=== PATIENT | male | born 1965 | race African-American/Black ===

== ENCOUNTER 2016-10-12 17:12 | Inpatient (IN) | payer OTHER ==
[~2016-10-12] VITALS: Ht 175.3 cm; Wt 125.6 kg
[~2016-10-12 17:12] MED LIST: ALBUTEROL SULF8.5 GM INH; ATORVASTATIN CA10 MG ORAL; NAPROXEN250 M1 PO
[2016-10-12 17:14] VITALS: BP 140/92
[2016-10-12 18:00] VITALS: BP 106/71
[2016-10-12 18:07] LABS: BASOPHILS % (AUTO) 1.1 % (0.0-2.0); EOSINOPHILS % (AUTO) 1.8 % (0.0-3.0); LYMPHOCYTES % (AUTO) 24.9 % (20.0-45.0); MEAN CORPUSCULAR HEMOGLOBIN 24.5 PG (27.0-31.0); MEAN CORPUSCULAR HGB CONC 32.1 G/DL (32.0-36.0); MEAN CORPUSCULAR VOLUME 76 FL (80-99); MONOCYTES % (AUTO) 6.2 % (1.0-10.0); NEUTROPHILS % (AUTO) 66.1 % (45.0-75.0); PLATELET COUNT 103 K/UL (150-450); RED BLOOD COUNT 5.75 M/UL (4.70-6.10); RED CELL DISTRIBUTION WIDTH 16.1 % (11.6-14.8); WHITE BLOOD COUNT 8.6 K/UL (4.8-10.8)
[2016-10-12] MEDS ORDERED: Solu-MEDROL 125mg Inj IVP ONE (18:15)
[2016-10-12] MEDS ORDERED: Ipratropium 0.02% Inh Soln 2.5ml UD HHN ONE (18:15)
[2016-10-12] MEDS ORDERED: Levalbuterol Inh UD 1.25mg/0.5ml HHN ONE (18:15)
[2016-10-12 18:17] LABS: INR 1.1 (0.9-1.1); PROTHROMBIN TIME 11.4 SEC (9.30-11.50)
--- NOTE | 2016-10-12 18:17 | Emergency Room Report ---
History of Present Illness General Chief Complaint: Chest Pain Source: Patient, Medical Record Present Illness HPI Patient presents with complaints of shortness of breath Patient reports that he was outside when he began feeling short of breath he felt that he was having an asthma attack In the next thing that he knows he passed out on the ground patient went to a store and told to call 911 Upon presentation complaining of shortness of breath Also has some chest tightness Denies any back or flank pain denies any vomiting or diarrhea patient reports being hospitalized one time in the past for his asthma He reports being out of his medications at this time Allergies: Coded Allergies: No Known Allergies (Unverified , 10/12/16) Patient History Past Medical History: see triage record Pertinent Family History: none Reviewed Nursing Documentation: PMH: Agreed, PSxH: Agreed Nursing Documentation-PMH Hx Asthma: Yes History Of Psychiatric Problem: Yes Review of Systems All Other Systems: negative except mentioned in HPI Physical Exam Vital Signs Date Time Temp Pulse Resp B/P Pulse Ox O2 Delivery O2 Flow Rate FiO2 10/12/16 17:04 98.2 163 20 140/92 96 Room Air Sp02 EP Interpretation: reviewed, normal General Appearance: mild distress - Appears short of breath Head: normocephalic, atraumatic Eyes: bilateral eye EOMI, bilateral eye PERRL ENT: hearing grossly normal, normal pharynx, TMs + canals normal, uvula midline Neck: full range of motion, supple, no meningismus, no bony tend Respiratory: respiratory distress, crackles, wheezing Cardiovascular #1: no edema, no gallop, no JVD, no murmur, tachycardia Gastrointestinal: normal bowel sounds, non tender, soft, no mass, no organomegaly, non-distended, no guarding, no hernia, no pulsatile mass, no rebound Genitourinary: no CVA tenderness Musculoskeletal: normal inspection Neurologic: oriented x3, responsive, 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 III-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 as tested, motor strength/ tone normal, sensory intact Psychiatric: mood/affect normal Skin: normal color, no rash, warm/dry, palpation normal Lymphatic: normal inspection, no adenopathy Procedures Critical Care Time Critical Care Time 40 minutes for multiple re\re evaluations Critical presentation with respiratory component Clinical diagnoses requiring acute intervention Not including any procedural time Medical Decision Making Diagnostic Impression: Primary Impression: Pulmonary emboli ER Course Patient is a fairly complex patient with multiple differential to consideration including but not limited to cardiac cardiopulmonary and vascular emergencies Patient's presentation is concerning for pulmonary embolism as well given the shortness of breath and tachycardia Patient's CT does show bilateral submassive pulmonary emboli Patient is provided with Lovenox at this time maintaining appropriate saturation Respirations also appropriate Consideration for further acute interventions made, however there is no higher level of care transfer capacity at this time to [facility] or [facility] And the patient will require further medical management Critical condition admitted to ICU Labs Test 10/12/16 17:50 10/12/16 18:00 10/12/16 19:00 White Blood Count 8.6 K/UL (4.8-10.8) Red Blood Count 5.75 M/UL (4.70-6.10) Hemoglobin 14.1 G/DL (14.2-18.0) Hematocrit 43.9 % (42.0-52.0) Mean Corpuscular Volume 76 FL (80-99) Mean Corpuscular Hemoglobin 24.5 PG (27.0-31.0) Mean Corpuscular Hemoglobin Concent 32.1 G/DL (32.0-36.0) Red Cell Distribution Width 16.1 % (11.6-14.8) Platelet Count 103 K/UL (150-450) Mean Platelet Volume 8.0 FL (6.5-10.1) Neutrophils (%) (Auto) 66.1 % (45.0-75.0) Lymphocytes (%) (Auto) 24.9 % (20.0-45.0) Monocytes (%) (Auto) 6.2 % (1.0-10.0) Eosinophils (%) (Auto) 1.8 % (0.0-3.0) Basophils (%) (Auto) 1.1 % (0.0-2.0) Prothrombin Time 11.4 SEC (9.30-11.50) Prothromb Time International Ratio 1.1 (0.9-1.1) Activated Partial Thromboplast Time 26 SEC (23-33) D-Dimer 34463 ng/mL (<500) Sodium Level 137 mEQ/L (135-145) Potassium Level 3.9 mEQ/L (3.4-4.9) Chloride Level 95 mEQ/L (98-107) Carbon Dioxide Level 19 mEQ/L (20-30) Anion Gap 23 (5-15) Blood Urea Nitrogen 13 mg/dL (7-23) Creatinine 1.5 mg/dL (0.7-1.2) Estimat Glomerular Filtration Rate 49.0 mL/min (>60) Glucose Level 128 mg/dL (74-106) Calcium Level 9.2 mg/dL (8.6-10.2) Total Bilirubin 0.4 mg/dL (0.0-1.2) Aspartate Amino Transf (AST/SGOT) 203 U/L (5-40) Alanine Aminotransferase (ALT/SGPT) 134 U/L (3-41) Alkaline Phosphatase 171 U/L (40-129) Total Creatine Kinase 188 U/L (38-174) Creatine Kinase MB 3.2 ng/mL (< 6.7) Creatine Kinase MB Relative Index 1.7 Troponin I < 0.30 ng/mL (<=0.30) Pro-B-Type Natriuretic Peptide 406 pg/mL (0-125) Total Protein 7.7 g/dL (6.6-8.7) Albumin 3.8 g/dL (3.5-5.2) Globulin 3.9 g/dL Albumin/Globulin Ratio 0.9 (1.0-2.7) Lipase 48 U/L (< 60) Lactic Acid Level 4.10 mmol/L (0.66-2.22) 3.00 mmol/L (0.66-2.22) Urine Opiates Screen Negative (NEGATIVE) Urine Barbiturates Screen Negative (NEGATIVE) Phencyclidine (PCP) Screen Negative (NEGATIVE) Urine Amphetamines Screen Negative (NEGATIVE) Urine Benzodiazepines Screen Negative (NEGATIVE) Urine Cocaine Screen Negative (NEGATIVE) Urine Marijuana (THC) Screen Negative (NEGATIVE) EKG Diagnostic Results Rate: tachycardiac Rhythm: other ST Segments: other Rhythm Strip Diag. Results EP Interpretation: yes Rate: 120 Rhythm: no PVC's, no ectopy, other - Sinus tach Chest X-Ray Diagnostic Results EP Interpretation: Yes Findings: no effusion, no pneumothorax, other - Right mid lobe hazziness, nonspecific Number of Views: 1 CT/MRI/US Diagnostic Results CT/MRI/US Diagnostic Results : Impression CT chest: Bilateral submassive pulmonary emboli with small cell component, and large the right ventricular finding relative to left ventricle suspicious for right heart strain 2.5 cm mass with adjacent mass changes right upper lobe suspicious for carcinoma Last Vital Signs Date Time Temp Pulse Resp B/P Pulse Ox O2 Delivery O2 Flow Rate FiO2 10/12/16 17:14 98.2 81 20 140/92 96 Room Air Status: improved Disposition: ADMITTED INPATIENT Condition: Critical VENU ALONSO D.O. Oct 12, 2016 18:17
[2016-10-12 18:25] LABS: ALBUMIN/GLOBULIN RATIO 0.9 (1.0-2.7); CALCIUM 9.2 mg/dL (8.6-10.2); CREATININE 1.5 mg/dL (0.7-1.2); POTASSIUM 3.9 mEQ/L (3.4-4.9); TOTAL PROTEIN 7.7 g/dL (6.6-8.7)
[2016-10-12 18:26] LABS: TROPONIN I < 0.30 ng/mL (<=0.30)
[2016-10-12 18:37] LABS: CKMB 3.2 ng/mL (< 6.7)
[2016-10-12 18:53] LABS: REFLEX LACTIC ACID YES OR NO YES
[2016-10-12 18:58] VITALS: BP 118/74
[2016-10-12 20:32] VITALS: BP 119/86
[2016-10-12] MEDS ORDERED: Enoxaparin 150mg Inj SUBQ SCH (21:00)
[2016-10-12 22:18] VITALS: BP 139/104
[2016-10-12 23:27] VITALS: BP 136/96
[2016-10-12] MEDS ORDERED: Morphine Sulfate 2mg/ml Inj IVP PRN (23:30)
[2016-10-12] MEDS ORDERED: Nitroglycerin Subl 0.4mg tab (Bottle Of 25) SL PRN (23:30)
[2016-10-12] MEDS ORDERED: Mylanta II UD 30ml ORAL PRN (23:30)
[2016-10-12] MEDS ORDERED: Miralax 17gm pkt ORAL PRN (23:30)
[2016-10-12] MEDS ORDERED: DuoNeb 0.5-3(2.5)mg/3ml neb HHN PRN (23:30)
--- NOTE | 2016-10-12 23:30 | History and Physical ---
History of Present Illness General Date patient seen: Oct 12, 2016 Reason for Hospitalization: Chest Pain Present Illness HPI 51 year old male with hx of Asthma, presents with complaints of shortness of breath then he passed out on. Upon presentation to ER he was complaining of shortness of breath also has some chest tightness. A CT of chest showed bilateral pulmonary embolism. He was started on Heparin drip and transferred to ICU. Allergies: Coded Allergies: IBUPROFEN (Verified Allergy, Unknown, 10/13/16) Medication History Scheduled Albuterol Sulfate* (Albuterol Sulfate Mdi*), 2 PUFF INH Q4H, (Reported) Atorvastatin Calcium* (Lipitor*), 10 MG ORAL BEDTIME, (Reported) Miscellaneous Medications Naproxen (Naproxen), 250 MG PO, (Reported) Patient History Healthcare decision maker Resuscitation status Advanced Directive on File Past Medical/Surgical History Past Medical/Surgical History: (1) History of asthma Review of Systems All Other Systems: negative except mentioned in HPI Physical Exam General Appearance: WD/WN Lines, tubes and drains: peripheral HEENT: normocephalic, atraumatic Neck: non-tender, normal alignment Respiratory/Chest: chest wall non-tender, lungs clear Cardiovascular/Chest: normal peripheral pulses, normal rate Genitourinary/Rectal: normal genital exam Extremities: normal range of motion Last 24 Hour Vital Signs Date Time Temp Pulse Resp B/P Pulse Ox O2 Delivery O2 Flow Rate FiO2 10/12/16 23:27 98.2 114 23 136/96 95 Nasal Cannula 3.0 10/12/16 22:18 98.2 110 23 139/104 95 Nasal Cannula 3.0 10/12/16 20:32 98.2 118 23 119/86 96 Simple Mask 4.0 10/12/16 18:58 132 22 118/74 97 Room Air 10/12/16 18:29 129 23 97 Simple Mask 3.0 10/12/16 18:28 127 17 Simple Mask 3.0 10/12/16 18:28 129 22 98 Simple Mask 3.0 10/12/16 18:27 131 18 Simple Mask 3.0 10/12/16 18:00 128 24 106/71 95 Room Air 10/12/16 17:14 98.2 81 20 140/92 96 Room Air 10/12/16 17:14 163 20 Room Air 10/12/16 17:04 98.2 163 20 140/92 96 Room Air Laboratory Tests Test 10/12/16 17:50 10/12/16 18:00 10/12/16 19:00 White Blood Count 8.6 K/UL (4.8-10.8) Red Blood Count 5.75 M/UL (4.70-6.10) Hemoglobin 14.1 G/DL (14.2-18.0) L Hematocrit 43.9 % (42.0-52.0) Mean Corpuscular Volume 76 FL (80-99) L Mean Corpuscular Hemoglobin 24.5 PG (27.0-31.0) L Mean Corpuscular Hemoglobin Concent 32.1 G/DL (32.0-36.0) Red Cell Distribution Width 16.1 % (11.6-14.8) H Platelet Count 103 K/UL (150-450) L Mean Platelet Volume 8.0 FL (6.5-10.1) Neutrophils (%) (Auto) 66.1 % (45.0-75.0) Lymphocytes (%) (Auto) 24.9 % (20.0-45.0) Monocytes (%) (Auto) 6.2 % (1.0-10.0) Eosinophils (%) (Auto) 1.8 % (0.0-3.0) Basophils (%) (Auto) 1.1 % (0.0-2.0) Prothrombin Time 11.4 SEC (9.30-11.50) Prothromb Time International Ratio 1.1 (0.9-1.1) Activated Partial Thromboplast Time 26 SEC (23-33) D-Dimer 92142 ng/mL (<500) H Sodium Level 137 mEQ/L (135-145) Potassium Level 3.9 mEQ/L (3.4-4.9) Chloride Level 95 mEQ/L (98-107) L Carbon Dioxide Level 19 mEQ/L (20-30) L Anion Gap 23 (5-15) H Blood Urea Nitrogen 13 mg/dL (7-23) Creatinine 1.5 mg/dL (0.7-1.2) H Estimat Glomerular Filtration Rate 49.0 mL/min (>60) Glucose Level 128 mg/dL (74-106) H Calcium Level 9.2 mg/dL (8.6-10.2) Total Bilirubin 0.4 mg/dL (0.0-1.2) Aspartate Amino Transf (AST/SGOT) 203 U/L (5-40) H Alanine Aminotransferase (ALT/SGPT) 134 U/L (3-41) H Alkaline Phosphatase 171 U/L (40-129) H Total Creatine Kinase 188 U/L (38-174) H Creatine Kinase MB 3.2 ng/mL (< 6.7) Creatine Kinase MB Relative Index 1.7 Troponin I < 0.30 ng/mL (<=0.30) Pro-B-Type Natriuretic Peptide 406 pg/mL (0-125) H Total Protein 7.7 g/dL (6.6-8.7) Albumin 3.8 g/dL (3.5-5.2) Globulin 3.9 g/dL Albumin/Globulin Ratio 0.9 (1.0-2.7) L Lipase 48 U/L (< 60) Lactic Acid Level 4.10 mmol/L (0.66-2.22) H 3.00 mmol/L (0.66-2.22) H Urine Opiates Screen Negative (NEGATIVE) Urine Barbiturates Screen Negative (NEGATIVE) Phencyclidine (PCP) Screen Negative (NEGATIVE) Urine Amphetamines Screen Negative (NEGATIVE) Urine Benzodiazepines Screen Negative (NEGATIVE) Urine Cocaine Screen Negative (NEGATIVE) Urine Marijuana (THC) Screen Negative (NEGATIVE) Height (Feet): 5 Height (Inches): 11.00 Weight (Pounds): 278 Medications Current Medications Medications (Trade) Dose Ordered Sig/Katia Route PRN Reason Start Time Stop Time Status Last Admin Dose Admin Enoxaparin Sodium (Lovenox) 130 mg EVERY 12 HOURS SUBQ 10/12/16 21:00 11/11/16 20:59 10/12/16 21:17 Assessment/Plan Problem List: (1) Pulmonary emboli ICD Codes: I26.99 - Other pulmonary embolism without acute cor pulmonale SNOMED: 28287062, 13074125 (2) Acute encephalopathy ICD Codes: G93.40 - Encephalopathy, unspecified SNOMED: 2115371 (3) Lung mass ICD Codes: R91.8 - Other nonspecific abnormal finding of lung field SNOMED: 657042316 (4) History of asthma ICD Codes: Z87.09 - Personal history of other diseases of the respiratory system SNOMED: 770952719 Respiratory: monitor respiratory rate, CXR Cardiac: continue to monitor HR/BP Renal: F/U I&O, check electrolytes Gastrointestinal: continue feedings/current rate Hematologic: other - continue heparin drip Neurologic: PRN Ativan, PRN Morphine Prophylaxis: Protonix Disposition: keep in ICU Discussed with: other - check CEA SATURNINO GALLEGOS Oct 12, 2016 23:30
[2016-10-13] VITALS (24 sets, daily range): BP systolic 111–162; BP diastolic 52–115
[2016-10-13 06:31] LABS: MEAN CORPUSCULAR HGB CONC 31.2 G/DL (32.0-36.0); MEAN CORPUSCULAR VOLUME 77 FL (80-99); MEAN PLATELET VOLUME 8.7 FL (6.5-10.1); PLATELET COUNT 139 K/UL (150-450); RED BLOOD COUNT 5.94 M/UL (4.70-6.10); RED CELL DISTRIBUTION WIDTH 16.6 % (11.6-14.8); WHITE BLOOD COUNT 7.7 K/UL (4.8-10.8)
[2016-10-13 06:46] LABS: INR 1.2 (0.9-1.1)
[2016-10-13 07:11] LABS: ALANINE AMINOTRANSFERASE 111 U/L (3-41); ALBUMIN/GLOBULIN RATIO 0.9 (1.0-2.7); ANION GAP 19 (5-15); ASPARTATE AMINO TRANSFERASE 80 U/L (5-40); CALCIUM 9.2 mg/dL (8.6-10.2); CARBON DIOXIDE 19 mEQ/L (20-30); CHLORIDE 100 mEQ/L (98-107); CREATININE 1.3 mg/dL (0.7-1.2); GLOMERULAR FILTRATION RATE > 60 mL/min (>60); HEMOLYSIS 2; SODIUM 138 mEQ/L (135-145); TOTAL PROTEIN 7.5 g/dL (6.6-8.7)
[2016-10-13] MEDS ORDERED: Heparin 25,000u/D5W 500ml 500 ML IV SCH ×2 (08:00)
[2016-10-13] MEDS ORDERED: Heparin 25,000u/D5W 500ml (VTE/AF) IV SCH ×2 (08:00→16:34)
[2016-10-13] MEDS ORDERED: Heparin 5000 units/ml inj IV ONE (08:00)
--- NOTE | 2016-10-13 10:28 | Diagnostic Imaging Report ---
ndication: SOB Technique: IV administration nonionic contrast. Spiral acquisitions obtained from the lung bases to the lung apices. Multiplanar and 3-D reconstructions were generated. Total dose length product 1045 mGycm. CTDIvol(s) filter 3, 113, 33 mGy Comparison: None Findings: There is good quality opacification of pulmonary arteries. Filling defects are seen in the distal right main pulmonary artery, and extending into the right upper lobe, right middle lobe, right lower lobe branches. Bullous is seen in the distal left main pulmonary artery, with emboli extending into the main left upper lobe branch and several segmental branches, into the main left lower lobe branch and segmental branches. There is mild dilatation of the right ventricle, which is wider than the left ventricle, suspicious for right heart strain. The pulmonary arteries are not thickened dilated. No thoracic aortic aneurysm or dissection. There is a 3.2 x 2 cm pleural-based mass in the periphery of the right upper lobe, with adjacent 14 mm satellite mass. No definite mediastinal lymphadenopathy. There are calcifications within left hilar lymph nodes The left lung base demonstrates some scarring or atelectasis. The remainder the lungs are clear. The pleural spaces are clear. The included thyroid is unremarkable. No axillary or chest wall mass or adenopathy. The included upper abdomen is unremarkable. Impression: Findings consistent with acute submassive bilateral pulmonary embolic disease. Relative dilatation of the right ventricle is highly suggestive of right heart strain 3.2 cm pleural-based right lung mass with satellite nodule, worrisome for pulmonary malignancy Evidence of old granulomatous disease within left hilar lymph nodes This agrees with the preliminary interpretation provided overnight by Dr. Myers. Dr. Myers also discussed the critical findings with Dr. Lazaro at 2004 on 10/12/[address] scanner at [facility] is accredited by the [employer] and the scans are performed using protocols designed to limit radiation exposure to as low as reasonably achievable to attain images of sufficient resolution adequate for diagnostic evaluation.
[2016-10-13] MEDS ORDERED: NS 275ml ONE (10:56)
[2016-10-13] MEDS ORDERED: Tubing IV Secondary IV ONE (10:56)
--- NOTE | 2016-10-13 11:17 | Diagnostic Imaging Report ---
Indication: CP Technique: One view of the chest Comparison: none Findings: There is a mass in the right midlung which measures approximately 2.3 cm diameter, corresponds to mass demonstrated in the same location on subsequent CT scan. The lungs and pleural spaces are otherwise clear. Heart size is normal. Impression: Right lung mass, corresponding to abnormality described on subsequent CT scan, concerning for neoplasm No acute process otherwise
--- NOTE | 2016-10-13 12:17 | Pulmonolgy Critical Care Note ---
Critical Care - Asmt/Plan Problems: (1) Pulmonary emboli (2) Acute encephalopathy (3) Lung mass (4) History of asthma Respiratory: monitor respiratory rate Cardiac: continue to monitor HR/BP Renal: F/U I&O, check electrolytes Hematologic: other - heparin drip, avoid coumadin now, since pt will need lung biospy Neurologic: PRN Ativan Affect: PRN ativan Prophylaxis: Protonix Critical Care - Objective Last 24 Hour Vital Signs Date Time Temp Pulse Resp B/P Pulse Ox O2 Delivery O2 Flow Rate FiO2 10/13/16 11:53 91 10/13/16 11:51 97.9 101 22 139/91 Nasal Cannula 2.0 10/13/16 11:03 88 18 124/82 98 Nasal Cannula 3.0 10/13/16 10:03 96 21 138/94 98 Nasal Cannula 3.0 10/13/16 08:57 96 22 124/86 96 Nasal Cannula 3.0 10/13/16 07:47 97.9 87 19 127/86 98 Nasal Cannula 3.0 10/13/16 07:45 87 10/13/16 07:10 94 Nasal Cannula 4.0 36 10/13/16 07:10 Nasal Cannula 4.0 36 10/13/16 07:10 85 18 Simple Mask 4.0 36 10/13/16 07:00 90 20 124/86 96 Nasal Cannula 3.0 10/13/16 06:00 86 20 112/89 96 Nasal Cannula 3.0 10/13/16 05:00 88 18 111/87 95 Nasal Cannula 3.0 10/13/16 04:00 97.9 91 18 125/87 95 Nasal Cannula 3.0 10/13/16 03:00 93 19 126/91 95 Nasal Cannula 3.0 10/13/16 02:00 99 19 122/92 96 Nasal Cannula 3.0 10/13/16 01:00 103 19 118/87 95 Nasal Cannula 3.0 10/13/16 00:25 98.1 106 21 162/115 95 Nasal Cannula 3.0 10/13/16 00:13 107 10/12/16 23:48 98.2 114 23 136/96 95 Nasal Cannula 3.0 10/12/16 23:27 98.2 114 23 136/96 95 Nasal Cannula 3.0 10/12/16 22:18 98.2 110 23 139/104 95 Nasal Cannula 3.0 10/12/16 20:32 98.2 118 23 119/86 96 Simple Mask 4.0 10/12/16 18:58 132 22 118/74 97 Room Air 10/12/16 18:29 129 23 97 Simple Mask 3.0 10/12/16 18:28 127 17 Simple Mask 3.0 10/12/16 18:28 129 22 98 Simple Mask 3.0 10/12/16 18:27 131 18 Simple Mask 3.0 10/12/16 18:00 128 24 106/71 95 Room Air 10/12/16 17:14 98.2 81 20 140/92 96 Room Air 10/12/16 17:14 163 20 Room Air 10/12/16 17:04 98.2 163 20 140/92 96 Room Air Status: awake Condition: critical, improving HEENT: atraumatic Neck: full ROM Lungs: clear Heart: HR/BP stable Abdomen: soft, non-tender Extremities: no C/C/E Decubiti: location Critical Care - Subjective ROS Limited/Unobtainable: No ICU Day: 2 Condition: critical, improving EKG Rhythm: Sinus Rhythm FI02: 36 Sputum Amount: None I&O: Intake and Output 10/12/16 10/13/16 19:00 07:00 Intake Total 2390 ml Output Total 1230 ml Balance 1160 ml Intake Oral 240 ml IV Total 2150 ml Output Urine Total 1230 ml # Voids 1 1 Labs: Laboratory Tests Test 10/12/16 17:50 10/12/16 18:00 10/12/16 19:00 10/13/16 05:35 White Blood Count 8.6 K/UL (4.8-10.8) 7.7 K/UL (4.8-10.8) Red Blood Count 5.75 M/UL (4.70-6.10) 5.94 M/UL (4.70-6.10) Hemoglobin 14.1 G/DL (14.2-18.0) L 14.2 G/DL (14.2-18.0) Hematocrit 43.9 % (42.0-52.0) 45.6 % (42.0-52.0) Mean Corpuscular Volume 76 FL (80-99) L 77 FL (80-99) L Mean Corpuscular Hemoglobin 24.5 PG (27.0-31.0) L 24.0 PG (27.0-31.0) L Mean Corpuscular Hemoglobin Concent 32.1 G/DL (32.0-36.0) 31.2 G/DL (32.0-36.0) L Red Cell Distribution Width 16.1 % (11.6-14.8) H 16.6 % (11.6-14.8) H Platelet Count 103 K/UL (150-450) L 139 K/UL (150-450) L Mean Platelet Volume 8.0 FL (6.5-10.1) 8.7 FL (6.5-10.1) Neutrophils (%) (Auto) 66.1 % (45.0-75.0) % (45.0-75.0) Lymphocytes (%) (Auto) 24.9 % (20.0-45.0) % (20.0-45.0) Monocytes (%) (Auto) 6.2 % (1.0-10.0) % (1.0-10.0) Eosinophils (%) (Auto) 1.8 % (0.0-3.0) % (0.0-3.0) Basophils (%) (Auto) 1.1 % (0.0-2.0) % (0.0-2.0) Prothrombin Time 11.4 SEC (9.30-11.50) 12.0 SEC (9.30-11.50) H Prothromb Time International Ratio 1.1 (0.9-1.1) 1.2 (0.9-1.1) H Activated Partial Thromboplast Time 26 SEC (23-33) 32 SEC (23-33) D-Dimer 58545 ng/mL (<500) H Sodium Level 137 mEQ/L (135-145) 138 mEQ/L (135-145) Potassium Level 3.9 mEQ/L (3.4-4.9) 5.0 mEQ/L (3.4-4.9) H Chloride Level 95 mEQ/L (98-107) L 100 mEQ/L (98-107) Carbon Dioxide Level 19 mEQ/L (20-30) L 19 mEQ/L (20-30) L Anion Gap 23 (5-15) H 19 (5-15) H Blood Urea Nitrogen 13 mg/dL (7-23) 12 mg/dL (7-23) Creatinine 1.5 mg/dL (0.7-1.2) H 1.3 mg/dL (0.7-1.2) H Estimat Glomerular Filtration Rate 49.0 mL/min (>60) > 60 mL/min (>60) Glucose Level 128 mg/dL (74-106) H 144 mg/dL (74-106) H Calcium Level 9.2 mg/dL (8.6-10.2) 9.2 mg/dL (8.6-10.2) Total Bilirubin 0.4 mg/dL (0.0-1.2) 0.2 mg/dL (0.0-1.2) Aspartate Amino Transf (AST/SGOT) 203 U/L (5-40) H 80 U/L (5-40) H Alanine Aminotransferase (ALT/SGPT) 134 U/L (3-41) H 111 U/L (3-41) H Alkaline Phosphatase 171 U/L (40-129) H 151 U/L (40-129) H Total Creatine Kinase 188 U/L (38-174) H Creatine Kinase MB 3.2 ng/mL (< 6.7) Creatine Kinase MB Relative Index 1.7 Troponin I < 0.30 ng/mL (<=0.30) Pro-B-Type Natriuretic Peptide 406 pg/mL (0-125) H Total Protein 7.7 g/dL (6.6-8.7) 7.5 g/dL (6.6-8.7) Albumin 3.8 g/dL (3.5-5.2) 3.7 g/dL (3.5-5.2) Globulin 3.9 g/dL 3.8 g/dL Albumin/Globulin Ratio 0.9 (1.0-2.7) L 0.9 (1.0-2.7) L Lipase 48 U/L (< 60) Lactic Acid Level 4.10 mmol/L (0.66-2.22) H 3.00 mmol/L (0.66-2.22) H 1.70 mmol/L (0.66-2.22) Urine Opiates Screen Negative (NEGATIVE) Urine Barbiturates Screen Negative (NEGATIVE) Phencyclidine (PCP) Screen Negative (NEGATIVE) Urine Amphetamines Screen Negative (NEGATIVE) Urine Benzodiazepines Screen Negative (NEGATIVE) Urine Cocaine Screen Negative (NEGATIVE) Urine Marijuana (THC) Screen Negative (NEGATIVE) SATURNINO GALLEGOS Oct 13, 2016 12:17
--- NOTE | 2016-10-13 13:01 | Cardiology Progress Note ---
Subjective Subjective syncope asthma submassive pulmonary embolism lung mass asthma history echo trop ekg heparin ivf will follow thank you [id number] Objective Last 24 Hour Vital Signs Date Time Temp Pulse Resp B/P Pulse Ox O2 Delivery O2 Flow Rate FiO2 10/13/16 11:53 91 10/13/16 11:51 97.9 101 22 139/91 Nasal Cannula 2.0 10/13/16 11:03 88 18 124/82 98 Nasal Cannula 3.0 10/13/16 10:03 96 21 138/94 98 Nasal Cannula 3.0 10/13/16 08:57 96 22 124/86 96 Nasal Cannula 3.0 10/13/16 07:47 97.9 87 19 127/86 98 Nasal Cannula 3.0 10/13/16 07:45 87 10/13/16 07:10 94 Nasal Cannula 4.0 36 10/13/16 07:10 Nasal Cannula 4.0 36 10/13/16 07:10 85 18 Simple Mask 4.0 36 10/13/16 07:00 90 20 124/86 96 Nasal Cannula 3.0 10/13/16 06:00 86 20 112/89 96 Nasal Cannula 3.0 10/13/16 05:00 88 18 111/87 95 Nasal Cannula 3.0 10/13/16 04:00 97.9 91 18 125/87 95 Nasal Cannula 3.0 10/13/16 03:00 93 19 126/91 95 Nasal Cannula 3.0 10/13/16 02:00 99 19 122/92 96 Nasal Cannula 3.0 10/13/16 01:00 103 19 118/87 95 Nasal Cannula 3.0 10/13/16 00:25 98.1 106 21 162/115 95 Nasal Cannula 3.0 10/13/16 00:13 107 10/12/16 23:48 98.2 114 23 136/96 95 Nasal Cannula 3.0 10/12/16 23:27 98.2 114 23 136/96 95 Nasal Cannula 3.0 10/12/16 22:18 98.2 110 23 139/104 95 Nasal Cannula 3.0 10/12/16 20:32 98.2 118 23 119/86 96 Simple Mask 4.0 10/12/16 18:58 132 22 118/74 97 Room Air 10/12/16 18:29 129 23 97 Simple Mask 3.0 10/12/16 18:28 127 17 Simple Mask 3.0 10/12/16 18:28 129 22 98 Simple Mask 3.0 10/12/16 18:27 131 18 Simple Mask 3.0 10/12/16 18:00 128 24 106/71 95 Room Air 10/12/16 17:14 98.2 81 20 140/92 96 Room Air 10/12/16 17:14 163 20 Room Air 10/12/16 17:04 98.2 163 20 140/92 96 Room Air Intake and Output 10/12/16 10/13/16 19:00 07:00 Intake Total 2390 ml Output Total 1230 ml Balance 1160 ml Intake Oral 240 ml IV Total 2150 ml Output Urine Total 1230 ml # Voids 1 1 Laboratory Tests Test 10/12/16 17:50 10/12/16 18:00 10/12/16 19:00 10/13/16 05:35 White Blood Count 8.6 K/UL (4.8-10.8) 7.7 K/UL (4.8-10.8) Red Blood Count 5.75 M/UL (4.70-6.10) 5.94 M/UL (4.70-6.10) Hemoglobin 14.1 G/DL (14.2-18.0) L 14.2 G/DL (14.2-18.0) Hematocrit 43.9 % (42.0-52.0) 45.6 % (42.0-52.0) Mean Corpuscular Volume 76 FL (80-99) L 77 FL (80-99) L Mean Corpuscular Hemoglobin 24.5 PG (27.0-31.0) L 24.0 PG (27.0-31.0) L Mean Corpuscular Hemoglobin Concent 32.1 G/DL (32.0-36.0) 31.2 G/DL (32.0-36.0) L Red Cell Distribution Width 16.1 % (11.6-14.8) H 16.6 % (11.6-14.8) H Platelet Count 103 K/UL (150-450) L 139 K/UL (150-450) L Mean Platelet Volume 8.0 FL (6.5-10.1) 8.7 FL (6.5-10.1) Neutrophils (%) (Auto) 66.1 % (45.0-75.0) % (45.0-75.0) Lymphocytes (%) (Auto) 24.9 % (20.0-45.0) % (20.0-45.0) Monocytes (%) (Auto) 6.2 % (1.0-10.0) % (1.0-10.0) Eosinophils (%) (Auto) 1.8 % (0.0-3.0) % (0.0-3.0) Basophils (%) (Auto) 1.1 % (0.0-2.0) % (0.0-2.0) Prothrombin Time 11.4 SEC (9.30-11.50) 12.0 SEC (9.30-11.50) H Prothromb Time International Ratio 1.1 (0.9-1.1) 1.2 (0.9-1.1) H Activated Partial Thromboplast Time 26 SEC (23-33) 32 SEC (23-33) D-Dimer 47441 ng/mL (<500) H Sodium Level 137 mEQ/L (135-145) 138 mEQ/L (135-145) Potassium Level 3.9 mEQ/L (3.4-4.9) 5.0 mEQ/L (3.4-4.9) H Chloride Level 95 mEQ/L (98-107) L 100 mEQ/L (98-107) Carbon Dioxide Level 19 mEQ/L (20-30) L 19 mEQ/L (20-30) L Anion Gap 23 (5-15) H 19 (5-15) H Blood Urea Nitrogen 13 mg/dL (7-23) 12 mg/dL (7-23) Creatinine 1.5 mg/dL (0.7-1.2) H 1.3 mg/dL (0.7-1.2) H Estimat Glomerular Filtration Rate 49.0 mL/min (>60) > 60 mL/min (>60) Glucose Level 128 mg/dL (74-106) H 144 mg/dL (74-106) H Calcium Level 9.2 mg/dL (8.6-10.2) 9.2 mg/dL (8.6-10.2) Total Bilirubin 0.4 mg/dL (0.0-1.2) 0.2 mg/dL (0.0-1.2) Aspartate Amino Transf (AST/SGOT) 203 U/L (5-40) H 80 U/L (5-40) H Alanine Aminotransferase (ALT/SGPT) 134 U/L (3-41) H 111 U/L (3-41) H Alkaline Phosphatase 171 U/L (40-129) H 151 U/L (40-129) H Total Creatine Kinase 188 U/L (38-174) H Creatine Kinase MB 3.2 ng/mL (< 6.7) Creatine Kinase MB Relative Index 1.7 Troponin I < 0.30 ng/mL (<=0.30) Pro-B-Type Natriuretic Peptide 406 pg/mL (0-125) H Total Protein 7.7 g/dL (6.6-8.7) 7.5 g/dL (6.6-8.7) Albumin 3.8 g/dL (3.5-5.2) 3.7 g/dL (3.5-5.2) Globulin 3.9 g/dL 3.8 g/dL Albumin/Globulin Ratio 0.9 (1.0-2.7) L 0.9 (1.0-2.7) L Lipase 48 U/L (< 60) Lactic Acid Level 4.10 mmol/L (0.66-2.22) H 3.00 mmol/L (0.66-2.22) H 1.70 mmol/L (0.66-2.22) Urine Opiates Screen Negative (NEGATIVE) Urine Barbiturates Screen Negative (NEGATIVE) Phencyclidine (PCP) Screen Negative (NEGATIVE) Urine Amphetamines Screen Negative (NEGATIVE) Urine Benzodiazepines Screen Negative (NEGATIVE) Urine Cocaine Screen Negative (NEGATIVE) Urine Marijuana (THC) Screen Negative (NEGATIVE) MICHAEL VACA Oct 13, 2016 13:01
--- NOTE | 2016-10-13 21:48 | Consultation ---
DATE OF CONSULTATION: 10/13/2016 REFERRING PHYSICIAN: Marcella Parker M.D. REASON FOR REFERRAL: Tachycardia. HISTORY OF PRESENT ILLNESS: This is a 51-year-old gentleman, who tells me that he has had some problems with asthma and he is walking to the store that he was talking and apparently passed out and found himself on the floor. He was having a lot of shortness of breath and eventually got himself up to the store and told him that he was having an asthma attack. Paramedics were summoned by the staff. Paramedics found the patient was sitting in the chair of the supermarket. Skin was dry, warm, and pale. The patient was admitted some albuterol and the patient respirations were at 30 beats per minute with decreased tidal volume and he get some improvement. He indicated that he had some tightness across his chest that was not radiating and lasted approximately 20 minutes and was given aspirin and nitroglycerin and was subsequently transferred to the Emergency Room at [facility]. His chest tightness is different that what he has had before. He does have some shortness of breath wake him up at night. He uses albuterol. He uses 2 pillows. He has had significant amount of dizziness when he stands up or walks apparently and has had some palpitations. PAST MEDICAL HISTORY: Positive for history of hyperlipidemia as well as asthma. No history of heart attack or cancer or stroke. No hepatitis or tuberculosis. No ulcers. No kidney, liver, thyroid problems, prostate problems, anemia, arthritis, blood clots, or prostate problems. ALLERGIES: He is allergic to ibuprofen. SOCIAL HISTORY: He never smoke or drink alcoholic beverages. Denies any drug use. REVIEW OF SYSTEMS: Gastrointestinal: Really negative. Genitourinary: Negative. Pulmonary: Positive for coughing, shortness of breath, or chest pain. Constitutional: Denies. Neurological: Negative. PHYSICAL EXAMINATION: GENERAL: Shows to be obese, middle-aged gentleman, in no apparent respiratory distress, although he is somewhat tachycardic and tachypneic, but not to the extent that was reported yesterday. LUNGS: He has had some decreased breath sounds. He has got expiratory wheezes. CARDIAC: Regular rate and rhythm. No heaves or thrills noted. ABDOMEN: Soft and obese. Positive bowel sounds. Nontender. EXTREMITIES: There is trace edema of lower extremities bilaterally. NEUROLOGIC: He is awake, alert, responsive, in no apparent respiratory distress. LABORATORY AND DIAGNOSTIC DATA: An EKG performed in the emergency room showed profound degree of sinus tachycardia rate of 146 beats per minute and no ST or T-wave of abnormalities of any significant degree. His white count is 7.7, hemoglobin 14.2, and platelet count of 139,000. Sodium was 130, potassium 5.3, chloride 100, bicarbonate 19, BUN 12, and creatinine 1.3. His lactic acid was 4.1, down to 1.7. His AST of 80, ALT of 150, and alkaline phosphatase of 151. Troponin 1 set was less than 0.03. His proBNP was only 406 at time of admission. His albumin was 3.7. His coags, INR of 1.2 and PTT of 32. His D-dimer was 16,093. He had a chest x-ray in the emergency room that shows right lung mass corresponding to abnormality for a neoplasm and a CT scan of the chest. CT pulmonary angiogram shows filling defect is seen in the distal right main pulmonary artery extending to the right upper lobe. This is all consistent with acute submassive pulmonary embolism relative dilatation of the right ventricle of 3.2 cm pleural-based lung mass. ASSESSMENT: 1. Syncope. 2. Submassive right pulmonary artery pulmonary embolism. 3. Sinus tachycardia secondary to above. 4. Pleural based lung mass. 5. History of asthma. PLAN: Dr. Parker, this patient was seen in cardiac consultation. The patient is on anticoagulation at the present time. His etiology of pulmonary embolism likely may be related to his reported possible neoplasm mass in the chest cavity. Workup will be left you and echocardiogram will be ordered to evaluate for RV strain and pulmonary artery systolic pressure and consider venous duplex study of the lower extremities to be performed. Cardiac enzymes will be ordered, although I suspect that may have abnormality may be present because of pulmonary embolism as well. We will follow the patient along with you. For his syncope, he needs intravenous hydration and we will repeat an echocardiogram. He appears to be somewhat sinus tachycardia that may be related to pulmonary embolism. I will follow the patient along with you. Caio Wills M.D. DR: HANSA JOB#: [id number] CC:
[2016-10-14] VITALS (17 sets, daily range): BP systolic 111–156; BP diastolic 62–99
[2016-10-14] MEDS ORDERED: Heparin 25,000u/D5W 500ml (VTE/AF) IV SCH ×2 (01:15→09:00)
[2016-10-14 07:42] LABS: BASOPHILS % (AUTO) 1.1 % (0.0-2.0); EOSINOPHILS % (AUTO) 0.8 % (0.0-3.0); LYMPHOCYTES % (AUTO) 18.3 % (20.0-45.0); MEAN CORPUSCULAR HEMOGLOBIN 24.2 PG (27.0-31.0); MEAN CORPUSCULAR HGB CONC 31.2 G/DL (32.0-36.0); MEAN CORPUSCULAR VOLUME 78 FL (80-99); MEAN PLATELET VOLUME 9.3 FL (6.5-10.1); MONOCYTES % (AUTO) 4.3 % (1.0-10.0); NEUTROPHILS % (AUTO) 75.4 % (45.0-75.0); PLATELET COUNT 145 K/UL (150-450); RED BLOOD COUNT 5.82 M/UL (4.70-6.10); WHITE BLOOD COUNT 16.2 K/UL (4.8-10.8)
[2016-10-14 08:14] LABS: ALANINE AMINOTRANSFERASE 73 U/L (3-41); ANION GAP 14 (5-15); ASPARTATE AMINO TRANSFERASE 37 U/L (5-40); CALCIUM 8.9 mg/dL (8.6-10.2); CARBON DIOXIDE 24 mEQ/L (20-30); CHLORIDE 103 mEQ/L (98-107); CREATININE 1.4 mg/dL (0.7-1.2); GLOMERULAR FILTRATION RATE > 60 mL/min (>60); HEMOLYSIS 20; MAGNESIUM 1.8 mg/dL (1.7-2.5); PHOSPHORUS 4.1 mg/dL (2.5-4.8); POTASSIUM 4.8 mEQ/L (3.4-4.9); SODIUM 141 mEQ/L (135-145); TOTAL PROTEIN 6.9 g/dL (6.6-8.7)
[2016-10-14 08:22] LABS: INR 1.2 (0.9-1.1); PROTHROMBIN TIME 12.1 SEC (9.30-11.50)
[2016-10-14 09:03] LABS: TROPONIN I < 0.30 ng/mL (<=0.30)
--- NOTE | 2016-10-14 10:21 | Pulmonolgy Critical Care Note ---
Critical Care - Asmt/Plan Problems: (1) Pulmonary emboli (2) Acute encephalopathy (3) Lung mass (4) History of asthma Respiratory: monitor respiratory rate, adjust FIO2 Cardiac: continue to monitor HR/BP Renal: F/U I&O, keep IV fluid Gastrointestinal: continue feedings/current rate Endocrine: monitor blood sugar, check HgA1C Hematologic: monitor H/H, other - ct guided biops of lung mass, then I will start coumadine Neurologic: PRN Ativan Prophylaxis: Protonix Notes Reviewed: cardio, renal Critical Care - Objective Last 24 Hour Vital Signs Date Time Temp Pulse Resp B/P Pulse Ox O2 Delivery O2 Flow Rate FiO2 10/14/16 08:00 85 10/14/16 08:00 97.9 86 17 143/91 97 Nasal Cannula 3.0 10/14/16 07:01 98 Nasal Cannula 3.0 32 10/14/16 07:01 Nasal Cannula 3.0 32 10/14/16 07:00 63 19 137/88 100 Nasal Cannula 3.0 10/14/16 06:00 64 16 133/90 98 Nasal Cannula 3.0 10/14/16 05:00 68 17 156/91 99 Nasal Cannula 3.0 10/14/16 04:00 98.1 67 16 113/77 98 Nasal Cannula 3.0 10/14/16 04:00 65 10/14/16 03:00 70 15 125/80 97 Nasal Cannula 3.0 10/14/16 02:00 72 14 112/76 98 Nasal Cannula 3.0 10/14/16 01:00 71 14 130/72 97 Nasal Cannula 3.0 10/14/16 00:00 79 10/14/16 00:00 98.1 80 20 126/83 98 Nasal Cannula 3.0 10/13/16 23:35 70 17 97 Nasal Cannula 3.0 32 10/13/16 23:27 32 10/13/16 23:26 Nasal Cannula 3.0 32 10/13/16 23:26 97 Nasal Cannula 3.0 32 10/13/16 23:26 75 16 99 Nasal Cannula 3.0 32 10/13/16 23:00 77 19 126/95 99 Nasal Cannula 3.0 10/13/16 22:00 83 19 133/84 98 Nasal Cannula 3.0 10/13/16 21:00 86 18 137/89 98 Nasal Cannula 3.0 81 10/13/16 20:00 96 10/13/16 20:00 98.1 87 18 137/89 97 Nasal Cannula 3.0 78 10/13/16 19:00 97 19 130/98 96 Nasal Cannula 3.0 79 10/13/16 18:00 94 22 139/97 98 Nasal Cannula 3.0 81 10/13/16 17:00 95 18 121/93 97 Nasal Cannula 3.0 80 10/13/16 16:00 97.9 94 21 129/91 97 Nasal Cannula 3.0 80 10/13/16 16:00 98 10/13/16 15:09 97 18 119/84 98 Nasal Cannula 3.0 10/13/16 14:00 102 23 126/85 95 Nasal Cannula 3.0 10/13/16 13:07 103 22 140/79 96 Nasal Cannula 2.0 10/13/16 11:53 91 10/13/16 11:51 97.9 101 22 139/91 Nasal Cannula 2.0 10/13/16 11:03 88 18 124/82 98 Nasal Cannula 3.0 Status: awake Condition: improving HEENT: atraumatic Lungs: clear Heart: HR/BP stable Abdomen: soft, active bowel sounds Micro: Microbiology Date/Time Source Procedure Growth Status 10/12/16 18:15 Blood Blood Culture - Preliminary NO GROWTH AFTER 24 HOURS Resulted 10/12/16 18:00 Blood Blood Culture - Preliminary NO GROWTH AFTER 24 HOURS Resulted Critical Care - Subjective ROS Limited/Unobtainable: No ICU Day: 3 Condition: improving FI02: 32 Sputum Amount: None Fluids: 0 Drips: heparin drip I&O: Intake and Output 10/13/16 10/14/16 19:00 07:00 Intake Total 1220.981 ml 616.938 ml Output Total 1180 ml 830 ml Balance 40.981 ml -213.062 ml Intake Oral 960 ml 240 ml IV Total 260.981 ml 376.938 ml Output Urine Total 1180 ml 830 ml # Voids 2 # Bowel Movements 1 Labs: Laboratory Tests Test 10/13/16 14:20 10/13/16 23:25 10/14/16 07:10 Activated Partial Thromboplast Time > 150 SEC (23-33) *H 118 SEC (23-33) H 123 SEC (23-33) H Carcinoembryonic Antigen 1.5 ng/mL White Blood Count 16.2 K/UL (4.8-10.8) #H Red Blood Count 5.82 M/UL (4.70-6.10) Hemoglobin 14.1 G/DL (14.2-18.0) L Hematocrit 45.2 % (42.0-52.0) Mean Corpuscular Volume 78 FL (80-99) L Mean Corpuscular Hemoglobin 24.2 PG (27.0-31.0) L Mean Corpuscular Hemoglobin Concent 31.2 G/DL (32.0-36.0) L Red Cell Distribution Width 17.0 % (11.6-14.8) H Platelet Count 145 K/UL (150-450) L Mean Platelet Volume 9.3 FL (6.5-10.1) Neutrophils (%) (Auto) 75.4 % (45.0-75.0) H Lymphocytes (%) (Auto) 18.3 % (20.0-45.0) L Monocytes (%) (Auto) 4.3 % (1.0-10.0) Eosinophils (%) (Auto) 0.8 % (0.0-3.0) Basophils (%) (Auto) 1.1 % (0.0-2.0) Prothrombin Time 12.1 SEC (9.30-11.50) H Prothromb Time International Ratio 1.2 (0.9-1.1) H Sodium Level 141 mEQ/L (135-145) Potassium Level 4.8 mEQ/L (3.4-4.9) Chloride Level 103 mEQ/L (98-107) Carbon Dioxide Level 24 mEQ/L (20-30) Anion Gap 14 (5-15) Blood Urea Nitrogen 13 mg/dL (7-23) Creatinine 1.4 mg/dL (0.7-1.2) H Estimat Glomerular Filtration Rate > 60 mL/min (>60) Glucose Level 95 mg/dL (74-106) Calcium Level 8.9 mg/dL (8.6-10.2) Phosphorus Level 4.1 mg/dL (2.5-4.8) Magnesium Level 1.8 mg/dL (1.7-2.5) Total Bilirubin 0.2 mg/dL (0.0-1.2) Aspartate Amino Transf (AST/SGOT) 37 U/L (5-40) Alanine Aminotransferase (ALT/SGPT) 73 U/L (3-41) H Alkaline Phosphatase 131 U/L (40-129) H Troponin I < 0.30 ng/mL (<=0.30) Pro-B-Type Natriuretic Peptide 967 pg/mL (0-125) H Total Protein 6.9 g/dL (6.6-8.7) Albumin 3.5 g/dL (3.5-5.2) Globulin 3.4 g/dL Albumin/Globulin Ratio 1.0 (1.0-2.7) SATURNINO GALLEGOS Oct 14, 2016 10:21
[2016-10-14] MEDS ORDERED: PPD Tuberculin Skin Test 5TU IDERMAL ONE (12:00)
[2016-10-14] MEDS ORDERED: Lidocaine 1% Plain 30 ml INJ ONE (13:30)
--- NOTE | 2016-10-14 16:01 | Diagnostic Imaging Report ---
Indication: MASS Technique: Informed consent obtained prior to commencement of procedure. Procedure time out performed. Localizing images are obtained. Under CT guidance, multiple attempts made at directing 18-gauge guide needle to the periphery of the lesion. This was challenging, due to the presence of the overlying scapula and ribs creating a narrow window for access into the lesion. At one point, the guide needle engaged the periphery of the lesion, and a single pass was made using coaxially inserted 18-gauge automated biopsy gun. However, only a scant specimen was obtained, and further attempts were made at directing the needle more centrally into the lesion. However, this was unsuccessful as a workup being deflected by the ribs. Ultimately, given concerns radiation exposure and patient discomfort, the procedure was terminated. The single obtained specimen was placed in formalin and sent to pathology. Patient otherwise tolerated the procedure well, without complication Total dose length product 4416 mGycm. CTDIvol(s) 29 x5, 28x15 mGy Comparison: Chest CT angiogram 10/12/2016 Findings: As above Impression: Attempted CT-guided lung biopsy, as described, successful in obtaining only a single small specimen, due to difficulty engaging the target lesion as described above. Procedure and findings discussed by phone with Dr. Parker
--- NOTE | 2016-10-14 16:21 | Diagnostic Imaging Report ---
Indication: S/P LUNGBX Technique: One view of the chest Comparison: 10/12/2016 Findings: Right lung mass is again demonstrated. No pneumothorax demonstrated. No new infiltrates. Impression: No evidence of postbiopsy pneumothorax
[2016-10-14] MEDS ORDERED: DuoNeb 0.5-3(2.5)mg/3ml neb HHN PRN (16:30)
[2016-10-14] MEDS ORDERED: Nitroglycerin Subl 0.4mg tab (Bottle Of 25) SL PRN (16:30)
[2016-10-14] MEDS ORDERED: Mylanta II UD 30ml ORAL PRN (16:30)
[2016-10-14] MEDS ORDERED: Morphine Sulfate 2mg/ml Inj IVP PRN (16:30)
[2016-10-14] MEDS ORDERED: Miralax 17gm pkt ORAL PRN (16:30)
[2016-10-14] MEDS ORDERED: Heparin 25,000u/D5W 500ml 500 ML IV SCH (18:20)
[2016-10-14] MEDS ORDERED: Heparin 5000 units/ml inj IV ONE (19:00)
--- NOTE | 2016-10-14 20:52 | Cardiology Progress Note ---
Assessment/Plan Assessment/Plan 1. Syncope. 2. Submassive right pulmonary artery pulmonary embolism. 3. Sinus tachycardia secondary to above. 4. Pleural based lung mass. 5. History of asthma. apparerntly had a bx done is on heparin may be able to swwitch to eliquis 10 bi for 1 week then 5 mg bid bx fu awiat echo not yet performed or resulted Subjective Cardiovascular: Denies: chest pain, lightheadedness, palpitations Respiratory: Denies: shortness of breath Gastrointestinal/Abdominal: Denies: abdominal pain, nausea Objective Last 24 Hour Vital Signs Date Time Temp Pulse Resp B/P Pulse Ox O2 Delivery O2 Flow Rate FiO2 10/14/16 20:00 97.9 89 21 119/99 99 Nasal Cannula 2.0 10/14/16 19:30 Room Air 10/14/16 19:30 93 Room Air 10/14/16 16:00 87 10/14/16 16:00 97.3 83 22 121/75 94 Nasal Cannula 2.0 10/14/16 14:00 89 19 135/62 100 Nasal Cannula 3.0 10/14/16 13:00 84 18 149/79 100 Nasal Cannula 3.0 10/14/16 12:00 98.2 89 18 128/86 99 Nasal Cannula 3.0 10/14/16 12:00 84 10/14/16 11:00 82 15 134/87 98 Nasal Cannula 3.0 10/14/16 10:00 83 15 111/75 98 Nasal Cannula 3.0 10/14/16 09:00 80 18 129/85 98 Nasal Cannula 3.0 10/14/16 08:00 85 10/14/16 08:00 97.9 86 17 143/91 97 Nasal Cannula 3.0 10/14/16 07:01 98 Nasal Cannula 3.0 32 10/14/16 07:01 Nasal Cannula 3.0 32 10/14/16 07:00 63 19 137/88 100 Nasal Cannula 3.0 10/14/16 06:00 64 16 133/90 98 Nasal Cannula 3.0 10/14/16 05:00 68 17 156/91 99 Nasal Cannula 3.0 10/14/16 04:00 98.1 67 16 113/77 98 Nasal Cannula 3.0 10/14/16 04:00 65 10/14/16 03:00 70 15 125/80 97 Nasal Cannula 3.0 10/14/16 02:00 72 14 112/76 98 Nasal Cannula 3.0 10/14/16 01:00 71 14 130/72 97 Nasal Cannula 3.0 10/14/16 00:00 79 10/14/16 00:00 98.1 80 20 126/83 98 Nasal Cannula 3.0 10/13/16 23:35 70 17 97 Nasal Cannula 3.0 32 10/13/16 23:27 32 10/13/16 23:26 Nasal Cannula 3.0 32 10/13/16 23:26 97 Nasal Cannula 3.0 32 10/13/16 23:26 75 16 99 Nasal Cannula 3.0 32 10/13/16 23:00 77 19 126/95 99 Nasal Cannula 3.0 10/13/16 22:00 83 19 133/84 98 Nasal Cannula 3.0 10/13/16 21:00 86 18 137/89 98 Nasal Cannula 3.0 81 General Appearance: no apparent distress, alert Neck: supple Cardiovascular: normal rate, regular rhythm Respiratory/Chest: lungs clear Abdomen: normal bowel sounds, non tender, soft Extremities: no swelling Intake and Output 10/13/16 10/14/16 19:00 07:00 Intake Total 1220.981 ml 616.938 ml Output Total 1180 ml 830 ml Balance 40.981 ml -213.062 ml Intake Oral 960 ml 240 ml IV Total 260.981 ml 376.938 ml Output Urine Total 1180 ml 830 ml # Voids 2 # Bowel Movements 1 Laboratory Tests Test 10/13/16 23:25 10/14/16 07:10 10/14/16 17:06 Activated Partial Thromboplast Time 118 SEC (23-33) H 123 SEC (23-33) H 23 SEC (23-33) White Blood Count 16.2 K/UL (4.8-10.8) #H Red Blood Count 5.82 M/UL (4.70-6.10) Hemoglobin 14.1 G/DL (14.2-18.0) L Hematocrit 45.2 % (42.0-52.0) Mean Corpuscular Volume 78 FL (80-99) L Mean Corpuscular Hemoglobin 24.2 PG (27.0-31.0) L Mean Corpuscular Hemoglobin Concent 31.2 G/DL (32.0-36.0) L Red Cell Distribution Width 17.0 % (11.6-14.8) H Platelet Count 145 K/UL (150-450) L Mean Platelet Volume 9.3 FL (6.5-10.1) Neutrophils (%) (Auto) 75.4 % (45.0-75.0) H Lymphocytes (%) (Auto) 18.3 % (20.0-45.0) L Monocytes (%) (Auto) 4.3 % (1.0-10.0) Eosinophils (%) (Auto) 0.8 % (0.0-3.0) Basophils (%) (Auto) 1.1 % (0.0-2.0) Prothrombin Time 12.1 SEC (9.30-11.50) H Prothromb Time International Ratio 1.2 (0.9-1.1) H Sodium Level 141 mEQ/L (135-145) Potassium Level 4.8 mEQ/L (3.4-4.9) Chloride Level 103 mEQ/L (98-107) Carbon Dioxide Level 24 mEQ/L (20-30) Anion Gap 14 (5-15) Blood Urea Nitrogen 13 mg/dL (7-23) Creatinine 1.4 mg/dL (0.7-1.2) H Estimat Glomerular Filtration Rate > 60 mL/min (>60) Glucose Level 95 mg/dL (74-106) Calcium Level 8.9 mg/dL (8.6-10.2) Phosphorus Level 4.1 mg/dL (2.5-4.8) Magnesium Level 1.8 mg/dL (1.7-2.5) Total Bilirubin 0.2 mg/dL (0.0-1.2) Aspartate Amino Transf (AST/SGOT) 37 U/L (5-40) Alanine Aminotransferase (ALT/SGPT) 73 U/L (3-41) H Alkaline Phosphatase 131 U/L (40-129) H Troponin I < 0.30 ng/mL (<=0.30) Pro-B-Type Natriuretic Peptide 967 pg/mL (0-125) H Total Protein 6.9 g/dL (6.6-8.7) Albumin 3.5 g/dL (3.5-5.2) Globulin 3.4 g/dL Albumin/Globulin Ratio 1.0 (1.0-2.7) Microbiology Date/Time Source Procedure Growth Status 10/12/16 18:15 Blood Blood Culture - Preliminary NO GROWTH AFTER 24 HOURS Resulted 10/12/16 18:00 Blood Blood Culture - Preliminary NO GROWTH AFTER 24 HOURS Resulted MICHAEL VACA Oct 14, 2016 20:52
--- NOTE | 2016-10-14 22:49 | Diagnostic Imaging Report ---
APPROVED REPORT CPT Code: 82062 Present Symptoms Shortness of breath BILATERAL: Imaging reveals a patent deep venous system bilaterally. There is no evidence of thrombus within the femoral, popliteal or tibial segments. The greater saphenous veins are also within normal limits. Doppler indicates normal spontaneous flow within these segments.
[2016-10-15 00:06] VITALS: BP 123/76
[2016-10-15] MEDS ORDERED: Heparin 5000 units/ml inj IV ONE ×2 (01:30→01:45)
[2016-10-15] MEDS: Heparin 25,000u/D5W 500ml 500 ML IV SCH ×2 (01:48→13:52)
[2016-10-15 04:08] VITALS: BP 128/70
[2016-10-15 07:52] VITALS: BP 120/60
[2016-10-15 09:25] LABS: BASOPHILS % (AUTO) 1.2 % (0.0-2.0); EOSINOPHILS % (AUTO) 2.9 % (0.0-3.0); LYMPHOCYTES % (AUTO) 31.1 % (20.0-45.0); MEAN CORPUSCULAR VOLUME 77 FL (80-99); MEAN PLATELET VOLUME 8.6 FL (6.5-10.1); MONOCYTES % (AUTO) 4.1 % (1.0-10.0); NEUTROPHILS % (AUTO) 60.7 % (45.0-75.0); PLATELET COUNT 149 K/UL (150-450); RED BLOOD COUNT 5.93 M/UL (4.70-6.10); RED CELL DISTRIBUTION WIDTH 16.6 % (11.6-14.8); WHITE BLOOD COUNT 7.5 K/UL (4.8-10.8)
[2016-10-15 09:38] LABS: INR 1.1 (0.9-1.1); PROTHROMBIN TIME 11.1 SEC (9.30-11.50)
[2016-10-15 09:47] LABS: ALANINE AMINOTRANSFERASE 60 U/L (3-41); ANION GAP 17 (5-15); ASPARTATE AMINO TRANSFERASE 33 U/L (5-40); CALCIUM 9.1 mg/dL (8.6-10.2); CARBON DIOXIDE 23 mEQ/L (20-30); CHLORIDE 97 mEQ/L (98-107); CREATININE 1.4 mg/dL (0.7-1.2); GLOMERULAR FILTRATION RATE > 60 mL/min (>60); HEMOLYSIS 3; MAGNESIUM 1.9 mg/dL (1.7-2.5); PHOSPHORUS 3.8 mg/dL (2.5-4.8); POTASSIUM 4.1 mEQ/L (3.4-4.9); SODIUM 137 mEQ/L (135-145); TOTAL PROTEIN 7.2 g/dL (6.6-8.7)
[2016-10-15 11:25] VITALS: BP 112/66
--- NOTE | 2016-10-15 13:51 | Pulmonology Progress Note ---
Assessment/Plan Problems: (1) Pulmonary emboli (2) Acute encephalopathy (3) Lung mass (4) History of asthma Assessment/Plan heparin only awaiting lung biopsy results Dr. Lopez called for thoracic surgery evaluation Subjective ROS Limited/Unobtainable: No Interval Events: had lung biopsy yesterday, very small fragment was taken Allergies: Coded Allergies: IBUPROFEN (Verified Allergy, Unknown, 10/13/16) Objective Last 24 Hour Vital Signs Date Time Temp Pulse Resp B/P Pulse Ox O2 Delivery O2 Flow Rate FiO2 10/15/16 11:55 76 10/15/16 11:25 97.6 72 20 112/66 98 Room Air 10/15/16 08:00 74 10/15/16 07:53 Room Air 10/15/16 07:52 97.3 71 20 120/60 99 Room Air 10/15/16 07:52 95 Room Air 10/15/16 07:50 74 16 Room Air 10/15/16 04:08 98.6 78 20 128/70 98 Room Air 10/15/16 04:00 71 10/15/16 00:06 97.9 70 21 123/76 95 Room Air 10/15/16 00:00 81 10/14/16 20:00 97.9 89 21 119/99 99 Nasal Cannula 2.0 10/14/16 20:00 90 10/14/16 19:30 Room Air 10/14/16 19:30 93 Room Air 10/14/16 16:00 87 10/14/16 16:00 97.3 83 22 121/75 94 Nasal Cannula 2.0 10/14/16 14:00 89 19 135/62 100 Nasal Cannula 3.0 Intake and Output 10/14/16 10/15/16 19:00 07:00 Intake Total 267.848 ml 577.424 ml Output Total 400 ml 800 ml Balance -132.152 ml -222.576 ml Intake Oral 200 ml 300 ml IV Total 67.848 ml 277.424 ml Output Urine Total 400 ml 800 ml # Voids 1 Objective General Appearance: WD/WN HEENT: normocephalic, atraumatic Respiratory/Chest: chest wall non-tender, lungs clear Breasts: no masses Cardiovascular: normal peripheral pulses, normal rate, regular rhythm Abdomen: normal bowel sounds, soft, non tender, no organomegaly, non distended Genitourinary: normal external genitalia Skin: no rash, no lesions 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 Complete 10/12/16 21:33 Rectum VRE Culture - Final NO VANCOMYCIN RESISTANT ENTEROCOCCUS ... Complete Laboratory Tests 10/14/16 17:06: Activated Partial Thromboplast Time 23 10/15/16 00:50: Activated Partial Thromboplast Time 44H 10/15/16 07:48: Activated Partial Thromboplast Time 80H, Prothrombin Time 11.1, Prothromb Time International Ratio 1.1 10/15/16 08:00: White Blood Count 7.5#, Red Blood Count 5.93, Hemoglobin 14.2, Hematocrit 45.9, Mean Corpuscular Volume 77L, Mean Corpuscular Hemoglobin 24.0L, Mean Corpuscular Hemoglobin Concent 31.0L, Red Cell Distribution Width 16.6H, Platelet Count 149L, Mean Platelet Volume 8.6, Neutrophils (%) (Auto) 60.7, Lymphocytes (%) (Auto) 31.1, Monocytes (%) (Auto) 4.1, Eosinophils (%) (Auto) 2.9, Basophils (%) (Auto) 1.2 10/15/16 08:20: Sodium Level 137, Potassium Level 4.1, Chloride Level 97L, Carbon Dioxide Level 23, Anion Gap 17H, Blood Urea Nitrogen 12, Creatinine 1.4H, Estimat Glomerular Filtration Rate > 60, Glucose Level 114H, Calcium Level 9.1, Phosphorus Level 3.8, Magnesium Level 1.9, Total Bilirubin 0.3, Aspartate Amino Transf (AST/SGOT ) 33, Alanine Aminotransferase (ALT/SGPT) 60H, Alkaline Phosphatase 143H, Total Protein 7.2, Albumin 3.7, Globulin 3.5, Albumin/Globulin Ratio 1.0 Current Medications Medications (Trade) Dose Ordered Sig/Katia Route PRN Reason Start Time Stop Time Status Last Admin Dose Admin Acetaminophen (Tylenol) 650 mg Q4H PRN ORAL fever 10/14/16 16:30 11/13/16 16:29 Al Hydroxide/Mg Hydroxide (Mylanta II) 30 ml Q6H PRN ORAL dyspepsia 10/14/16 16:30 11/13/16 16:29 Albuterol/ Ipratropium (DuoNeb 0.5-3(2.5)mg/3ml) 3 ml Q8H PRN HHN Shortness of Breath 10/14/16 16:30 10/19/16 16:29 Dextrose (Dextrose 50%) STAT PRN IV Hypoglycemia 10/14/16 16:30 11/13/16 16:29 Heparin Sodium/ Dextrose (Heparin) 500 ml @ 30.155 mls/ hr Q24H IV 10/15/16 01:21 11/13/16 18:19 10/15/16 01:48 Morphine Sulfate (Morphine Sulfate) 2 mg Q8H PRN IVP Moderate Pain (Pain Scale 4-6) 10/14/16 16:30 10/21/16 16:29 Nitroglycerin (Ntg) 0.4 mg Q5M X 3 DOSES PRN SL Prn Chest Pain 10/14/16 16:30 11/13/16 16:29 Ondansetron HCl (Zofran) 4 mg Q6H PRN IVP Nausea & Vomiting 10/14/16 16:30 11/13/16 16:29 Polyethylene Glycol (Miralax) 17 gm HSPRN PRN ORAL Constipation 10/14/16 16:30 11/13/16 16:29 Temazepam 15 mg 15 mg HSPRN PRN ORAL Insomnia 10/14/16 16:30 10/21/16 16:29 SATURNINO GALLEGOS Oct 15, 2016 13:51
--- NOTE | 2016-10-15 13:58 | Cardiology Report ---
APPROVED REPORT EKG Measurement Heart [id number] Sinus bradycardia Otherwise normal ECG
--- NOTE | 2016-10-15 14:10 | Cardiology Report ---
APPROVED REPORT EKG Measurement Heart [id number] ST and T wave abnormality Abnormal ECG
--- NOTE | 2016-10-15 14:42 | Cardiology Report ---
APPROVED REPORT EXAM: Two-dimensional and M-mode echocardiogram with Doppler and color Doppler. INDICATION Left ventricular function M-Mode DIMENSIONS IVSd0.6 (0.7-1.1cm)Left Atrium (MM)3.6 (1.6-4.0cm) LVDd3.1 (3.5-5.6cm)Aortic Root3.6 (2.0-3.7cm) PWd0.7 (0.7-1.1cm)Aortic Cusp Exc.2.0 (1.5-2.0cm) LVDs2.5 (2.5-4.0cm) PWs0.7 cm Normal left ventricular chamber size, systolic function and wall motion. Left ventricular ejection fraction estimated to be 60-65%. No evidence of left ventricular hypertrophy. No evidence of pericardial fat or effusion. Left cardiac chamber sizes are within normal limits. Mild right atrial and right ventricular enlargement by 2D. Focal aortic valve sclerosis with adequate cusp excursion Thickened mitral valve leaflets with normal excursion. Mild mitral annulus and aortic root calcification. Pulmonic valve is well visualized. Normal tricuspid valve structure. IVC not obtainable. A color flow and spectral Doppler study was performed and revealed: No aortic regurgitation. No mitral regurgitation. Left ventricular diastolic dysfunction grade 1. Mild tricuspid regurgitation. Tricuspid systolic velocities suggests peak right ventricular systolic pressure of 45 mmHg Consistent with mild pulmonary hypertension.
[2016-10-15 16:00] VITALS: BP 132/82
--- NOTE | 2016-10-15 19:41 | Cardiology Progress Note ---
Assessment/Plan Assessment/Plan 1. Syncope. 2. Submassive right pulmonary artery pulmonary embolism. 3. Sinus tachycardia secondary to above. 4. Pleural based lung mass. 5. History of asthma. apparently had a bx done is on heparin may be able to switch to eliquis 10 bid for 1 week then 5 mg bid bx fu echo no rv enlargement noted tele neg Subjective Cardiovascular: Denies: chest pain, lightheadedness Respiratory: Denies: SOB with excertion, shortness of breath Gastrointestinal/Abdominal: Denies: abdominal pain Genitourinary: Denies: burning Objective Last 24 Hour Vital Signs Date Time Temp Pulse Resp B/P Pulse Ox O2 Delivery O2 Flow Rate FiO2 10/15/16 16:00 98.1 81 19 132/82 97 Room Air 10/15/16 11:55 76 10/15/16 11:25 97.6 72 20 112/66 98 Room Air 10/15/16 08:00 74 10/15/16 07:53 Room Air 10/15/16 07:52 97.3 71 20 120/60 99 Room Air 10/15/16 07:52 95 Room Air 10/15/16 07:50 74 16 Room Air 10/15/16 04:08 98.6 78 20 128/70 98 Room Air 10/15/16 04:00 71 10/15/16 00:06 97.9 70 21 123/76 95 Room Air 10/15/16 00:00 81 10/14/16 20:00 97.9 89 21 119/99 99 Nasal Cannula 2.0 10/14/16 20:00 90 General Appearance: no apparent distress, alert Neck: supple Cardiovascular: normal rate, regular rhythm Respiratory/Chest: lungs clear, normal breath sounds Abdomen: normal bowel sounds, non tender, soft Extremities: no swelling Intake and Output 10/14/16 10/15/16 19:00 07:00 Intake Total 267.848 ml 577.424 ml Output Total 400 ml 800 ml Balance -132.152 ml -222.576 ml Intake Oral 200 ml 300 ml IV Total 67.848 ml 277.424 ml Output Urine Total 400 ml 800 ml # Voids 1 Laboratory Tests Test 10/15/16 00:50 10/15/16 07:48 10/15/16 08:00 10/15/16 08:20 Activated Partial Thromboplast Time 44 SEC (23-33) H 80 SEC (23-33) H Prothrombin Time 11.1 SEC (9.30-11.50) Prothromb Time International Ratio 1.1 (0.9-1.1) White Blood Count 7.5 K/UL (4.8-10.8) # Red Blood Count 5.93 M/UL (4.70-6.10) Hemoglobin 14.2 G/DL (14.2-18.0) Hematocrit 45.9 % (42.0-52.0) Mean Corpuscular Volume 77 FL (80-99) L Mean Corpuscular Hemoglobin 24.0 PG (27.0-31.0) L Mean Corpuscular Hemoglobin Concent 31.0 G/DL (32.0-36.0) L Red Cell Distribution Width 16.6 % (11.6-14.8) H Platelet Count 149 K/UL (150-450) L Mean Platelet Volume 8.6 FL (6.5-10.1) Neutrophils (%) (Auto) 60.7 % (45.0-75.0) Lymphocytes (%) (Auto) 31.1 % (20.0-45.0) Monocytes (%) (Auto) 4.1 % (1.0-10.0) Eosinophils (%) (Auto) 2.9 % (0.0-3.0) Basophils (%) (Auto) 1.2 % (0.0-2.0) Sodium Level 137 mEQ/L (135-145) Potassium Level 4.1 mEQ/L (3.4-4.9) Chloride Level 97 mEQ/L (98-107) L Carbon Dioxide Level 23 mEQ/L (20-30) Anion Gap 17 (5-15) H Blood Urea Nitrogen 12 mg/dL (7-23) Creatinine 1.4 mg/dL (0.7-1.2) H Estimat Glomerular Filtration Rate > 60 mL/min (>60) Glucose Level 114 mg/dL (74-106) H Calcium Level 9.1 mg/dL (8.6-10.2) Phosphorus Level 3.8 mg/dL (2.5-4.8) Magnesium Level 1.9 mg/dL (1.7-2.5) Total Bilirubin 0.3 mg/dL (0.0-1.2) Aspartate Amino Transf (AST/SGOT) 33 U/L (5-40) Alanine Aminotransferase (ALT/SGPT) 60 U/L (3-41) H Alkaline Phosphatase 143 U/L (40-129) H Total Protein 7.2 g/dL (6.6-8.7) Albumin 3.7 g/dL (3.5-5.2) Globulin 3.5 g/dL Albumin/Globulin Ratio 1.0 (1.0-2.7) Microbiology Date/Time Source Procedure Growth Status 10/12/16 21:33 Nasal Nares MRSA Culture - Final NO METHICILLIN RESISTANT STAPH AUREUS... Complete 10/12/16 21:33 Rectum VRE Culture - Final NO VANCOMYCIN RESISTANT ENTEROCOCCUS ... Complete MICHAEL VACA Oct 15, 2016 19:41
[2016-10-15 20:00] VITALS: BP_SYST 108; BP_SYST 148; BP_DIAS 64; BP_DIAS 87
[2016-10-16 00:44] VITALS: BP 128/85
[2016-10-16 04:09] VITALS: BP 121/78
[2016-10-16] MEDS: Heparin 25,000u/D5W 500ml 500 ML IV SCH ×2 (06:40→08:55)
[2016-10-16] MEDS ORDERED: Nitroglycerin Subl 0.4mg tab (Bottle Of 25) SL PRN ×2 (07:30)
[2016-10-16] MEDS ORDERED: DuoNeb 0.5-3(2.5)mg/3ml neb HHN PRN (08:30)
[2016-10-16 08:32] VITALS: BP 135/76
[2016-10-16] MEDS ORDERED: Mylanta II UD 30ml ORAL PRN (10:30)
[2016-10-16 11:43] VITALS: BP 139/89
--- NOTE | 2016-10-16 14:59 | Pulmonology Progress Note ---
Assessment/Plan Assessment/Plan ASSESSMENT acute bilateral pulmonary emboli lung pleural based mass asthma/COPD syncope elevated transminase ARF on CKD s/p lung biopsy mild pulmonary HTN PLAN OF CARE MS floor CTA chest with acute submassive bilateral PE Heparin drip CTA also revealed pleural based mass R lung, worrisome for malignancy s/p biopsy by IR pathology pending 10/[address] chest, abdomen and pelvis revealed: 3.1 x 1.8 cm masslike lesion in the periphery of the right upper lobe with adjacent satellite lesion. Both of these lesions appear slightly smaller than on the prior study. While remaining suspicious for neoplasm, the interim apparent decrease in size raises possibility that this could represent a masslike infiltrate which is improving. cardio follows ECHO with EF 60-65% and RVSP of 45 c/w mild pulmonary HTN Venous Duplex BLE negative CT surgeon follows plan for surgical biopsy , if lung lesion prove to be malignant- as per CT surgeon PFT done 10/16 CT surgeon wanted cardio clearance cardiology concluded that while patient does not have a serious cardiac risk, he is concerned that patient may need to be off a/coagulation post surgery for some time ( which is worrisome given bilateral submassive PE) LFT trending down pain management GI prophylaxis bowel regimen while on tele, no evidence of arrhythmia, troponin negative syncope most likely was related to acute bilateral submassive PE case discussed and evaluated by supervising physician Subjective Allergies: Coded Allergies: SHELLFISH DERIVED (Verified Allergy, Severe, seafood:Pt reports he develops swelling and hives., 10/16/16) copied from uncoded section IBUPROFEN (Verified Allergy, Unknown, 10/13/16) Subjective afebrile, no leukocytosis, seen by CT surgeon earlier no signs of respiratory distress on heparin drip Objective Last 24 Hour Vital Signs Date Time Temp Pulse Resp B/P Pulse Ox O2 Delivery O2 Flow Rate FiO2 10/16/16 11:43 97.9 94 18 139/89 98 Room Air 10/16/16 08:32 97.7 72 19 135/76 97 Room Air 10/16/16 04:09 98.7 73 20 121/78 94 Room Air 10/16/16 04:00 77 10/16/16 00:44 98.8 69 20 128/85 97 Room Air 10/16/16 00:00 86 10/15/16 20:00 98.8 94 18 148/87 95 Room Air 10/15/16 20:00 103 10/15/16 19:15 67 16 Room Air 10/15/16 19:15 96 Room Air 10/15/16 19:15 Room Air 10/15/16 16:00 96 10/15/16 16:00 98.1 81 19 132/82 97 Room Air Intake and Output 10/15/16 10/16/16 19:00 07:00 Intake Total 716.715 ml 212.085 ml Output Total 700 ml 900 ml Balance 16.715 ml -687.915 ml Intake Oral 480 ml IV Total 236.715 ml 212.085 ml Output Urine Total 700 ml 900 ml General Appearance: WD/WN, no acute distress HEENT: normocephalic, atraumatic, anicteric, mucous membranes moist, PERRL Respiratory/Chest: normal breath sounds - with moderate air exchange , no respiratory distress, no accessory muscle use Cardiovascular: normal peripheral pulses, normal rate, regular rhythm Abdomen: normal bowel sounds, soft, non tender - obese Genitourinary: normal external genitalia 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, no motor/sensory deficits, alert, oriented x 3, responsive Musculoskeletal: normal muscle bulk Laboratory Tests 10/16/16 04:15: Activated Partial Thromboplast Time 75H Current Medications Medications (Trade) Dose Ordered Sig/Katia Route PRN Reason Start Time Stop Time Status Last Admin Dose Admin Acetaminophen (Tylenol) 650 mg Q4H PRN ORAL fever 10/16/16 08:30 11/15/16 08:29 Al Hydroxide/Mg Hydroxide (Mylanta II) 30 ml Q6H PRN ORAL dyspepsia 10/16/16 10:30 11/15/16 10:29 Albuterol/ Ipratropium (DuoNeb 0.5-3(2.5)mg/3ml) 3 ml Q8H PRN HHN Shortness of Breath 10/16/16 08:30 10/21/16 08:29 Dextrose (Dextrose 50%) STAT PRN IV Hypoglycemia 10/16/16 16:30 11/15/16 16:29 Heparin Sodium/ Dextrose (Heparin) 500 ml @ 30.155 mls/ hr Q24H IV 10/16/16 08:00 11/15/16 07:59 10/16/16 08:55 Morphine Sulfate (Morphine Sulfate) 2 mg Q8H PRN IVP Moderate Pain (Pain Scale 4-6) 10/16/16 08:30 10/23/16 08:29 Nitroglycerin (Ntg) 0.4 mg Q5M X 3 DOSES PRN SL Prn Chest Pain 10/16/16 07:30 11/15/16 07:29 Ondansetron HCl (Zofran) 4 mg Q6H PRN IVP Nausea & Vomiting 10/16/16 10:30 11/15/16 10:29 Polyethylene Glycol (Miralax) 17 gm HSPRN PRN ORAL Constipation 10/16/16 16:30 11/15/16 16:29 Temazepam (Restoril) 15 mg HSPRN PRN ORAL Insomnia 10/16/16 16:30 10/23/16 16:29 [facility] NP Oct 16, 2016 14:59
[2016-10-16 15:48] VITALS: BP 124/83
[2016-10-16] MEDS ORDERED: Miralax 17gm pkt ORAL PRN (16:30)
--- NOTE | 2016-10-16 16:58 | Consultation ---
DATE OF CONSULTATION: 10/12/2016 SURGEON: Tripp Lopez M.D., Thoracic Surgery. REFERRING PHYSICIAN: Marcella Parker M.D. HISTORY OF PRESENT ILLNESS: The patient is a 51-year-old male, who was admitted to [facility] with respiratory embarrassment. Workup including a chest CT scan demonstrated a right-sided lung nodule and pulmonary embolism. The patient underwent a CT-guided biopsy, which was unsuccessful and Thoracic surgery was then consulted for surgical biopsy. PAST MEDICAL HISTORY: Notable for 1. Asthma. 2. Hyperlipidemia. 3. Arthritis. PAST SURGICAL HISTORY: None. MEDICATIONS: Reviewed. ALLERGIES: The patient has no known drug allergies. SOCIAL HISTORY: The patient moved from [facility] roughly nine years ago. He lives in [facility] alone. He has never and has a cousin in [facility]. The patient stopped smoking roughly 15 years ago and has had a 15 pack years of smoking history. He denies any alcohol or illicit drug use. PHYSICAL EXAMINATION: VITAL SIGNS: He is noted to be afebrile. His vitals are within normal limits. CARDIAC: Regular rate and rhythm. No gallops or murmur. RESPIRATORY: Clear to auscultation bilaterally. ABDOMEN: Soft, nondistended, and nontender with normoactive bowel sounds. EXTREMITIES: No evidence of cyanosis, clubbing, or edema. LABORATORY AND DIAGNOSTIC DATA: Laboratory study performed on 10/15/2016 show WBC 7.5, hemoglobin 14, hematocrit of 46 and a platelet count 149,000. Sodium is 137, potassium 4.1, chloride is 97, bicarbonate is 23, BUN is 17, creatinine is 1.4, and glucose is 114. PT is 11, PTT is 80, and INR is 1.1. ASSESSMENT AND PLAN: This is a 51-year-old male who was admitted to [facility] with respiratory embarrassment and found to have bilateral pulmonary embolism. The patient was evaluated at bedside. After reviewing his clinical database, I recommend that he undergo a baseline pulmonary function test. A surgical biopsy will be arranged and if the lung lesion is proven to be cancer, then a lobectomy with mediastinal lymph node dissection will be performed at the same operative setting. I want to thank you for referring this patient to my attention. If there are any questions in regards to this patient's clinical care, please do not hesitate to contact me. Yin M.D. DR: JASVIR JOB#: [id number] CC: JACKELYN
--- NOTE | 2016-10-16 16:58 | Diagnostic Imaging Report ---
Indication: Right lung mass, chest and abdominal abdominal pain Technique: IV administration nonionic contrast.. Spiral acquisitions obtained through the chest, abdomen, and pelvis. Multiplanar reconstructions were generated. Total dose length product 2682 mGycm. CTDIvol(s) 8, 113, 25, 26 mGy. Radiation dose was minimized using automated exposure control Comparison: Chest CT angiogram dated 10/12/2016 Findings: IV contrast opacification on all phases is suboptimal. Uncertain as to the reason why. Chest: Again demonstrated is a 3.1 x 1.8 cm masslike lesion in the periphery of the right upper lobe. This appears slightly smaller than on the prior study, previous maximal dimension 3.4 cm. In addition, the adjacent satellite nodule also appears to have decreased in size. No new infiltrates. Minimal atelectatic changes or scarring are seen in the periphery of the left lung along the course of the major fissure. No effusions. Again demonstrated are granulomatous lymph node calcifications in the left hilar region. No mediastinal or hilar mass or adenopathy. The included portions of the thyroid are unremarkable. No axillary or chest wall mass or adenopathy. The heart size is normal. A prominent lymph node is seen within the pericardial fat, also present previously. The esophagus is unremarkable. Abdomen pelvis: The liver, gallbladder, bile ducts, pancreas, spleen, adrenals, kidneys are unremarkable. There is an accessory splenule. No mesenteric or retroperitoneal mass or adenopathy. No pelvic mass or adenopathy. There is apparent wall thickening of the distal sigmoid colon and rectum. This may just be an artifact of nondistention, however. There is colonic diverticulosis. No evidence of diverticulitis. The appendix is normal. No small bowel distention. No free or loculated intraperitoneal air or fluid. There is diastases of the rectus abdominis tendon. As the small fat-containing umbilical hernia The bones demonstrate mild degenerative spondylosis changes, are otherwise unremarkable. Impression: 3.1 x 1.8 cm masslike lesion the periphery of the right upper lobe with adjacent satellite lesion. Both of these lesions appear slightly smaller than on the prior study. While remaining suspicious for neoplasm, the interim apparent decrease in size raises possibility this could represent a masslike infiltrate which is improving. Correlate with clinical and laboratory findings, consider followup imaging as indicated No new pulmonary lesions Evidence of old granulomatous disease in the left hilar lymph nodes Apparent wall thickening of the distal sigmoid colon and rectum. Possibly artifact of nondistention, but possibility of colitis/proctitis or neoplasm should be considered. Diverticulosis. No evidence of diverticulitis Incidental findings as noted, including accessory splenule, degenerative spondylosis The CT scanner at [facility] is accredited by the [employer] and the scans are performed using protocols designed to limit radiation exposure to as low as reasonably achievable to attain images of sufficient resolution adequate for diagnostic evaluation.
[2016-10-16 20:00] VITALS: BP 137/85
--- NOTE | 2016-10-16 20:27 | Cardiology Progress Note ---
Assessment/Plan Assessment/Plan 1. Syncope. 2. Submassive right pulmonary artery pulmonary embolism. 3. Sinus tachycardia secondary to above. 4. Pleural based lung mass. 5. History of asthma. apparently had a bx done is on heparin may be able to switch to eliquis 10 bid for 1 week then 5 mg bid echo no rv enlargement noted noted surgical plans cv risk not seem high however i am concerned about the pulmonary embolism situation and the fact that he may not b e able to take anticoagulation post op for some time!!! Subjective Cardiovascular: Denies: chest pain, lightheadedness, palpitations Respiratory: Denies: shortness of breath Gastrointestinal/Abdominal: Denies: abdomen distended, abdominal pain Genitourinary: Denies: burning Objective Last 24 Hour Vital Signs Date Time Temp Pulse Resp B/P Pulse Ox O2 Delivery O2 Flow Rate FiO2 10/16/16 15:48 98.0 79 19 124/83 97 Room Air 10/16/16 11:43 97.9 94 18 139/89 98 Room Air 10/16/16 08:32 97.7 72 19 135/76 97 Room Air 10/16/16 06:44 Room Air 10/16/16 06:43 73 16 Room Air 10/16/16 06:43 97 Room Air 10/16/16 04:09 98.7 73 20 121/78 94 Room Air 10/16/16 04:00 77 10/16/16 00:44 98.8 69 20 128/85 97 Room Air 10/16/16 00:00 86 General Appearance: no apparent distress, alert Cardiovascular: normal rate, regular rhythm Respiratory/Chest: lungs clear Abdomen: normal bowel sounds, non tender Extremities: no swelling Intake and Output 10/15/16 10/16/16 19:00 07:00 Intake Total 716.715 ml 212.085 ml Output Total 700 ml 900 ml Balance 16.715 ml -687.915 ml Intake Oral 480 ml IV Total 236.715 ml 212.085 ml Output Urine Total 700 ml 900 ml Laboratory Tests Test 10/16/16 04:15 Activated Partial Thromboplast Time 75 SEC (23-33) H MICHAEL VACA Oct 16, 2016 20:26
[2016-10-17] VITALS: BP 96/63
[2016-10-17] MEDS: Heparin 25,000u/D5W 500ml 500 ML IV SCH ×2 (01:17→17:19)
[2016-10-17 04:00] VITALS: BP 122/78
[2016-10-17 08:00] VITALS: BP 126/87
--- NOTE | 2016-10-17 10:29 | Pulmonology Progress Note ---
Assessment/Plan Assessment/Plan ASSESSMENT acute bilateral pulmonary emboli lung pleural based mass asthma/COPD syncope elevated transminase ARF on CKD s/p lung biopsy mild pulmonary HTN PLAN OF CARE MS floor CTA chest with acute submassive bilateral PE Heparin drip CTA also revealed pleural based mass R lung, worrisome for malignancy s/p biopsy by IR pathology pending 10/[address] chest, abdomen and pelvis revealed: 3.1 x 1.8 cm masslike lesion in the periphery of the right upper lobe with adjacent satellite lesion. Both of these lesions appear slightly smaller than on the prior study. While remaining suspicious for neoplasm, the interim apparent decrease in size raises possibility that this could represent a masslike infiltrate which is improving. cardio follows ECHO with EF 60-65% and RVSP of 45 c/w mild pulmonary HTN Venous Duplex BLE negative CT surgeon follows plan for surgical biopsy , if lung lesion prove to be malignant- as per CT surgeon PFT done 10/16 CT surgeon wanted cardio clearance cardiology concluded that while patient does not have a serious cardiac risk, he is concerned that patient may need to be off a/coagulation post surgery for some time ( which is worrisome given bilateral submassive PE) LFT trending down pain management GI prophylaxis bowel regimen while on tele, no evidence of arrhythmia, troponin negative syncope most likely was related to acute bilateral submassive PE case discussed and evaluated by supervising physician Subjective Allergies: Coded Allergies: SHELLFISH DERIVED (Verified Allergy, Severe, seafood:Pt reports he develops swelling and hives., 10/16/16) copied from uncoded section IBUPROFEN (Verified Allergy, Unknown, 10/13/16) Subjective afebrile, no leukocytosis, no signs of respiratory distress on heparin drip wants to have surgical biopsy done Objective Last 24 Hour Vital Signs Date Time Temp Pulse Resp B/P Pulse Ox O2 Delivery O2 Flow Rate FiO2 10/17/16 08:00 98.1 77 20 126/87 97 Room Air 10/17/16 07:25 74 20 Room Air 21 10/17/16 07:25 Room Air 21 10/17/16 07:25 94 Room Air 21 10/17/16 04:00 97.7 72 19 122/78 95 Room Air 10/17/16 00:00 97.5 83 20 96/63 97 Room Air 10/16/16 20:00 97.9 84 20 137/85 96 Room Air 10/16/16 19:30 Room Air 21 10/16/16 19:30 97 Room Air 21 10/16/16 19:30 78 20 Room Air 21 10/16/16 15:48 98.0 79 19 124/83 97 Room Air 10/16/16 11:43 97.9 94 18 139/89 98 Room Air Intake and Output 10/16/16 10/17/16 19:00 07:00 Intake Total 1011.550 ml 150.775 ml Output Total 200 ml 400 ml Balance 811.550 ml -249.225 ml Intake Oral 710 ml IV Total 301.550 ml 150.775 ml Output Urine Total 200 ml 400 ml # Voids 4 2 Objective General Appearance: WD/WN, no acute distress HEENT: normocephalic, atraumatic, anicteric, mucous membranes moist, PERRL Respiratory/Chest: normal breath sounds - with moderate air exchange , no respiratory distress, no accessory muscle use Cardiovascular: normal peripheral pulses, normal rate, regular rhythm Abdomen: normal bowel sounds, soft, non tender - obese Genitourinary: normal external genitalia Neurologic/Psychiatric: sediment remediation consultant II-XII grossly normal, no motor/sensory deficits, alert, oriented x 3, responsive Musculoskeletal: normal muscle bulk Laboratory Tests 10/17/16 04:45: Activated Partial Thromboplast Time 75H Current Medications Medications (Trade) Dose Ordered Sig/Katia Route PRN Reason Start Time Stop Time Status Last Admin Dose Admin Acetaminophen (Tylenol) 650 mg Q4H PRN ORAL fever 10/16/16 08:30 11/15/16 08:29 Al Hydroxide/Mg Hydroxide (Mylanta II) 30 ml Q6H PRN ORAL dyspepsia 10/16/16 10:30 11/15/16 10:29 Albuterol/ Ipratropium (DuoNeb 0.5-3(2.5)mg/3ml) 3 ml Q8H PRN HHN Shortness of Breath 10/16/16 08:30 10/21/16 08:29 Dextrose (Dextrose 50%) STAT PRN IV Hypoglycemia 10/16/16 16:30 11/15/16 16:29 Heparin Sodium/ Dextrose (Heparin) 500 ml @ 30.155 mls/ hr Q24H IV 10/16/16 08:00 11/15/16 07:59 10/17/16 01:17 Morphine Sulfate (Morphine Sulfate) 2 mg Q8H PRN IVP Moderate Pain (Pain Scale 4-6) 10/16/16 08:30 10/23/16 08:29 Nitroglycerin (Ntg) 0.4 mg Q5M X 3 DOSES PRN SL Prn Chest Pain 10/16/16 07:30 11/15/16 07:29 Ondansetron HCl (Zofran) 4 mg Q6H PRN IVP Nausea & Vomiting 10/16/16 10:30 11/15/16 10:29 Polyethylene Glycol (Miralax) 17 gm HSPRN PRN ORAL Constipation 10/16/16 16:30 11/15/16 16:29 Temazepam (Restoril) 15 mg HSPRN PRN ORAL Insomnia 10/16/16 16:30 10/23/16 16:29 10/17/16 01:20 Bashir ([facility])Elaine NP Oct 17, 2016 10:29
[2016-10-17 12:00] VITALS: BP_SYST 126; BP_SYST 151; BP_DIAS 71; BP_DIAS 86
[2016-10-17 16:00] VITALS: BP 126/63
[2016-10-17 20:00] VITALS: BP 124/83
[2016-10-17] MEDS: Morphine Sulfate 2mg/ml Inj IVP PRN (22:13)
[2016-10-18 00:45] VITALS: BP 125/88
[2016-10-18 04:00] VITALS: BP 117/81
[2016-10-18 08:00] VITALS: BP 132/77
[2016-10-18 08:05] LABS: BASOPHILS % (AUTO) 0.7 % (0.0-2.0); EOSINOPHILS % (AUTO) 3.8 % (0.0-3.0); LYMPHOCYTES % (AUTO) 28.6 % (20.0-45.0); MEAN CORPUSCULAR HEMOGLOBIN 24.3 PG (27.0-31.0); MEAN CORPUSCULAR HGB CONC 31.5 G/DL (32.0-36.0); MEAN CORPUSCULAR VOLUME 77 FL (80-99); MEAN PLATELET VOLUME 8.5 FL (6.5-10.1); MONOCYTES % (AUTO) 4.7 % (1.0-10.0); NEUTROPHILS % (AUTO) 62.2 % (45.0-75.0); PLATELET COUNT 151 K/UL (150-450); RED BLOOD COUNT 5.61 M/UL (4.70-6.10); RED CELL DISTRIBUTION WIDTH 16.5 % (11.6-14.8); WHITE BLOOD COUNT 8.7 K/UL (4.8-10.8)
[2016-10-18 08:10] LABS: ANION GAP 15 (5-15); CALCIUM 8.9 mg/dL (8.6-10.2); CARBON DIOXIDE 25 mEQ/L (20-30); CHLORIDE 99 mEQ/L (98-107); CREATININE 1.2 mg/dL (0.7-1.2); GLOMERULAR FILTRATION RATE > 60 mL/min (>60); HEMOLYSIS 3; POTASSIUM 4.2 mEQ/L (3.4-4.9); SODIUM 139 mEQ/L (135-145)
[2016-10-18] MEDS: Heparin 25,000u/D5W 500ml 500 ML IV SCH (09:45)
[2016-10-18 12:09] VITALS: BP 133/64
--- NOTE | 2016-10-18 13:54 | Pulmonology Progress Note ---
Assessment/Plan Assessment/Plan ASSESSMENT acute bilateral pulmonary emboli lung pleural based mass asthma/COPD syncope elevated transminase ARF on CKD s/p lung biopsy mild pulmonary HTN PLAN OF CARE MS floor CTA chest with acute submassive bilateral PE Heparin drip , PTT therapeutic CTA also revealed pleural based mass R lung, worrisome for malignancy s/p biopsy by IR pathology pending 10/[address] chest, abdomen and pelvis revealed: 3.1 x 1.8 cm masslike lesion in the periphery of the right upper lobe with adjacent satellite lesion. Both of these lesions appear slightly smaller than on the prior study. While remaining suspicious for neoplasm, the interim apparent decrease in size raises possibility that this could represent a masslike infiltrate which is improving. cardio follows ECHO with EF 60-65% and RVSP of 45 c/w mild pulmonary HTN Venous Duplex BLE negative CT surgeon follows plan for surgical biopsy tentatively planned for Wednesday PFT done 10/16 CT surgeon wanted cardio clearance cardiology concluded that while patient does not have a serious cardiac risk, he is concerned that patient may need to be off a/coagulation post surgery for some time ( which is worrisome given bilateral submassive PE) LFT trending down pain management GI prophylaxis bowel regimen while on tele, no evidence of arrhythmia, troponin negative syncope most likely was related to acute bilateral submassive PE stop heparin drip 4-6 hrs prior to surgery when exact time of surgery determined case discussed and evaluated by supervising physician Subjective Allergies: Coded Allergies: SHELLFISH DERIVED (Verified Allergy, Severe, seafood:Pt reports he develops swelling and hives., 10/16/16) copied from uncoded section IBUPROFEN (Verified Allergy, Unknown, 10/13/16) Subjective afebrile, no leukocytosis, no signs of respiratory distress on heparin drip wants to have surgical biopsy done , tentatively planned for Wednesday Objective Last 24 Hour Vital Signs Date Time Temp Pulse Resp B/P Pulse Ox O2 Delivery O2 Flow Rate FiO2 10/18/16 12:09 98.5 88 20 133/64 97 Room Air 10/18/16 08:00 98.1 87 20 132/77 97 Room Air 10/18/16 07:26 82 18 Room Air 21 10/18/16 04:00 97.7 73 21 117/81 93 Room Air 10/18/16 00:45 97.9 72 21 125/88 93 Room Air 10/17/16 20:43 78 18 Room Air 21 10/17/16 20:00 98.2 82 17 124/83 97 Room Air 10/17/16 16:00 97.3 81 18 126/63 96 Room Air Intake and Output 10/17/16 10/18/16 19:00 07:00 Intake Total 1141.960 ml 991.3 ml Output Total 1500 ml Balance 1141.960 ml -508.7 ml Intake Oral 720 ml 240 ml IV Total 421.960 ml 751.3 ml Output Urine Total 1500 ml # Voids 4 # Bowel Movements 3 Objective General Appearance: WD/WN, no acute distress HEENT: normocephalic, atraumatic, anicteric, mucous membranes moist, PERRL Respiratory/Chest: normal breath sounds - with moderate air exchange , no respiratory distress, no accessory muscle use Cardiovascular: normal peripheral pulses, normal rate, regular rhythm Abdomen: normal bowel sounds, soft, non tender - obese Genitourinary: normal external genitalia Neurologic/Psychiatric: solution coordinator II-XII grossly normal, no motor/sensory deficits, alert, oriented x 3, responsive Musculoskeletal: normal muscle bulk Laboratory Tests 10/18/16 06:30: White Blood Count 8.7, Red Blood Count 5.61, Hemoglobin 13.6L, Hematocrit 43.4, Mean Corpuscular Volume 77L, Mean Corpuscular Hemoglobin 24.3L, Mean Corpuscular Hemoglobin Concent 31.5L, Red Cell Distribution Width 16.5H, Platelet Count 151, Mean Platelet Volume 8.5, Neutrophils (%) (Auto) 62.2, Lymphocytes (%) (Auto) 28.6, Monocytes (%) (Auto) 4.7, Eosinophils (%) (Auto) 3.8H, Basophils (%) (Auto) 0.7, Activated Partial Thromboplast Time 68H, Sodium Level 139, Potassium Level 4.2, Chloride Level 99, Carbon Dioxide Level 25, Anion Gap 15, Blood Urea Nitrogen 11, Creatinine 1.2, Estimat Glomerular Filtration Rate > 60, Glucose Level 91, Calcium Level 8.9 Current Medications Medications (Trade) Dose Ordered Sig/Katia Route PRN Reason Start Time Stop Time Status Last Admin Dose Admin Acetaminophen (Tylenol) 650 mg Q4H PRN ORAL fever 10/16/16 08:30 11/15/16 08:29 Al Hydroxide/Mg Hydroxide (Mylanta II) 30 ml Q6H PRN ORAL dyspepsia 10/16/16 10:30 11/15/16 10:29 Albuterol/ Ipratropium (DuoNeb 0.5-3(2.5)mg/3ml) 3 ml Q8H PRN HHN Shortness of Breath 10/16/16 08:30 10/21/16 08:29 Dextrose (Dextrose 50%) STAT PRN IV Hypoglycemia 10/16/16 16:30 11/15/16 16:29 Heparin Sodium/ Dextrose (Heparin) 500 ml @ 30.155 mls/ hr Q24H IV 10/16/16 08:00 11/15/16 07:59 10/18/16 09:45 Morphine Sulfate (Morphine Sulfate) 2 mg Q8H PRN IVP Moderate Pain (Pain Scale 4-6) 10/16/16 08:30 10/23/16 08:29 10/17/16 22:13 Nitroglycerin (Ntg) 0.4 mg Q5M X 3 DOSES PRN SL Prn Chest Pain 10/16/16 07:30 11/15/16 07:29 Ondansetron HCl (Zofran) 4 mg Q6H PRN IVP Nausea & Vomiting 10/16/16 10:30 11/15/16 10:29 Polyethylene Glycol (Miralax) 17 gm HSPRN PRN ORAL Constipation 10/16/16 16:30 11/15/16 16:29 Temazepam (Restoril) 15 mg HSPRN PRN ORAL Insomnia 10/16/16 16:30 10/23/16 16:29 10/17/16 01:20 [facility]Elaine Delgado NP Oct 18, 2016 13:54
[2016-10-18 16:20] VITALS: BP 134/78
[2016-10-18] MEDS: Morphine Sulfate 2mg/ml Inj IVP PRN (16:42)
[2016-10-18 20:00] VITALS: BP 137/88
[2016-10-19 00:35] VITALS: BP 122/86
[2016-10-19] MEDS: Morphine Sulfate 2mg/ml Inj IVP PRN ×2 (02:44→16:09)
[2016-10-19] MEDS: Heparin 25,000u/D5W 500ml 500 ML IV SCH ×2 (02:45→19:18)
[2016-10-19 04:00] VITALS: BP 123/76
[2016-10-19 06:26] LABS: BASOPHILS % (AUTO) 1.1 % (0.0-2.0); EOSINOPHILS % (AUTO) 3.7 % (0.0-3.0); MEAN CORPUSCULAR HEMOGLOBIN 24.4 PG (27.0-31.0); MEAN CORPUSCULAR HGB CONC 31.8 G/DL (32.0-36.0); MEAN CORPUSCULAR VOLUME 77 FL (80-99); MONOCYTES % (AUTO) 5.2 % (1.0-10.0); NEUTROPHILS % (AUTO) 67.1 % (45.0-75.0); PLATELET COUNT 166 K/UL (150-450); RED CELL DISTRIBUTION WIDTH 16.7 % (11.6-14.8); WHITE BLOOD COUNT 8.7 K/UL (4.8-10.8)
[2016-10-19 07:04] LABS: ANION GAP 14 (5-15); CALCIUM 9.1 mg/dL (8.6-10.2); CARBON DIOXIDE 27 mEQ/L (20-30); CHLORIDE 98 mEQ/L (98-107); CREATININE 1.2 mg/dL (0.7-1.2); GLOMERULAR FILTRATION RATE > 60 mL/min (>60); HEMOLYSIS 4; POTASSIUM 4.5 mEQ/L (3.4-4.9); SODIUM 139 mEQ/L (135-145)
[2016-10-19 08:00] VITALS: BP 120/75
--- NOTE | 2016-10-19 12:27 | Anethesia Preoperative Eval ---
Anesthesia Pre-op PMH/ROS General Date of Evaluation: Oct 19, 2016 Time of Evaluation: 12:30 Anesthesiologist: Carter ASA Score: ASA 3 Mallampati Score Class I : Soft palate, uvula, fauces, pillars visible Class II: Soft palate, uvula, fauces visible Class III: Soft palate, base of uvula visible Class IV: Only hard plate visible Mallampati Classification: Class II Surgeon: John Diagnosis: Bilateral pulmonary emboli Surgical Procedure: Surgical biopsy, possible lobectomy Allergies: Coded Allergies: SHELLFISH DERIVED (Verified Allergy, Severe, seafood:Pt reports he develops swelling and hives., 10/16/16) copied from uncoded section IBUPROFEN (Verified Allergy, Unknown, 10/13/16) Past Medical History Cardiovascular: Denies: CAD, HTN, AL, arrhythmia, other, valve dz Pulmonary: Reports: asthma Gastrointestinal/Genitourinary: Denies: CRI, ESRD, GERD, other Neurologic/Psychiatric: Denies: CVA, TIA, dementia, depression/anxiety, other Endocrine: Denies: DM, hypothyroidism, other, steroids HEENT: Denies: [place] (L), [place] (R), cataract (L), cataract (R), glaucoma, other Hematology/Immune: Denies: DVT, anemia, bleeding disorder, other Musculoskeletal/Integumentary: Reports: OA, Denies: DDD, DJD, RA, edema, other PMH Narrative: Asthma, OA PSxH Narrative: No prior surgery Anesthesia Pre-op Phys. Exam Physician Exam Last Vital Signs Date Time Temp Pulse Resp B/P Pulse Ox O2 Delivery O2 Flow Rate FiO2 10/19/16 08:00 97.9 77 20 120/75 95 Room Air 10/19/16 07:46 21 10/14/16 20:00 2.0 Constitutional: NAD Neurologic: CN 2-12 intact Cardiovascular: RRR, no M/R/G Respiratory: CTA Gastrointestinal: S/NT/ND Airway Exam Mallampati Score: Class II MO: full ROM: full Teeth: intact Anesthesia Pre-op A/P Labs Hematology Test 10/19/16 05:30 White Blood Count 8.7 K/UL (4.8-10.8) Red Blood Count 5.40 M/UL (4.70-6.10) Hemoglobin 13.2 G/DL (14.2-18.0) L Hematocrit 41.6 % (42.0-52.0) L Mean Corpuscular Volume 77 FL (80-99) L Mean Corpuscular Hemoglobin 24.4 PG (27.0-31.0) L Mean Corpuscular Hemoglobin Concent 31.8 G/DL (32.0-36.0) L Red Cell Distribution Width 16.7 % (11.6-14.8) H Platelet Count 166 K/UL (150-450) Mean Platelet Volume 10.0 FL (6.5-10.1) Neutrophils (%) (Auto) 67.1 % (45.0-75.0) Lymphocytes (%) (Auto) 23.0 % (20.0-45.0) Monocytes (%) (Auto) 5.2 % (1.0-10.0) Eosinophils (%) (Auto) 3.7 % (0.0-3.0) H Basophils (%) (Auto) 1.1 % (0.0-2.0) Coagulation Test 10/19/16 05:30 Activated Partial Thromboplast Time 70 SEC (23-33) H Chemistry Test 10/19/16 05:30 Sodium Level 139 mEQ/L (135-145) Potassium Level 4.5 mEQ/L (3.4-4.9) Chloride Level 98 mEQ/L (98-107) Carbon Dioxide Level 27 mEQ/L (20-30) Anion Gap 14 (5-15) Blood Urea Nitrogen 11 mg/dL (7-23) Creatinine 1.2 mg/dL (0.7-1.2) Estimat Glomerular Filtration Rate > 60 mL/min (>60) Glucose Level 96 mg/dL (74-106) Calcium Level 9.1 mg/dL (8.6-10.2) Studies Pre-op Studies: EKG - Sinus chelo now, echo - EF=60-65%, no aortic or mitral regurg, no wall motion abnormality Risk Assessment & Plan Assessment: Lung mass and pulmonary embolism Plan: GETA, one lung ventilation. Status Change Before Surgery: QIAN Gomez M.D. Oct 19, 2016 12:27
[2016-10-19 12:30] VITALS: BP 120/80
[2016-10-19 16:19] VITALS: BP 146/83
--- NOTE | 2016-10-19 19:29 | Cardiology Progress Note ---
Assessment/Plan Assessment/Plan 1. Syncope. 2. Submassive right pulmonary artery pulmonary embolism. 3. Sinus tachycardia secondary to above. 4. Pleural based lung mass. 5. History of asthma. is on heparin may be able to switch to eliquis 10 bid for 1 week then 5 mg bid when ready for pos post op echo no rv enlargement noted, lv function normal noted surgical plans acceptable risk form a cardiac view point for proposed surgery Subjective Cardiovascular: Denies: chest pain, lightheadedness, palpitations Respiratory: Denies: shortness of breath Gastrointestinal/Abdominal: Denies: abdominal pain Genitourinary: Denies: burning Objective Last 24 Hour Vital Signs Date Time Temp Pulse Resp B/P Pulse Ox O2 Delivery O2 Flow Rate FiO2 10/19/16 16:19 97.3 79 18 146/83 98 Room Air 10/19/16 12:30 97.7 80 18 120/80 97 Room Air 10/19/16 08:00 97.9 77 20 120/75 95 Room Air 10/19/16 07:46 70 18 Room Air 21 10/19/16 04:00 97.3 85 20 123/76 95 Room Air 10/19/16 00:35 97.7 85 21 122/86 96 Room Air 10/18/16 20:00 97.5 89 19 137/88 97 Room Air General Appearance: no apparent distress Neck: non-tender Cardiovascular: normal rate, regular rhythm Respiratory/Chest: lungs clear, normal breath sounds Abdomen: normal bowel sounds, non tender, soft Extremities: no swelling Intake and Output 10/18/16 10/19/16 19:00 07:00 Intake Total 1021.1 ml 601.2 ml Output Total 2075 ml Balance 1021.1 ml -1473.8 ml Intake Oral 690 ml 240 ml IV Total 331.1 ml 361.2 ml Output Urine Total 2075 ml # Voids 2 Laboratory Tests Test 10/19/16 05:30 White Blood Count 8.7 K/UL (4.8-10.8) Red Blood Count 5.40 M/UL (4.70-6.10) Hemoglobin 13.2 G/DL (14.2-18.0) L Hematocrit 41.6 % (42.0-52.0) L Mean Corpuscular Volume 77 FL (80-99) L Mean Corpuscular Hemoglobin 24.4 PG (27.0-31.0) L Mean Corpuscular Hemoglobin Concent 31.8 G/DL (32.0-36.0) L Red Cell Distribution Width 16.7 % (11.6-14.8) H Platelet Count 166 K/UL (150-450) Mean Platelet Volume 10.0 FL (6.5-10.1) Neutrophils (%) (Auto) 67.1 % (45.0-75.0) Lymphocytes (%) (Auto) 23.0 % (20.0-45.0) Monocytes (%) (Auto) 5.2 % (1.0-10.0) Eosinophils (%) (Auto) 3.7 % (0.0-3.0) H Basophils (%) (Auto) 1.1 % (0.0-2.0) Activated Partial Thromboplast Time 70 SEC (23-33) H Sodium Level 139 mEQ/L (135-145) Potassium Level 4.5 mEQ/L (3.4-4.9) Chloride Level 98 mEQ/L (98-107) Carbon Dioxide Level 27 mEQ/L (20-30) Anion Gap 14 (5-15) Blood Urea Nitrogen 11 mg/dL (7-23) Creatinine 1.2 mg/dL (0.7-1.2) Estimat Glomerular Filtration Rate > 60 mL/min (>60) Glucose Level 96 mg/dL (74-106) Calcium Level 9.1 mg/dL (8.6-10.2) MICHAEL VACA Oct 19, 2016 19:29
[2016-10-19 20:00] VITALS: BP 123/81
--- NOTE | 2016-10-19 23:17 | Pulmonology Progress Note ---
Assessment/Plan Problems: (1) Pulmonary emboli (2) Acute encephalopathy (3) Lung mass (4) History of asthma Assessment/Plan heparin only awaiting lung biopsy results Dr. Lopez called for thoracic surgery evaluation Subjective Allergies: Coded Allergies: SHELLFISH DERIVED (Verified Allergy, Severe, seafood:Pt reports he develops swelling and hives., 10/16/16) copied from uncoded section IBUPROFEN (Verified Allergy, Unknown, 10/13/16) Objective Last 24 Hour Vital Signs Date Time Temp Pulse Resp B/P Pulse Ox O2 Delivery O2 Flow Rate FiO2 10/19/16 20:00 97.9 92 19 123/81 97 Room Air 10/19/16 19:30 90 20 Room Air 21 10/19/16 16:19 97.3 79 18 146/83 98 Room Air 10/19/16 12:30 97.7 80 18 120/80 97 Room Air 10/19/16 08:00 97.9 77 20 120/75 95 Room Air 10/19/16 07:46 70 18 Room Air 21 10/19/16 04:00 97.3 85 20 123/76 95 Room Air 10/19/16 00:35 97.7 85 21 122/86 96 Room Air Intake and Output 10/18/16 10/19/16 19:00 07:00 Intake Total 1021.1 ml 601.2 ml Output Total 2075 ml Balance 1021.1 ml -1473.8 ml Intake Oral 690 ml 240 ml IV Total 331.1 ml 361.2 ml Output Urine Total 2075 ml # Voids 2 Objective General Appearance: WD/WN HEENT: normocephalic, atraumatic Respiratory/Chest: chest wall non-tender, lungs clear Breasts: no masses Cardiovascular: normal peripheral pulses, normal rate, regular rhythm Abdomen: normal bowel sounds, soft, non tender, no organomegaly, non distended Genitourinary: normal external genitalia Skin: no rash, no lesions Neurologic/Psychiatric: block hand II-XII grossly normal Lymphatic: no neck adenopathy Musculoskeletal: normal muscle bulk Laboratory Tests 10/19/16 05:30: White Blood Count 8.7, Red Blood Count 5.40, Hemoglobin 13.2L, Hematocrit 41.6L , Mean Corpuscular Volume 77L, Mean Corpuscular Hemoglobin 24.4L, Mean Corpuscular Hemoglobin Concent 31.8L, Red Cell Distribution Width 16.7H, Platelet Count 166, Mean Platelet Volume 10.0, Neutrophils (%) (Auto) 67.1, Lymphocytes (%) (Auto) 23.0, Monocytes (%) (Auto) 5.2, Eosinophils (%) (Auto) 3.7H, Basophils (%) (Auto) 1.1, Activated Partial Thromboplast Time 70H, Sodium Level 139, Potassium Level 4.5, Chloride Level 98, Carbon Dioxide Level 27, Anion Gap 14, Blood Urea Nitrogen 11, Creatinine 1.2, Estimat Glomerular Filtration Rate > 60, Glucose Level 96, Calcium Level 9.1 Current Medications Medications (Trade) Dose Ordered Sig/Katia Route PRN Reason Start Time Stop Time Status Last Admin Dose Admin Acetaminophen (Tylenol) 650 mg Q4H PRN ORAL fever 10/16/16 08:30 11/15/16 08:29 Al Hydroxide/Mg Hydroxide (Mylanta II) 30 ml Q6H PRN ORAL dyspepsia 10/16/16 10:30 11/15/16 10:29 Albuterol/ Ipratropium (DuoNeb 0.5-3(2.5)mg/3ml) 3 ml Q8H PRN HHN Shortness of Breath 10/16/16 08:30 10/21/16 08:29 Dextrose (Dextrose 50%) STAT PRN IV Hypoglycemia 10/16/16 16:30 11/15/16 16:29 Heparin Sodium/ Dextrose (Heparin) 500 ml @ 30.155 mls/ hr Q24H IV 10/16/16 08:00 11/15/16 07:59 10/19/16 19:18 Morphine Sulfate (Morphine Sulfate) 2 mg Q8H PRN IVP Moderate Pain (Pain Scale 4-6) 10/16/16 08:30 10/23/16 08:29 10/19/16 16:09 Nitroglycerin (Ntg) 0.4 mg Q5M X 3 DOSES PRN SL Prn Chest Pain 10/16/16 07:30 11/15/16 07:29 Ondansetron HCl (Zofran) 4 mg Q6H PRN IVP Nausea & Vomiting 10/16/16 10:30 11/15/16 10:29 Polyethylene Glycol (Miralax) 17 gm HSPRN PRN ORAL Constipation 10/16/16 16:30 11/15/16 16:29 Temazepam (Restoril) 15 mg HSPRN PRN ORAL Insomnia 10/16/16 16:30 10/23/16 16:29 10/18/16 23:58 SATURNINO GALLEGOS Oct 19, 2016 23:17
[2016-10-20] VITALS (16 sets, daily range): BP systolic 99–145; BP diastolic 62–89
[2016-10-20] MEDS: Morphine Sulfate 2mg/ml Inj IVP PRN ×2 (00:50→21:07)
[2016-10-20] MEDS ORDERED: Lidocaine 1% 10mg/ml/Epi 0.005mg/ml 30ml vial INJ ONE (07:33)
[2016-10-20] MEDS ORDERED: Bupivacaine w/Epi 0.25% 30ml Vial INJ ONE (07:33)
[2016-10-20 08:05] LABS: INR 1.1 (0.9-1.1); PROTHROMBIN TIME 10.7 SEC (9.30-11.50)
[2016-10-20] MEDS ORDERED: Cefepime 1gm vial ONE (09:20)
[2016-10-20] MEDS ORDERED: Bacitracin 50000 Units Vial IRRIG ONE (09:30)
[2016-10-20] MEDS ORDERED: LR 1000ml 1,000 ML IVLG SCH (09:31)
--- NOTE | 2016-10-20 09:31 | Immediate Post-Op Evaluation ---
Immediate Post-Op Evalulation Immediate Post-Op Evalulation Procedure: Vats, Bx Date of Evaluation: Oct 20, 2016 Time of Evaluation: 14:27 IV Fluids: 1500 LR Blood Products: 0 Estimated Blood Loss: 50 Urinary Output: 350 Blood Pressure Systolic: 102 Blood Pressure Diastolic: 64 Pulse Rate: 87 Respiratory Rate: 16 O2 Sat by Pulse Oximetry: 100 Temperature (Fahrenheit): 98.6 Pain Score (1-10): 1 Nausea: No Vomiting: No Complications 0 Patient Status: awake, reacts, patent, extubated, none Hydration Status: adequate Dru Grams Ancef IV Given Within 1 Hr of Incision: Yes Time Given: 09:46 Tung Ley MD Oct 20, 2016 09:31
[2016-10-20] MEDS ORDERED: Meperidine 25mg/ml Inj IV PRN (09:45)
[2016-10-20] MEDS ORDERED: Midazolam 2mg/2ml Inj IVP PRN (09:45)
[2016-10-20] MEDS ORDERED: Metoclopramide 10mg/2ml Inj IVP PRN (09:45)
[2016-10-20] MEDS ORDERED: LORazepam Inj 2mg/ml 1ml IV PRN (09:45)
[2016-10-20] MEDS ORDERED: fentaNYL 100 mcg/2 mL IV PRN (09:45)
[2016-10-20] MEDS ORDERED: Hydromorphone 0.5mg/0.5ml inj IVP PRN (09:45)
[2016-10-20] MEDS ORDERED: DiphenhydrAMINE 50mg/ml Inj IVP PRN (09:45)
[2016-10-20] MEDS ORDERED: Labetalol 5mg/ml 20ml vial IV PRN (09:45)
[2016-10-20] MEDS ORDERED: Oxycodone/Acetaminophen 5-325 ORAL PRN (09:45)
[2016-10-20] MEDS ORDERED: Norco 5mg/325mg tab ORAL PRN (09:45)
[2016-10-20] MEDS ORDERED: Atropine Inj 1mg/10ml Syr IV PRN (09:45)
[2016-10-20] MEDS ORDERED: Norco 7.5mg/325mg tab ORAL PRN (09:45)
[2016-10-20] MEDS ORDERED: Amikacin 500mg/2mL Inj IV ONE (10:00)
--- NOTE | 2016-10-20 10:05 | Pre-Procedure Note/Attestation ---
Pre-Procedure Note/Attestation Complete Prior to Procedure Planned Procedure: right Procedure Narrative: Bronchoscopy, right video-assisted thoracoscopic surgery, right upper lobe wedge resection, possible upper lobectomy and thoracotomy Indications for Procedure Pre-Operative Diagnosis: Right upper lobe mass Attestation I attest that I discussed the nature of the procedure; its benefits; risks and complications; and alternatives (and the risks and benefits of such alternatives ), prior to the procedure, with the patient (or the patient's legal associate sales representative). I attest that, if there was a reasonable possibility of needing a blood transfusion, the patient (or the patient's legal associate sales representative) was given the [place] [employer] standardized written summary, pursuant to the Anthony Mitchell Blood Safety Act ([place] Health and Safety Code # 1645, as amended). I attest that I re-evaluated the patient just prior to the surgery and that there has been no change in the patient's H&P, except as documented below: LACHELLE CLAROS M.D. Oct 20, 2016 10:04
[2016-10-20] MEDS ORDERED: D5 1/2NS w/KCl 20mEq 1,000 ML IV SCH (10:24)
[2016-10-20] MEDS ORDERED: Miralax 17gm pkt ORAL PRN (10:30)
[2016-10-20 11:00] LABS: BASOPHILS % (AUTO) 0.5 % (0.0-2.0); EOSINOPHILS % (AUTO) 2.8 % (0.0-3.0); LYMPHOCYTES % (AUTO) 20.3 % (20.0-45.0); MEAN CORPUSCULAR HEMOGLOBIN 23.9 PG (27.0-31.0); MEAN CORPUSCULAR HGB CONC 30.7 G/DL (32.0-36.0); MEAN CORPUSCULAR VOLUME 78 FL (80-99); MEAN PLATELET VOLUME 10.4 FL (6.5-10.1); MONOCYTES % (AUTO) 6.1 % (1.0-10.0); NEUTROPHILS % (AUTO) 70.2 % (45.0-75.0); PLATELET COUNT 170 K/UL (150-450); RED BLOOD COUNT 5.64 M/UL (4.70-6.10); RED CELL DISTRIBUTION WIDTH 16.7 % (11.6-14.8); WHITE BLOOD COUNT 8.7 K/UL (4.8-10.8)
[2016-10-20 11:15] LABS: ANION GAP 13 (5-15); CALCIUM 9.3 mg/dL (8.6-10.2); CARBON DIOXIDE 27 mEQ/L (20-30); CHLORIDE 99 mEQ/L (98-107); CREATININE 1.1 mg/dL (0.7-1.2); GLOMERULAR FILTRATION RATE > 60 mL/min (>60); HEMOLYSIS 6; MAGNESIUM 1.9 mg/dL (1.7-2.5); PHOSPHORUS 3.6 mg/dL (2.5-4.8); POTASSIUM 4.9 mEQ/L (3.4-4.9); SODIUM 139 mEQ/L (135-145)
[2016-10-20] MEDS ORDERED: Norco 10mg/325mg tab ORAL PRN (14:00)
--- NOTE | 2016-10-20 14:00 | Operative Note - PDOC ---
Operative Note Operative Note Date of Operation/Procedure: Oct 20, 2016 Pre-op Diagnosis: Right upper lobe mass Procedure: Bronchoscopy, R VATS, RUL wedge #1, RUL #2 for control of parenchymal airleak, RML bullous resection & intercostal nerve block Post-op Diagnosis: same Post-op Diagnosis: same as pre-op Surgeon: Lachelle Lopez Metalsmith Apprentice: Isaiah Humphreys Anesthesia: general Specimen: yes Complications: none Condition: stable LACHELLE LOPEZ M.D. Oct 20, 2016 14:00
[2016-10-20] MEDS ORDERED: Bacitracin 50000 Units Vial ONE (14:37)
[2016-10-20] MEDS ORDERED: DuoNeb 0.5-3(2.5)mg/3ml neb HHN PRN (16:30)
[2016-10-20] MEDS ORDERED: Mylanta II UD 30ml ORAL PRN (16:30)
[2016-10-20 17:38] LABS: ALANINE AMINOTRANSFERASE 39 U/L (3-41); ALBUMIN/GLOBULIN RATIO 0.9 (1.0-2.7); ANION GAP 15 (5-15); ASPARTATE AMINO TRANSFERASE 30 U/L (5-40); CARBON DIOXIDE 23 mEQ/L (20-30); CHLORIDE 96 mEQ/L (98-107); CREATININE 1.2 mg/dL (0.7-1.2); GLOMERULAR FILTRATION RATE > 60 mL/min (>60); HEMOLYSIS 13; MEAN CORPUSCULAR HGB CONC 30.4 G/DL (32.0-36.0); MEAN CORPUSCULAR VOLUME 79 FL (80-99); PLATELET COUNT 146 K/UL (150-450); POTASSIUM 4.9 mEQ/L (3.4-4.9); RED BLOOD COUNT 5.85 M/UL (4.70-6.10); RED CELL DISTRIBUTION WIDTH 16.7 % (11.6-14.8); SODIUM 134 mEQ/L (135-145); TOTAL PROTEIN 7.3 g/dL (6.6-8.7); WHITE BLOOD COUNT 16.6 K/UL (4.8-10.8)
[2016-10-20 18:11] LABS: INR 1.1 (0.9-1.1); PROTHROMBIN TIME 10.8 SEC (9.30-11.50)
[2016-10-20 18:27] LABS: BAND NEUTROPHILS % (MANUAL) 3 % (0-8); BASOPHILS % (MANUAL) 1 % (0-2); EOSINOPHILS % (MANUAL) 2 % (0-3); LYMPHOCYTES % (MANUAL) 9 % (20-45); NEUTROPHILS % (MANUAL) 81 % (45-75); TOTAL CELLS COUNTED 100
[2016-10-20 18:28] LABS: PLATELET ESTIMATE DECREASED; PLATELET MORPHOLOGY NORMAL
[2016-10-20] MEDS: ceFAZolin sod 2 GM in D5W 110 ML IV SCH (18:45)
[2016-10-20] MEDS ORDERED: D5 1/2NS 1,000 ML IV SCH (20:00)
--- NOTE | 2016-10-20 21:39 | Pulmonolgy Critical Care Note ---
Critical Care - Asmt/Plan Problems: (1) thoracoscopy (2) Lung mass (3) Pulmonary emboli (4) Acute encephalopathy (5) History of asthma Respiratory: monitor respiratory rate, adjust FIO2 Cardiac: continue to monitor HR/BP Infectious Disease: check cultures Gastrointestinal: continue feedings/current rate Endocrine: monitor blood sugar, check TSH, continue sliding scale insulin Hematologic: monitor H/H, transfuse if hgb<8.5 Neurologic: PRN Morphine, keep patient comfortable Affect: PRN ativan Prophylaxis: Protonix Time Spent (Minutes): 40 Notes Reviewed: cardio, renal Discussed with: nurses, consultants, immigration case workercasino manager - Objective Last 24 Hour Vital Signs Date Time Temp Pulse Resp B/P Pulse Ox O2 Delivery O2 Flow Rate FiO2 10/20/16 19:05 83 20 Room Air 21 10/20/16 16:00 98.0 85 22 117/72 100 Simple Mask 10.0 10/20/16 14:59 97.4 85 21 113/75 100 Simple Mask 10.0 128/72 10/20/16 14:45 86 21 106/72 100 Simple Mask 10.0 124/71 10/20/16 14:29 85 21 104/67 98 Simple Mask 10.0 120/70 10/20/16 14:16 87 21 99/68 98 Simple Mask 10.0 10/20/16 14:16 87 16 100 10/20/16 14:11 87 21 99/62 98 Simple Mask 10.0 10/20/16 14:06 97.2 85 21 101/64 100 Simple Mask 10.0 10/20/16 08:47 97.5 74 18 119/66 95 Room Air 10/20/16 07:22 80 20 Room Air 21 10/20/16 04:00 97.9 88 18 119/72 97 Room Air 10/20/16 00:00 97.7 73 18 145/84 97 Room Air Status: sedated Condition: improving HEENT: atraumatic Neck: full ROM Heart: HR/BP stable, HR/BP unstable Abdomen: non-tender, active bowel sounds Extremities: no C/C/E Decubiti: location Critical Care - Subjective ROS Limited/Unobtainable: No ICU Day: 1 Condition: critical, improving FI02: 21 Sputum Amount: None I&O: Intake and Output 10/19/16 10/20/16 19:00 07:00 Intake Total 1211.2 ml 300.2 ml Output Total 500 ml Balance 711.2 ml 300.2 ml Intake Oral 850 ml 240 ml IV Total 361.2 ml 60.2 ml Output Urine Total 500 ml # Voids 4 3 CXR: chest tube in place SATURNINO GALLEGOS Oct 20, 2016 21:39
--- NOTE | 2016-10-20 23:58 | Operative Note - Dictated ---
DATE OF OPERATION: 10/20/2016 SURGEON: Tripp Lopez M.D., Thoracic Surgery. GIRL FRIDAY SURGEON: Isaiah Humphreys M.D. PREOPERATIVE DIAGNOSIS: Right upper lobe lung mass. POSTOPERATIVE DIAGNOSIS: Right upper lobe lung mass. PROCEDURE PERFORMED: 1. Flexible bronchoscopy. 2. Right video-assisted thoracoscopic surgery. 3. Intrapleural pneumolysis. 4. Right upper lobe wedge resection. 5. Repair of right upper lobe air leak. 6. Right middle lobe bullous resection. 7. Intercostal nerve block ANESTHESIA: Double-lumen general anesthesia. INDICATION FOR PROCEDURE: The patient is a 51-year-old male, who was admitted to [facility] with a pulmonary embolism as well as incidental finding of right upper lobe lung mass. He was taken to the operating room for surgical biopsy. The risks and benefits of the proposed operation were explained to the patient in detail including, but not limited to bleeding, infection, air leak, the need for blood transfusion, anesthetic complication, and less 1%. In addition, alternative versus no treatment options were also discussed. The patient fully understand the rationale behind the purpose of the operation with all questions answered to his satisfaction. DESCRIPTION OF PROCEDURE: After obtaining informed consent, the patient was then brought to the operating room and placed in a supine position and a surgical time-out was performed. After induction of general anesthesia, an indwelling Baker, arterial line, and DADA hose stockings were placed. The flexible bronchoscope was introduced through the endotracheal tube. The trachea and barrera were inspected. The barrera was in the midline and sharp. The right tracheobronchial tree down to the subsegmental level was grossly normal and no endobronchial lesions were seen. Similarly, the left mainstem bronchus was intubated and no obvious endobronchial lesions were visualized at the subsegmental level. A minimal amount of mucopurulent secretions were lavaged and suctioned clear. The bronchoscope was pulled back and removed. The patient tolerated the procedure well with oxygen saturation greater than 96% throughout the procedure. Next, the patient was then placed in a left lateral decubitus position, prepped and draped in the usual sterile fashion. The patient also received preoperative intravenous antibiotics. A 1.5 cm incision was made at the fifth intercostal space in the midaxillary line. Dissection was then carried down into the subcutaneous tissue. A counter incision was made at the third intercostal space in the midaxillary line. This allowed the introduction of a grasper into the right hemithorax. Under direct visualization, there was noted to be some adhesions and these were taken down using a combination of sharp and blunt electrocauterization. After freeing the lung from the surrounding chest wall, we then proceeded to examine the right upper lobe; the mass was found in the posterior segment of the right upper lobe. This mass was then resected using a serial firing of the Endostapler and placed into an endobag. On the back table, the mass was then sectioned into half and front desk representative tissue was submitted for tissue culture and the remaining was submitted for frozen section. Frozen section of the right upper lobe mass was deemed to be negative for malignancy. However, the definitive diagnosis is deferred to permanent section. At this point, we then proceeded to examine the staple line of the right upper lobe. There appears to be in a large parenchymal air leak at the staple line from the firing of the Endostapler. This staple line was then controlled with another serial firing of Endostapler. After repairing the right upper lobe air leak, we then proceeded to examine the middle as well as right middle lobe. There appears to be no other abnormality except for a right middle lobe bulla was identified laterally. Under direct visualization, this bulla was then resected using a single firing of Endostapler and labelled as right middle lobe bullae. At the end of the procedure, the intercostal nerve block was performed from 2nd to the 8th intercoastal space with 40 mL of 0.25% Marcaine. The chest was then irrigated with 2 mL of bacitracin-containing saline solution. After suctioning, hemostasis was then assured. A 28-Turkish chest tube was inserted into the right hemithorax directly at the apex. The lung was allowed to inflate under direct visualization and the video camera was then removed. The chest anchored at the skin level using 0-Ethibond sutures x2 and then connected to a suction Pleur-evac. The wound was then reapproximated with two layers with 3-0 Vicryl suture and the skin was reapproximated with 4-0 Monocryl. Steri-Strips and dry dressing was applied. The patient tolerated the procedure well without any complication. [place] and sponges were correct at the end of the operation. He was then transported to the intensive care unit in a satisfactory condition. ESTIMATED BLOOD LOSS: Minimal. COMPLICATIONS: None. SPECIMEN SUBMITTED: 1. Right upper lobe mass resection. 2. Right upper lobe wedge resection for control of parenchymal air leaks. 3. Right middle lobe bullous resection. Yin M.D. DR: JUNITO JOB#: [id number] CC: JACKELYN
[2016-10-21] VITALS (18 sets, daily range): BP systolic 102–144; BP diastolic 66–96
[2016-10-21] MEDS: ceFAZolin sod 2 GM in D5W 110 ML IV SCH ×2 (02:04→09:19)
[2016-10-21] MEDS: Morphine Sulfate 4mg/ml Inj IM PRN ×3 (03:45→13:11)
[2016-10-21 04:58] LABS: MEAN CORPUSCULAR HEMOGLOBIN 24.4 PG (27.0-31.0); MEAN CORPUSCULAR HGB CONC 31.3 G/DL (32.0-36.0); MEAN CORPUSCULAR VOLUME 78 FL (80-99); MEAN PLATELET VOLUME 8.6 FL (6.5-10.1); PLATELET COUNT 185 K/UL (150-450); RED CELL DISTRIBUTION WIDTH 16.6 % (11.6-14.8); WHITE BLOOD COUNT 15.8 K/UL (4.8-10.8)
[2016-10-21] MEDS ORDERED: Heparin 25,000u/D5W 500ml 500 ML IV SCH ×3 (05:00→16:30)
[2016-10-21 05:08] LABS: INR 1.1 (0.9-1.1); PROTHROMBIN TIME 10.7 SEC (9.30-11.50)
[2016-10-21 05:19] LABS: IONIZED CALCIUM 1.08 mmol/L (1.10-1.35)
[2016-10-21 05:23] LABS: ALANINE AMINOTRANSFERASE 34 U/L (3-41); ALBUMIN/GLOBULIN RATIO 0.9 (1.0-2.7); ANION GAP 14 (5-15); ASPARTATE AMINO TRANSFERASE 27 U/L (5-40); CALCIUM 9.3 mg/dL (8.6-10.2); CARBON DIOXIDE 27 mEQ/L (20-30); CHLORIDE 96 mEQ/L (98-107); CREATININE 1.3 mg/dL (0.7-1.2); GLOMERULAR FILTRATION RATE > 60 mL/min (>60); HEMOLYSIS 2; SODIUM 137 mEQ/L (135-145); TOTAL PROTEIN 7.5 g/dL (6.6-8.7)
--- NOTE | 2016-10-21 08:26 | Diagnostic Imaging Report ---
Indication: POST-OP, status post thoracotomy Technique: One view of the chest Comparison: 10/14/2016 Findings: There is now a right chest tube. There is right suprahilar atelectasis. Right suprahilar opacity may represent atelectatic lung or could reflect the recently biopsied lung mass interface more cephalad position due to upper lobe atelectatic changes. No gross pneumothorax. There is some left perihilar atelectasis. No focal airspace consolidation. Heart size is normal there are no effusions. Impression: Postsurgical changes, as described Right suprahilar atelectatic changes Right suprahilar opacity, may reflect atelectatic lung or the previously described right lung mass if this was not completely resected Minimal left perihilar atelectatic changes.
--- NOTE | 2016-10-21 09:36 | 48 Hour Post Anesthesia Eval ---
Post Anesthesia Evaluation Procedure: Vats, Bx Date of Evaluation: Oct 21, 2016 Time of Evaluation: 09:35 Blood Pressure Systolic: 124 0: 74 Pulse Rate: 78 Respiratory Rate: 24 Temperature (Fahrenheit): 97.5 O2 Sat by Pulse Oximetry: 96 Airway: patent Nausea: No Vomiting: No Pain Intensity: 3 Hydration Status: adequate Cardiopulmonary Status: stable Mental Status/LOC: patient returned to baseline Follow-up Care/Observations: n/a Post-Anesthesia Complications: none Follow-up care needed: N/A ONIEL RAMOS M.D. Oct 21, 2016 09:36
[2016-10-21] MEDS ORDERED: Sterile Water Irrig 1000ml IRRIG ONE (09:38)
[2016-10-21] MEDS ORDERED: Zemuron 50mg/5ml Inj IV ONE (09:38)
[2016-10-21] MEDS ORDERED: NS Irrig 1000ml ONE (09:38)
[2016-10-21] MEDS ORDERED: Propofol 10mg/ml 20ml IV ONE (09:38)
[2016-10-21] MEDS ORDERED: Glycopyrrolate 0.2mg/ml 1ml Vial ONE (09:38)
[2016-10-21] MEDS ORDERED: Labetalol 5mg/ml 20ml vial IV ONE (09:38)
[2016-10-21] MEDS ORDERED: Lidocaine 1% MPF 10mg/ml 5ml ONE (09:38)
[2016-10-21] MEDS ORDERED: fentaNYL 100 mcg/2 mL IV ONE (09:38)
[2016-10-21] MEDS ORDERED: Dexamethasone 4mg/ml vial ONE (09:38)
[2016-10-21] MEDS ORDERED: LR 1000ml ONE ×2 (09:38)
[2016-10-21] MEDS ORDERED: Neostigmine 1mg/ml 10ml Inj ONE (09:38)
[2016-10-21] MEDS ORDERED: Midazolam 2mg/2ml Inj ONE (09:38)
[2016-10-21 10:22] LABS: BAND NEUTROPHILS % (MANUAL) 1 % (0-8); BASOPHILS % (MANUAL) 0 % (0-2); EOSINOPHILS % (MANUAL) 0 % (0-3); LYMPHOCYTES % (MANUAL) 5 % (20-45); NEUTROPHILS % (MANUAL) 90 % (45-75); PLATELET ESTIMATE ADEQUATE; PLATELET MORPHOLOGY NORMAL; TOTAL CELLS COUNTED 100
[2016-10-21 10:23] LABS: ANISOCYTOSIS 1+
[2016-10-21 10:31] LABS: ABG PCO2 56.3 mmHg (35.0-45.0)
--- NOTE | 2016-10-21 10:31 | Pulmonolgy Critical Care Note ---
Critical Care - Asmt/Plan Problems: (1) thoracoscopy (2) Lung mass (3) Pulmonary emboli (4) Acute encephalopathy (5) History of asthma Respiratory: monitor respiratory rate, adjust FIO2, CXR Cardiac: continue to monitor HR/BP Renal: F/U I&O Infectious Disease: check cultures, continue antibiotics Gastrointestinal: continue feedings/current rate Endocrine: monitor blood sugar, check HgA1C Neurologic: PRN Ativan Affect: PRN ativan Prophylaxis: Protonix Notes Reviewed: cardio, renal Discussed with: consultants, outpatient case managerrecruiter account manager - Objective Last 24 Hour Vital Signs Date Time Temp Pulse Resp B/P Pulse Ox O2 Delivery O2 Flow Rate FiO2 10/21/16 09:36 78 24 96 10/21/16 09:00 86 17 124/85 94 Nasal Cannula 5.0 10/21/16 08:00 97.7 94 23 123/90 94 Nasal Cannula 5.0 10/21/16 08:00 92 10/21/16 07:00 88 19 102/67 94 Nasal Cannula 5.0 10/21/16 06:00 83 21 109/66 94 Nasal Cannula 5.0 10/21/16 05:00 90 20 110/71 94 Nasal Cannula 5.0 10/21/16 04:00 98.0 86 21 108/71 94 Nasal Cannula 5.0 10/21/16 03:00 93 21 115/70 94 Nasal Cannula 5.0 10/21/16 02:00 92 23 136/73 94 Nasal Cannula 5.0 10/21/16 01:00 104 23 125/69 94 Nasal Cannula 5.0 10/21/16 00:00 98.2 102 21 115/80 96 Nasal Cannula 5.0 10/20/16 22:00 104 21 136/87 93 Nasal Cannula 5.0 10/20/16 21:00 103 21 129/89 96 Nasal Cannula 5.0 10/20/16 20:00 98.4 103 21 129/89 96 Simple Mask 10.0 10/20/16 19:05 83 20 Room Air 21 10/20/16 19:00 102 21 115/80 96 Simple Mask 10.0 10/20/16 18:00 92 20 119/77 96 Simple Mask 10.0 10/20/16 17:00 85 22 117/72 100 Simple Mask 10.0 10/20/16 16:00 98.0 85 22 117/72 100 Simple Mask 10.0 10/20/16 14:59 97.4 85 21 113/75 100 Simple Mask 10.0 128/72 10/20/16 14:45 86 21 106/72 100 Simple Mask 10.0 124/71 10/20/16 14:29 85 21 104/67 98 Simple Mask 10.0 120/70 10/20/16 14:16 87 21 99/68 98 Simple Mask 10.0 10/20/16 14:16 87 16 100 10/20/16 14:11 87 21 99/62 98 Simple Mask 10.0 10/20/16 14:06 97.2 85 21 101/64 100 Simple Mask 10.0 Status: awake Condition: improving HEENT: atraumatic, normocephalic Neck: full ROM Lungs: chest wall tender Heart: HR/BP stable, regular Abdomen: soft, non-tender, feeding tube Extremities: no C/C/E, edema Critical Care - Subjective ROS Limited/Unobtainable: No Condition: improving EKG Rhythm: Sinus Rhythm FI02: 21 Sputum Amount: None Drips: heparin drip I&O: Intake and Output 10/20/16 10/21/16 19:00 07:00 Intake Total 1800 ml 1190.464 ml Output Total 1140 ml 1274 ml Balance 660 ml -83.536 ml Intake Oral 200 ml IV Total 1800 ml 990.464 ml Output Urine Total 790 ml 1200 ml Chest Tube Drainage Total 74 ml Estimated Blood Loss 350 ml Labs: Laboratory Tests Test 10/20/16 17:00 10/21/16 03:00 10/21/16 04:00 White Blood Count 16.6 K/UL (4.8-10.8) #H 15.8 K/UL (4.8-10.8) H Red Blood Count 5.85 M/UL (4.70-6.10) 5.60 M/UL (4.70-6.10) Hemoglobin 14.0 G/DL (14.2-18.0) L 13.7 G/DL (14.2-18.0) L Hematocrit 46.1 % (42.0-52.0) 43.7 % (42.0-52.0) Mean Corpuscular Volume 79 FL (80-99) L 78 FL (80-99) L Mean Corpuscular Hemoglobin 24.0 PG (27.0-31.0) L 24.4 PG (27.0-31.0) L Mean Corpuscular Hemoglobin Concent 30.4 G/DL (32.0-36.0) L 31.3 G/DL (32.0-36.0) L Red Cell Distribution Width 16.7 % (11.6-14.8) H 16.6 % (11.6-14.8) H Platelet Count 146 K/UL (150-450) L 185 K/UL (150-450) Mean Platelet Volume 8.0 FL (6.5-10.1) 8.6 FL (6.5-10.1) Neutrophils (%) (Auto) % (45.0-75.0) % (45.0-75.0) Lymphocytes (%) (Auto) % (20.0-45.0) % (20.0-45.0) Monocytes (%) (Auto) % (1.0-10.0) % (1.0-10.0) Eosinophils (%) (Auto) % (0.0-3.0) % (0.0-3.0) Basophils (%) (Auto) % (0.0-2.0) % (0.0-2.0) Differential Total Cells Counted 100 100 Neutrophils % (Manual) 81 % (45-75) H 90 % (45-75) H Lymphocytes % (Manual) 9 % (20-45) L 5 % (20-45) L Monocytes % (Manual) 4 % (1-10) 4 % (1-10) Eosinophils % (Manual) 2 % (0-3) 0 % (0-3) Basophils % (Manual) 1 % (0-2) 0 % (0-2) Band Neutrophils 3 % (0-8) 1 % (0-8) Platelet Estimate Decreased L Adequate Platelet Morphology Normal Normal Red Blood Cell Morphology Normal Prothrombin Time 10.8 SEC (9.30-11.50) 10.7 SEC (9.30-11.50) Prothromb Time International Ratio 1.1 (0.9-1.1) 1.1 (0.9-1.1) Activated Partial Thromboplast Time 24 SEC (23-33) 28 SEC (23-33) Sodium Level 134 mEQ/L (135-145) L 137 mEQ/L (135-145) Potassium Level 4.9 mEQ/L (3.4-4.9) 5.0 mEQ/L (3.4-4.9) H Chloride Level 96 mEQ/L (98-107) L 96 mEQ/L (98-107) L Carbon Dioxide Level 23 mEQ/L (20-30) 27 mEQ/L (20-30) Anion Gap 15 (5-15) 14 (5-15) Blood Urea Nitrogen 11 mg/dL (7-23) 11 mg/dL (7-23) Creatinine 1.2 mg/dL (0.7-1.2) 1.3 mg/dL (0.7-1.2) H Estimat Glomerular Filtration Rate > 60 mL/min (>60) > 60 mL/min (>60) Glucose Level 122 mg/dL (74-106) H 144 mg/dL (74-106) H Calcium Level 9.0 mg/dL (8.6-10.2) 9.3 mg/dL (8.6-10.2) Ionized Calcium (Measured) 0.97 mmol/L (1.10-1.35) L 1.08 mmol/L (1.10-1.35) L Total Bilirubin 0.5 mg/dL (0.0-1.2) 0.3 mg/dL (0.0-1.2) Aspartate Amino Transf (AST/SGOT) 30 U/L (5-40) 27 U/L (5-40) Alanine Aminotransferase (ALT/SGPT) 39 U/L (3-41) 34 U/L (3-41) Alkaline Phosphatase 142 U/L (40-129) H 149 U/L (40-129) H Total Protein 7.3 g/dL (6.6-8.7) 7.5 g/dL (6.6-8.7) Albumin 3.6 g/dL (3.5-5.2) 3.7 g/dL (3.5-5.2) Globulin 3.7 g/dL 3.8 g/dL Albumin/Globulin Ratio 0.9 (1.0-2.7) L 0.9 (1.0-2.7) L Anisocytosis 1+ Erythrocyte Sedimentation Rate 29 MM/HR (0-20) H Phosphorus Level 2.0 mg/dL (2.5-4.8) L Magnesium Level 2.0 mg/dL (1.7-2.5) Arterial Blood pH Pending Arterial Blood Partial Pressure CO2 Pending Arterial Blood Partial Pressure O2 Pending Arterial Blood HCO3 Pending Arterial Blood Oxygen Saturation Pending Arterial Blood Base Excess Pending Luis E Test Pending SATURNINO GALLEGOS Oct 21, 2016 10:31
[2016-10-21 10:32] LABS: ABG ALLEN TEST POSITIVE; ABG BASE EXCESS 4.5
--- NOTE | 2016-10-21 10:44 | Diagnostic Imaging Report ---
Indication: Chest Pain Comparison: 10/20/16 13:38 A single view chest radiograph was obtained. Findings: Lung volumes remain low. There is a right chest tube, which accounting for projection is probably unchanged. Tiny apical pneumothorax is seen. There is a nodular right midlung pulmonary opacity again noted. Basilar atelectasis demonstrated. Mild vascular congestion suspected. Impression: Tiny right apical pneumothorax Mild CHF suspected. Basilar atelectasis. No significant change appreciated.
[2016-10-21 11:22] LABS: MEAN CORPUSCULAR HEMOGLOBIN 23.7 PG (27.0-31.0); MEAN CORPUSCULAR HGB CONC 30.4 G/DL (32.0-36.0); MEAN CORPUSCULAR VOLUME 78 FL (80-99); MEAN PLATELET VOLUME 9.6 FL (6.5-10.1); PLATELET COUNT 196 K/UL (150-450); RED CELL DISTRIBUTION WIDTH 16.8 % (11.6-14.8); WHITE BLOOD COUNT 18.6 K/UL (4.8-10.8)
[2016-10-21] MEDS ORDERED: Heparin 5000 units/ml inj IV ONE (12:00)
[2016-10-21 12:01] LABS: BAND NEUTROPHILS % (MANUAL) 1 % (0-8); BASOPHILS % (MANUAL) 0 % (0-2); EOSINOPHILS % (MANUAL) 0 % (0-3); LYMPHOCYTES % (MANUAL) 12 % (20-45); NEUTROPHILS % (MANUAL) 77 % (45-75); PLATELET ESTIMATE ADEQUATE; PLATELET MORPHOLOGY NORMAL; TOTAL CELLS COUNTED 100
[2016-10-21 12:02] LABS: ANISOCYTOSIS 1+; HYPOCHROMASIA 1+
[2016-10-21] MEDS ORDERED: Sodium Phosphate 30 MM in Sodium Chloride 550 ML IV ONE (12:30)
--- NOTE | 2016-10-21 12:32 | Diagnostic Imaging Report ---
Indication: Chest Pain Comparison: 10/20/16 A single view chest radiograph was obtained. Findings: Some vascular prominence noted. Right chest tube is demonstrated. There maybe a tiny pneumothorax on the right. Findings on this unchanged Impression: No change from the previous day. Oval tiny right apical pneumothorax
[2016-10-21] MEDS ORDERED: Nitroglycerin Subl 0.4mg tab (Bottle Of 25) SL PRN (15:45)
[2016-10-21] MEDS ORDERED: Morphine Sulfate 2mg/ml Inj IVP PRN (16:30)
[2016-10-21] MEDS ORDERED: DuoNeb 0.5-3(2.5)mg/3ml neb HHN PRN (16:30)
[2016-10-21] MEDS ORDERED: Mylanta II UD 30ml ORAL PRN (16:30)
[2016-10-21] MEDS ORDERED: Morphine Sulfate 4mg/ml Inj IM PRN (18:00)
[2016-10-21] MEDS ORDERED: ceFAZolin sod 2 GM in D5W 110 ML IV SCH (18:00)
--- NOTE | 2016-10-21 19:52 | Cardiology Progress Note ---
Assessment/Plan Assessment/Plan 1. Syncope. 2. Submassive right pulmonary artery pulmonary embolism. 3. Sinus tachycardia secondary to above. 4. Pleural based lung mass. 5. History of asthma. i started heparin agian this am echo no rv enlargement noted, lv function normal noted surgical plans s/p vats not malignant await final path startr yasmin patton unlikely to be covered Subjective Cardiovascular: Reports: chest pain - at site opf chest tube Respiratory: Denies: shortness of breath Gastrointestinal/Abdominal: Reports: abdominal pain Genitourinary: Denies: burning Subjective wants to walk Objective Last 24 Hour Vital Signs Date Time Temp Pulse Resp B/P Pulse Ox O2 Delivery O2 Flow Rate FiO2 10/21/16 15:28 93 10/21/16 15:00 103 28 144/96 93 Nasal Cannula 5.0 10/21/16 14:00 95 19 134/81 94 Nasal Cannula 5.0 10/21/16 13:00 97 26 129/85 94 Nasal Cannula 5.0 10/21/16 12:00 97.6 100 24 142/87 94 Nasal Cannula 5.0 10/21/16 12:00 95 10/21/16 11:00 94 21 127/87 94 Nasal Cannula 5.0 10/21/16 10:00 87 18 124/68 94 Nasal Cannula 5.0 10/21/16 09:36 78 24 96 10/21/16 09:00 86 17 124/85 94 Nasal Cannula 5.0 10/21/16 08:00 97.7 94 23 123/90 94 Nasal Cannula 5.0 10/21/16 08:00 92 10/21/16 07:00 88 19 102/67 94 Nasal Cannula 5.0 10/21/16 07:00 88 18 Nasal Cannula 5.0 40 10/21/16 06:00 83 21 109/66 94 Nasal Cannula 5.0 10/21/16 05:00 90 20 110/71 94 Nasal Cannula 5.0 10/21/16 04:00 98.0 86 21 108/71 94 Nasal Cannula 5.0 10/21/16 03:00 93 21 115/70 94 Nasal Cannula 5.0 10/21/16 02:00 92 23 136/73 94 Nasal Cannula 5.0 10/21/16 01:00 104 23 125/69 94 Nasal Cannula 5.0 10/21/16 00:00 98.2 102 21 115/80 96 Nasal Cannula 5.0 10/20/16 22:00 104 21 136/87 93 Nasal Cannula 5.0 10/20/16 21:00 103 21 129/89 96 Nasal Cannula 5.0 10/20/16 20:00 98.4 103 21 129/89 96 Simple Mask 10.0 General Appearance: no apparent distress, alert Neck: supple Cardiovascular: normal rate, regular rhythm Respiratory/Chest: rhonchi - right Abdomen: normal bowel sounds, non tender, soft Extremities: no swelling Intake and Output 10/20/16 10/21/16 19:00 07:00 Intake Total 1800 ml 1190.464 ml Output Total 1140 ml 1274 ml Balance 660 ml -83.536 ml Intake Oral 200 ml IV Total 1800 ml 990.464 ml Output Urine Total 790 ml 1200 ml Chest Tube Drainage Total 74 ml Estimated Blood Loss 350 ml Laboratory Tests Test 10/21/16 03:00 10/21/16 04:00 10/21/16 11:00 10/21/16 19:20 White Blood Count 15.8 K/UL (4.8-10.8) H 18.6 K/UL (4.8-10.8) H Red Blood Count 5.60 M/UL (4.70-6.10) 6.00 M/UL (4.70-6.10) Hemoglobin 13.7 G/DL (14.2-18.0) L 14.2 G/DL (14.2-18.0) Hematocrit 43.7 % (42.0-52.0) 46.9 % (42.0-52.0) Mean Corpuscular Volume 78 FL (80-99) L 78 FL (80-99) L Mean Corpuscular Hemoglobin 24.4 PG (27.0-31.0) L 23.7 PG (27.0-31.0) L Mean Corpuscular Hemoglobin Concent 31.3 G/DL (32.0-36.0) L 30.4 G/DL (32.0-36.0) L Red Cell Distribution Width 16.6 % (11.6-14.8) H 16.8 % (11.6-14.8) H Platelet Count 185 K/UL (150-450) 196 K/UL (150-450) Mean Platelet Volume 8.6 FL (6.5-10.1) 9.6 FL (6.5-10.1) Neutrophils (%) (Auto) % (45.0-75.0) % (45.0-75.0) Lymphocytes (%) (Auto) % (20.0-45.0) % (20.0-45.0) Monocytes (%) (Auto) % (1.0-10.0) % (1.0-10.0) Eosinophils (%) (Auto) % (0.0-3.0) % (0.0-3.0) Basophils (%) (Auto) % (0.0-2.0) % (0.0-2.0) Differential Total Cells Counted 100 100 Neutrophils % (Manual) 90 % (45-75) H 77 % (45-75) H Lymphocytes % (Manual) 5 % (20-45) L 12 % (20-45) L Monocytes % (Manual) 4 % (1-10) 10 % (1-10) Eosinophils % (Manual) 0 % (0-3) 0 % (0-3) Basophils % (Manual) 0 % (0-2) 0 % (0-2) Band Neutrophils 1 % (0-8) 1 % (0-8) Platelet Estimate Adequate Adequate Platelet Morphology Normal Normal Anisocytosis 1+ 1+ Erythrocyte Sedimentation Rate 29 MM/HR (0-20) H Prothrombin Time 10.7 SEC (9.30-11.50) Prothromb Time International Ratio 1.1 (0.9-1.1) Activated Partial Thromboplast Time 28 SEC (23-33) 62 SEC (23-33) H Pending Sodium Level 137 mEQ/L (135-145) Potassium Level 5.0 mEQ/L (3.4-4.9) H Chloride Level 96 mEQ/L (98-107) L Carbon Dioxide Level 27 mEQ/L (20-30) Anion Gap 14 (5-15) Blood Urea Nitrogen 11 mg/dL (7-23) Creatinine 1.3 mg/dL (0.7-1.2) H Estimat Glomerular Filtration Rate > 60 mL/min (>60) Glucose Level 144 mg/dL (74-106) H Calcium Level 9.3 mg/dL (8.6-10.2) Ionized Calcium (Measured) 1.08 mmol/L (1.10-1.35) L Phosphorus Level 2.0 mg/dL (2.5-4.8) L Magnesium Level 2.0 mg/dL (1.7-2.5) Total Bilirubin 0.3 mg/dL (0.0-1.2) Aspartate Amino Transf (AST/SGOT) 27 U/L (5-40) Alanine Aminotransferase (ALT/SGPT) 34 U/L (3-41) Alkaline Phosphatase 149 U/L (40-129) H Total Protein 7.5 g/dL (6.6-8.7) Albumin 3.7 g/dL (3.5-5.2) Globulin 3.8 g/dL Albumin/Globulin Ratio 0.9 (1.0-2.7) L Arterial Blood pH 7.365 (7.350-7.450) Arterial Blood Partial Pressure CO2 56.3 mmHg (35.0-45.0) *H Arterial Blood Partial Pressure O2 79.0 mmHg (75.0-100.0) Arterial Blood HCO3 31.5 mmol/L (22.0-26.0) H Arterial Blood Oxygen Saturation 95.1 % (92.0-98.0) Arterial Blood Base Excess 4.5 Luis E Test Positive Hypochromasia 1+ Lactate Dehydrogenase 219 U/L (135-230) Carcinoembryonic Antigen 1.2 ng/mL Blastomyces Ab Immunodiffusion Pending Cryptococcus Antigen Pending Histoplasma Mycelial Antibody Pending Histoplasma Antibody w Mycelial Ag Pending Histoplasma Antibody with Yeast Ag Pending TB Test (T-Spot) Pending TB Test Nil Control (T-Spot) Pending TB Test Panel A (T-Spot) Pending TB Test Panel B (T-Spot) Pending TB Test Positive Control (T-Spot) Pending Microbiology Date/Time Source Procedure Growth Status 10/20/16 12:30 Lung Right Upper Lobe Gram Stain - Final Resulted 10/20/16 12:30 Lung Right Upper Lobe Aerobic Culture - Preliminary NO GROWTH AFTER 24 HOURS Resulted 10/20/16 12:30 Lung Right Upper Lobe Anaerobic Culture Pending Resulted MICHAEL VACA Oct 21, 2016 19:52
[2016-10-21] MEDS: Norco 10mg/325mg tab ORAL PRN (20:42)
[2016-10-21] MEDS ORDERED: Warfarin Sodium 7.5mg ORAL ONE (21:00)
[2016-10-21] MEDS: Heparin 25,000u/D5W 500ml 500 ML IV SCH (21:38)
[2016-10-22] VITALS: BP 129/83
[2016-10-22] MEDS: Morphine Sulfate 4mg/ml Inj IVP PRN ×2 (00:54→09:47)
[2016-10-22] MEDS: Norco 10mg/325mg tab ORAL PRN ×2 (01:36→22:59)
[2016-10-22 04:30] VITALS: BP 128/75
[2016-10-22 04:36] LABS: BASOPHILS % (AUTO) 1.1 % (0.0-2.0); EOSINOPHILS % (AUTO) 0.4 % (0.0-3.0); LYMPHOCYTES % (AUTO) 9.6 % (20.0-45.0); MEAN CORPUSCULAR HEMOGLOBIN 24.5 PG (27.0-31.0); MEAN CORPUSCULAR HGB CONC 31.1 G/DL (32.0-36.0); MEAN CORPUSCULAR VOLUME 79 FL (80-99); MEAN PLATELET VOLUME 9.7 FL (6.5-10.1); MONOCYTES % (AUTO) 9.3 % (1.0-10.0); NEUTROPHILS % (AUTO) 79.6 % (45.0-75.0); PLATELET COUNT 221 K/UL (150-450); RED BLOOD COUNT 5.44 M/UL (4.70-6.10); RED CELL DISTRIBUTION WIDTH 17.1 % (11.6-14.8); WHITE BLOOD COUNT 17.7 K/UL (4.8-10.8)
[2016-10-22 06:10] LABS: ALANINE AMINOTRANSFERASE 29 U/L (3-41); ANION GAP 14 (5-15); ASPARTATE AMINO TRANSFERASE 28 U/L (5-40); CALCIUM 9.2 mg/dL (8.6-10.2); CARBON DIOXIDE 28 mEQ/L (20-30); CHLORIDE 96 mEQ/L (98-107); CREATININE 1.3 mg/dL (0.7-1.2); GLOMERULAR FILTRATION RATE > 60 mL/min (>60); HEMOLYSIS 11; POTASSIUM 5.5 mEQ/L (3.4-4.9); SODIUM 138 mEQ/L (135-145); TOTAL PROTEIN 7.3 g/dL (6.6-8.7)
[2016-10-22 06:54] LABS: INR 1.1 (0.9-1.1)
[2016-10-22 08:00] VITALS: BP 142/68
[2016-10-22] MEDS: Heparin 25,000u/D5W 500ml 500 ML IV SCH ×2 (09:46→17:17)
[2016-10-22] MEDS ORDERED: Miralax 17gm pkt ORAL PRN (10:30)
[2016-10-22 12:00] VITALS: BP 140/91
[2016-10-22] MEDS ORDERED: Norco 10mg/325mg tab ORAL PRN ×2 (12:00→18:00)
[2016-10-22] MEDS ORDERED: Sodium Phosphate 30 MM in Sodium Chloride 550 ML IV ONE (12:30)
--- NOTE | 2016-10-22 13:06 | Pulmonology Progress Note ---
Assessment/Plan Problems: (1) Pulmonary emboli (2) Acute encephalopathy (3) Lung mass (4) History of asthma Assessment/Plan chest tube has been removed on heparin and coumadin Subjective ROS Limited/Unobtainable: No Constitutional: Reports: no symptoms HEENT: Repors: no symptoms Respiratory: Reports: no symptoms Allergies: Coded Allergies: SHELLFISH DERIVED (Verified Allergy, Severe, seafood:Pt reports he develops swelling and hives., 10/16/16) copied from uncoded section IBUPROFEN (Verified Allergy, Unknown, 10/13/16) Objective Last 24 Hour Vital Signs Date Time Temp Pulse Resp B/P Pulse Ox O2 Delivery O2 Flow Rate FiO2 10/22/16 12:00 98.2 115 20 140/91 96 Nasal Cannula 3.0 10/22/16 08:37 106 22 Nasal Cannula 3.0 32 10/22/16 08:37 95 Nasal Cannula 3.0 32 10/22/16 08:37 Nasal Cannula 3.0 32 10/22/16 08:00 98.1 109 19 142/68 97 Nasal Cannula 3.0 10/22/16 04:30 99.5 113 24 128/75 94 Nasal Cannula 10/22/16 03:42 109 10/22/16 00:00 112 10/22/16 00:00 98.8 110 24 129/83 92 Nasal Cannula 10/21/16 20:00 98.2 97 24 130/83 92 Nasal Cannula 5.0 10/21/16 19:18 98 10/21/16 19:00 Nasal Cannula 4.0 36 10/21/16 19:00 95 Nasal Cannula 4.0 36 10/21/16 19:00 103 22 Nasal Cannula 4.0 36 10/21/16 16:00 98.2 97 20 127/84 94 Nasal Cannula 5.0 10/21/16 15:28 93 10/21/16 15:00 103 28 144/96 93 Nasal Cannula 5.0 10/21/16 14:00 95 19 134/81 94 Nasal Cannula 5.0 Intake and Output 10/21/16 10/22/16 19:00 07:00 Intake Total 2071.282 ml 886.404 ml Output Total 368 ml 1000 ml Balance 1703.282 ml -113.596 ml Intake Oral 1040 ml 180 ml IV Total 991.282 ml 706.404 ml Other 40 ml Output Urine Total 330 ml 885 ml Chest Tube Drainage Total 38 ml 115 ml Objective General Appearance: WD/WN HEENT: normocephalic, atraumatic Respiratory/Chest: chest wall non-tender, lungs clear Breasts: no masses Cardiovascular: normal peripheral pulses, normal rate, regular rhythm Abdomen: normal bowel sounds, soft, non tender, no organomegaly, non distended Genitourinary: normal external genitalia Skin: no rash, no lesions Neurologic/Psychiatric: incubator tender II-XII grossly normal Lymphatic: no neck adenopathy Musculoskeletal: normal muscle bulk Microbiology Date/Time Source Procedure Growth Status 10/20/16 12:30 Lung Right Upper Lobe Gram Stain - Final Resulted 10/20/16 12:30 Lung Right Upper Lobe Aerobic Culture - Preliminary Resulted 10/20/16 12:30 Lung Right Upper Lobe Anaerobic Culture - Preliminary Resulted Laboratory Tests 10/21/16 19:20: Activated Partial Thromboplast Time > 150*H 10/22/16 03:30: Activated Partial Thromboplast Time 69H, White Blood Count 17.7H, Red Blood Count 5.44, Hemoglobin 13.3L, Hematocrit 42.8, Mean Corpuscular Volume 79L, Mean Corpuscular Hemoglobin 24.5L, Mean Corpuscular Hemoglobin Concent 31.1L, Red Cell Distribution Width 17.1H, Platelet Count 221, Mean Platelet Volume 9.7 , Neutrophils (%) (Auto) 79.6H, Lymphocytes (%) (Auto) 9.6L, Monocytes (%) (Auto ) 9.3, Eosinophils (%) (Auto) 0.4, Basophils (%) (Auto) 1.1, Prothrombin Time 11.0, Prothromb Time International Ratio 1.1, Sodium Level 138, Potassium Level 5.5H, Chloride Level 96L, Carbon Dioxide Level 28, Anion Gap 14, Blood Urea Nitrogen 14, Creatinine 1.3H, Estimat Glomerular Filtration Rate > 60, Glucose Level 129H, Calcium Level 9.2, Total Bilirubin 0.4, Aspartate Amino Transf (AST/ SGOT) 28, Alanine Aminotransferase (ALT/SGPT) 29, Alkaline Phosphatase 141H, Total Protein 7.3, Albumin 3.8, Globulin 3.5, Albumin/Globulin Ratio 1.0 Current Medications Medications (Trade) Dose Ordered Sig/Katia Route PRN Reason Start Time Stop Time Status Last Admin Dose Admin Acetaminophen (Tylenol) 650 mg Q4H PRN ORAL fever 10/21/16 16:30 11/20/16 16:29 Acetaminophen/ Hydrocodone Bitart ([place] 10/325) 1 ea Q4H PRN ORAL Moderate Pain (Pain Scale 4-6) 10/21/16 18:00 10/28/16 17:59 10/22/16 01:36 Acetaminophen/ Hydrocodone Bitart ([place] 10/325) 2 ea Q4H PRN ORAL Severe Pain (Pain Scale 7-10) 10/22/16 12:00 10/29/16 11:59 Al Hydroxide/Mg Hydroxide (Mylanta II) 30 ml Q6H PRN ORAL dyspepsia 10/21/16 16:30 11/20/16 16:29 Albuterol/ Ipratropium (DuoNeb 0.5-3(2.5)mg/3ml) 3 ml Q8H PRN HHN Shortness of Breath 10/21/16 16:30 10/26/16 16:29 Dextrose (Dextrose 50%) STAT PRN IV Hypoglycemia 10/22/16 10:30 11/21/16 10:29 Heparin Sodium/ Dextrose (Heparin) 500 ml @ 40.206 mls/ hr adjust per protocol IV 10/21/16 21:30 11/20/16 21:29 10/22/16 09:46 Nitroglycerin (Ntg) 0.4 mg Q5M X 3 DOSES PRN SL Prn Chest Pain 10/21/16 15:45 11/20/16 15:44 Ondansetron HCl (Zofran) 4 mg Q6H PRN IVP Nausea & Vomiting 10/21/16 16:30 11/20/16 16:29 10/22/16 09:46 Polyethylene Glycol (Miralax) 17 gm HSPRN PRN ORAL Constipation 10/22/16 10:30 11/21/16 10:29 Temazepam (Restoril) 15 mg HSPRN PRN ORAL Insomnia 10/21/16 16:30 10/28/16 16:29 10/22/16 02:13 Warfarin Sodium (Coumadin) 7.5 mg COUMADIN ONCE ORAL 10/22/16 17:00 10/22/16 17:01 Warfarin Sodium 1 ea 1 ea DAILY PRN MISC Per rx protocol 10/21/16 20:00 4/21/17 19:59 SATURNINO GALLEGOS Oct 22, 2016 13:06
--- NOTE | 2016-10-22 13:34 | Diagnostic Imaging Report ---
Indication: Status post chest tube removal Comparison: 10/22/16 at 07:18 A single view chest radiograph was obtained. Findings: The study is limited because of overexposure. Right chest tube was removed. There is a questionable tiny right apical pneumothorax. Impression: Questionable tiny right apical pneumothorax
--- NOTE | 2016-10-22 14:38 | Diagnostic Imaging Report ---
Indication: Dyspnea Comparison: 10/21/2016 A single view chest radiograph was obtained. Findings: Chest tube position is unchanged. Cardiomegaly is stable. Parenchymal opacities appear unchanged in severity and configuration. Impression: No definite pneumothorax seen currently.
[2016-10-22 16:00] VITALS: BP 148/80
[2016-10-22] MEDS ORDERED: Nitroglycerin Subl 0.4mg tab (Bottle Of 25) SL PRN (16:15)
[2016-10-22] MEDS ORDERED: DuoNeb 0.5-3(2.5)mg/3ml neb HHN PRN (16:30)
[2016-10-22] MEDS ORDERED: Mylanta II UD 30ml ORAL PRN (16:30)
[2016-10-22] MEDS ORDERED: Warfarin Sodium 7.5mg ORAL ONE ×2 (17:00)
--- NOTE | 2016-10-22 18:21 | Cardiology Progress Note ---
Assessment/Plan Assessment/Plan 1. Syncope. 2. Submassive right pulmonary artery pulmonary embolism. 3. Sinus tachycardia secondary to above. 4. Pleural based lung mass. 5. History of asthma. 6. tachy on heparin hgb stable as of 3 am will repeat stat in lighto ftachy echo no rv enlargement noted, lv function normal ct removed cxr ? small PTX? s/p vats not malignant await final path started on couamteresa patton unlikely to be covered bu insurance jose f need repat stat cxr and cb and ekg telel appear to shwo sinus tachy , etiology ? Subjective Cardiovascular: Denies: chest pain, lightheadedness, palpitations Respiratory: Denies: shortness of breath Gastrointestinal/Abdominal: Denies: abdominal pain Subjective ct removed Objective Last 24 Hour Vital Signs Date Time Temp Pulse Resp B/P Pulse Ox O2 Delivery O2 Flow Rate FiO2 10/22/16 16:00 97.9 149 20 148/80 96 10/22/16 12:00 90 10/22/16 12:00 98.2 115 20 140/91 96 Nasal Cannula 3.0 10/22/16 08:37 106 22 Nasal Cannula 3.0 32 10/22/16 08:37 95 Nasal Cannula 3.0 32 10/22/16 08:37 Nasal Cannula 3.0 32 10/22/16 08:00 89 10/22/16 08:00 98.1 109 19 142/68 97 Nasal Cannula 3.0 10/22/16 04:30 99.5 113 24 128/75 94 Nasal Cannula 10/22/16 03:42 109 10/22/16 00:00 112 10/22/16 00:00 98.8 110 24 129/83 92 Nasal Cannula 10/21/16 20:00 98.2 97 24 130/83 92 Nasal Cannula 5.0 10/21/16 19:18 98 10/21/16 19:00 Nasal Cannula 4.0 36 10/21/16 19:00 95 Nasal Cannula 4.0 36 10/21/16 19:00 103 22 Nasal Cannula 4.0 36 General Appearance: no apparent distress, alert Neck: supple Cardiovascular: normal rate, tachycardia Respiratory/Chest: lungs clear, normal breath sounds Abdomen: normal bowel sounds, non tender, soft Extremities: no swelling Intake and Output 10/21/16 10/22/16 19:00 07:00 Intake Total 2071.282 ml 886.404 ml Output Total 368 ml 1000 ml Balance 1703.282 ml -113.596 ml Intake Oral 1040 ml 180 ml IV Total 991.282 ml 706.404 ml Other 40 ml Output Urine Total 330 ml 885 ml Chest Tube Drainage Total 38 ml 115 ml Laboratory Tests Test 10/21/16 19:20 10/22/16 03:30 Activated Partial Thromboplast Time > 150 SEC (23-33) *H 69 SEC (23-33) H White Blood Count 17.7 K/UL (4.8-10.8) H Red Blood Count 5.44 M/UL (4.70-6.10) Hemoglobin 13.3 G/DL (14.2-18.0) L Hematocrit 42.8 % (42.0-52.0) Mean Corpuscular Volume 79 FL (80-99) L Mean Corpuscular Hemoglobin 24.5 PG (27.0-31.0) L Mean Corpuscular Hemoglobin Concent 31.1 G/DL (32.0-36.0) L Red Cell Distribution Width 17.1 % (11.6-14.8) H Platelet Count 221 K/UL (150-450) Mean Platelet Volume 9.7 FL (6.5-10.1) Neutrophils (%) (Auto) 79.6 % (45.0-75.0) H Lymphocytes (%) (Auto) 9.6 % (20.0-45.0) L Monocytes (%) (Auto) 9.3 % (1.0-10.0) Eosinophils (%) (Auto) 0.4 % (0.0-3.0) Basophils (%) (Auto) 1.1 % (0.0-2.0) Prothrombin Time 11.0 SEC (9.30-11.50) Prothromb Time International Ratio 1.1 (0.9-1.1) Sodium Level 138 mEQ/L (135-145) Potassium Level 5.5 mEQ/L (3.4-4.9) H Chloride Level 96 mEQ/L (98-107) L Carbon Dioxide Level 28 mEQ/L (20-30) Anion Gap 14 (5-15) Blood Urea Nitrogen 14 mg/dL (7-23) Creatinine 1.3 mg/dL (0.7-1.2) H Estimat Glomerular Filtration Rate > 60 mL/min (>60) Glucose Level 129 mg/dL (74-106) H Calcium Level 9.2 mg/dL (8.6-10.2) Total Bilirubin 0.4 mg/dL (0.0-1.2) Aspartate Amino Transf (AST/SGOT) 28 U/L (5-40) Alanine Aminotransferase (ALT/SGPT) 29 U/L (3-41) Alkaline Phosphatase 141 U/L (40-129) H Total Protein 7.3 g/dL (6.6-8.7) Albumin 3.8 g/dL (3.5-5.2) Globulin 3.5 g/dL Albumin/Globulin Ratio 1.0 (1.0-2.7) Microbiology Date/Time Source Procedure Growth Status 10/20/16 12:30 Lung Right Upper Lobe Gram Stain - Final Resulted 10/20/16 12:30 Lung Right Upper Lobe Aerobic Culture - Preliminary Resulted 10/20/16 12:30 Lung Right Upper Lobe Anaerobic Culture - Preliminary Resulted MICHAEL VACA Oct 22, 2016 18:21
[2016-10-22 19:27] LABS: BASOPHILS % (AUTO) 1.3 % (0.0-2.0); EOSINOPHILS % (AUTO) 1.2 % (0.0-3.0); LYMPHOCYTES % (AUTO) 11.6 % (20.0-45.0); MEAN CORPUSCULAR HEMOGLOBIN 24.4 PG (27.0-31.0); MEAN CORPUSCULAR HGB CONC 30.3 G/DL (32.0-36.0); MEAN CORPUSCULAR VOLUME 80 FL (80-99); MEAN PLATELET VOLUME 8.5 FL (6.5-10.1); MONOCYTES % (AUTO) 5.8 % (1.0-10.0); NEUTROPHILS % (AUTO) 80.2 % (45.0-75.0); PLATELET COUNT 173 K/UL (150-450); RED BLOOD COUNT 4.71 M/UL (4.70-6.10); RED CELL DISTRIBUTION WIDTH 16.4 % (11.6-14.8)
[2016-10-22 20:00] VITALS: BP 114/63
[2016-10-22 20:09] LABS: ALANINE AMINOTRANSFERASE 25 U/L (3-41); ALBUMIN/GLOBULIN RATIO 0.9 (1.0-2.7); ANION GAP 15 (5-15); ASPARTATE AMINO TRANSFERASE 23 U/L (5-40); CALCIUM 9.3 mg/dL (8.6-10.2); CARBON DIOXIDE 29 mEQ/L (20-30); CHLORIDE 90 mEQ/L (98-107); CREATININE 1.2 mg/dL (0.7-1.2); GLOMERULAR FILTRATION RATE > 60 mL/min (>60); HEMOLYSIS 1; POTASSIUM 4.6 mEQ/L (3.4-4.9); SODIUM 134 mEQ/L (135-145); TOTAL PROTEIN 7.2 g/dL (6.6-8.7)
[2016-10-23] VITALS (8 sets, daily range): BP systolic 110–137; BP diastolic 66–88
[2016-10-23] MEDS: Heparin 25,000u/D5W 500ml 500 ML IV SCH ×3 (00:33→18:47)
[2016-10-23 04:22] LABS: BASOPHILS % (AUTO) 0.6 % (0.0-2.0); EOSINOPHILS % (AUTO) 1.3 % (0.0-3.0); LYMPHOCYTES % (AUTO) 12.5 % (20.0-45.0); MEAN CORPUSCULAR HEMOGLOBIN 24.5 PG (27.0-31.0); MEAN CORPUSCULAR HGB CONC 31.4 G/DL (32.0-36.0); MEAN CORPUSCULAR VOLUME 78 FL (80-99); MEAN PLATELET VOLUME 8.3 FL (6.5-10.1); MONOCYTES % (AUTO) 9.4 % (1.0-10.0); NEUTROPHILS % (AUTO) 76.3 % (45.0-75.0); PLATELET COUNT 176 K/UL (150-450); RED BLOOD COUNT 4.54 M/UL (4.70-6.10); RED CELL DISTRIBUTION WIDTH 16.9 % (11.6-14.8); WHITE BLOOD COUNT 14.9 K/UL (4.8-10.8)
[2016-10-23 04:42] LABS: INR 1.1 (0.9-1.1); PROTHROMBIN TIME 11.1 SEC (9.30-11.50)
[2016-10-23 04:46] LABS: ALANINE AMINOTRANSFERASE 25 U/L (3-41); ALBUMIN/GLOBULIN RATIO 0.8 (1.0-2.7); ANION GAP 13 (5-15); ASPARTATE AMINO TRANSFERASE 25 U/L (5-40); CARBON DIOXIDE 28 mEQ/L (20-30); CHLORIDE 92 mEQ/L (98-107); CREATININE 1.2 mg/dL (0.7-1.2); GLOMERULAR FILTRATION RATE > 60 mL/min (>60); HEMOLYSIS 2; SODIUM 133 mEQ/L (135-145); TOTAL PROTEIN 6.8 g/dL (6.6-8.7)
[2016-10-23] MEDS ORDERED: Heparin 25,000u/D5W 500ml 500 ML IV SCH (05:19)
[2016-10-23] MEDS ORDERED: Heparin 5000 units/ml inj IV ONE (05:30)
--- NOTE | 2016-10-23 10:03 | Diagnostic Imaging Report ---
Indication: Shortness of breath Technique: One view of the chest Comparison: 8 hours earlier Findings: Right midlung hazy and nodular opacity persists. There is some atelectasis at the left lung base and possibly some pleural fluid. Findings are unchanged Impression: Unchanged, over 8 hours, findings as above.
[2016-10-23] MEDS ORDERED: Miralax 17gm pkt ORAL PRN (10:30)
[2016-10-23] MEDS: Norco 10mg/325mg tab ORAL PRN ×2 (10:50→17:17)
--- NOTE | 2016-10-23 11:31 | Diagnostic Imaging Report ---
Indication: Cough Technique: One view of the chest Comparison: 10/22/2016 Findings: Right mid and lower lung infiltrates are unchanged. Left basilar atelectasis and possibly some consolidation is unchanged. Impression: Unchanged, over one day, findings as above.
[2016-10-23 13:12] LABS: CRYPTOCOCCAL ANTIGEN SERUM Negative (Negative)
[2016-10-23] MEDS ORDERED: Warfarin Sodium 10mg ORAL ONE (17:00)
--- NOTE | 2016-10-23 22:45 | Pulmonology Progress Note ---
Assessment/Plan Problems: (1) Pulmonary emboli (2) Acute encephalopathy (3) Lung mass (4) History of asthma Assessment/Plan chest tube has been removed on heparin and coumadin Subjective Allergies: Coded Allergies: SHELLFISH DERIVED (Verified Allergy, Severe, seafood:Pt reports he develops swelling and hives., 10/16/16) copied from uncoded section IBUPROFEN (Verified Allergy, Unknown, 10/13/16) Objective Last 24 Hour Vital Signs Date Time Temp Pulse Resp B/P Pulse Ox O2 Delivery O2 Flow Rate FiO2 10/23/16 20:02 Nasal Cannula 3.0 32 10/23/16 20:02 118 20 Nasal Cannula 3.0 32 10/23/16 20:02 96 Nasal Cannula 3.0 32 10/23/16 19:00 98.8 125 18 126/80 94 Simple Mask 3.0 125 10/23/16 16:00 98.4 123 20 123/82 73 10/23/16 16:00 110 10/23/16 12:00 108 10/23/16 11:39 98.1 110 20 137/78 95 Venturi Mask 4.0 10/23/16 08:31 97.9 123 20 110/82 95 Nasal Cannula 4.0 10/23/16 08:29 Nasal Cannula 4.0 36 10/23/16 08:00 124 10/23/16 07:54 110 20 Nasal Cannula 3.0 32 10/23/16 07:54 97 Nasal Cannula 4.0 36 10/23/16 07:50 97.9 123 20 110/82 95 Venturi Mask 4.0 10/23/16 04:10 98.4 97 20 110/66 97 Venturi Mask 10/23/16 04:00 110 10/23/16 00:25 99.0 114 20 135/88 95 Venturi Mask 10/23/16 00:00 115 Intake and Output 10/22/16 10/23/16 19:00 07:00 Intake Total 350.420 ml 575.256 ml Output Total 200 ml 1000 ml Balance 150.420 ml -424.744 ml Intake Oral 200 ml IV Total 350.420 ml 375.256 ml Output Urine Total 100 ml 1000 ml Chest Tube Drainage Total 100 ml # Voids 1 Objective General Appearance: WD/WN HEENT: normocephalic, atraumatic Respiratory/Chest: chest wall non-tender, lungs clear Breasts: no masses Cardiovascular: normal peripheral pulses, normal rate, regular rhythm Abdomen: normal bowel sounds, soft, non tender, no organomegaly, non distended Genitourinary: normal external genitalia Skin: no rash, no lesions 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 Lymphatic: no neck adenopathy Musculoskeletal: normal muscle bulk Laboratory Tests 10/23/16 04:10: White Blood Count 14.9H, Red Blood Count 4.54L, Hemoglobin 11.1L, Hematocrit 35.4L, Mean Corpuscular Volume 78L, Mean Corpuscular Hemoglobin 24.5L, Mean Corpuscular Hemoglobin Concent 31.4L, Red Cell Distribution Width 16.9H, Platelet Count 176, Mean Platelet Volume 8.3, Neutrophils (%) (Auto) 76.3H, Lymphocytes (%) (Auto) 12.5L, Monocytes (%) (Auto) 9.4, Eosinophils (%) (Auto) 1.3, Basophils (%) (Auto) 0.6, Prothrombin Time 11.1, Prothromb Time International Ratio 1.1, Activated Partial Thromboplast Time 31, Sodium Level 133L, Potassium Level 5.0H, Chloride Level 92L, Carbon Dioxide Level 28, Anion Gap 13, Blood Urea Nitrogen 12, Creatinine 1.2, Estimat Glomerular Filtration Rate > 60, Glucose Level 138H, Calcium Level 9.0, Total Bilirubin 0.5, Aspartate Amino Transf (AST/SGOT) 25, Alanine Aminotransferase (ALT/SGPT) 25, Alkaline Phosphatase 126, Total Protein 6.8, Albumin 3.2L, Globulin 3.6, Albumin /Globulin Ratio 0.8L 10/23/16 12:00: Activated Partial Thromboplast Time 111H 10/23/16 20:30: Activated Partial Thromboplast Time 81H Current Medications Medications (Trade) Dose Ordered Sig/Katia Route PRN Reason Start Time Stop Time Status Last Admin Dose Admin Acetaminophen (Tylenol) 650 mg Q4H PRN ORAL fever 10/22/16 16:30 11/21/16 16:29 Acetaminophen/ Hydrocodone Bitart ([place] 10/325) 1 ea Q4H PRN ORAL Moderate Pain (Pain Scale 4-6) 10/22/16 18:00 10/29/16 17:59 Acetaminophen/ Hydrocodone Bitart ([place] 10/325) 2 ea Q4H PRN ORAL Severe Pain (Pain Scale 7-10) 10/22/16 20:00 10/29/16 19:59 10/23/16 17:17 Al Hydroxide/Mg Hydroxide (Mylanta II) 30 ml Q6H PRN ORAL dyspepsia 10/22/16 16:30 11/21/16 16:29 Albuterol/ Ipratropium (DuoNeb 0.5-3(2.5)mg/3ml) 3 ml Q8H PRN HHN Shortness of Breath 10/22/16 16:30 10/27/16 16:29 Dextrose (Dextrose 50%) STAT PRN IV Hypoglycemia 10/23/16 10:30 11/22/16 10:29 Heparin Sodium/ Dextrose (Heparin) 500 ml @ 42.719 mls/ hr adjust per protocol IV 10/23/16 14:30 11/22/16 14:29 10/23/16 18:47 Nitroglycerin (Ntg) 0.4 mg Q5M X 3 DOSES PRN SL Prn Chest Pain 10/22/16 16:15 11/21/16 16:14 Ondansetron HCl (Zofran) 4 mg Q6H PRN IVP Nausea & Vomiting 10/22/16 16:30 11/21/16 16:29 Polyethylene Glycol (Miralax) 17 gm HSPRN PRN ORAL Constipation 10/23/16 10:30 11/22/16 10:29 Temazepam (Restoril) 15 mg HSPRN PRN ORAL Insomnia 10/22/16 16:30 10/29/16 16:29 Warfarin Sodium 1 ea 1 ea DAILY PRN MISC Per rx protocol 10/23/16 09:00 11/22/16 08:59 SATURNINO GALLEGOS Oct 23, 2016 22:45
[2016-10-24] VITALS: BP 121/66
[2016-10-24 04:00] VITALS: BP 106/70
[2016-10-24 05:23] LABS: INR 1.7 (0.9-1.1); PROTHROMBIN TIME 17.2 SEC (9.30-11.50)
[2016-10-24] MEDS: Heparin 25,000u/D5W 500ml 500 ML IV SCH ×2 (06:21→21:22)
[2016-10-24] MEDS: Norco 10mg/325mg tab ORAL PRN ×3 (06:40→22:48)
[2016-10-24 08:00] VITALS: BP 111/70
--- NOTE | 2016-10-24 10:52 | Wound Care Consultation ---
Wound Assessment Wound Assessment : Wound Number: #1 Wound Present on Admission: No New Wound: Yes Status Change of Wound: No Wound Location Body Site Modif: right, lateral Wound Location Body Site: other - torso Andrez Test: Does not Andrez Traumatic Injury Wounds: Skin Tear Wound Thickness: Partial Thickness Wound Length: 1.0 Wound Width: 1.0 Wound Depth: <0.1 Percent of Wound [place]/Red: 100 Wound Drainage Description: Serosanguineous Wound Drainage Amount: Scant Wound Drainage Odor: None/Absent Tissue Surrounding Wound: Intact Wound General Appearance: Reddened Wound Comment #1 right lateral torso skin tear. RECOMMENDATION. - Local wound care as ordered. - Turn and reposition. - Keep clean and dry. -Optimize nutrition. -Assess and notify MD for any changes of condition. MUSTAPHA OROZCO Oct 24, 2016 10:52
--- NOTE | 2016-10-24 10:54 | Diagnostic Imaging Report ---
Indication: Shortness of breath Technique: XRAY CHEST 1 V Comparison: 10/23/16 Findings: Cardiomediastinal silhouette is stable. Right perihilar and basilar infiltrates are again noted. Left basilar atelectasis is unchanged. Osseous structures are stable. Impression: No interval change from 10/23/16.
--- NOTE | 2016-10-24 11:41 | Pulmonology Progress Note ---
Assessment/Plan Problems: (1) Pulmonary emboli (2) Acute encephalopathy (3) Lung mass (4) History of asthma Assessment/Plan awaiting biopsy results on heparin and coumadin Subjective ROS Limited/Unobtainable: No Constitutional: Reports: no symptoms Respiratory: Reports: no symptoms Allergies: Coded Allergies: SHELLFISH DERIVED (Verified Allergy, Severe, seafood:Pt reports he develops swelling and hives., 10/16/16) copied from uncoded section IBUPROFEN (Verified Allergy, Unknown, 10/13/16) Objective Last 24 Hour Vital Signs Date Time Temp Pulse Resp B/P Pulse Ox O2 Delivery O2 Flow Rate FiO2 10/24/16 08:00 101 10/24/16 08:00 97.9 112 18 111/70 92 Room Air 112 10/24/16 04:00 94 10/24/16 04:00 98.6 94 20 106/70 95 Venturi Mask 10/24/16 00:00 126 10/23/16 20:02 Nasal Cannula 3.0 32 10/23/16 20:02 118 20 Nasal Cannula 3.0 32 10/23/16 20:02 96 Nasal Cannula 3.0 32 10/23/16 20:00 127 10/23/16 19:00 98.8 125 18 126/80 94 Simple Mask 3.0 125 10/23/16 16:00 98.4 123 20 123/82 73 10/23/16 16:00 110 10/23/16 12:00 108 Intake and Output 10/23/16 10/24/16 19:00 07:00 Intake Total 581.320 ml 1187.190 ml Output Total 700 ml Balance 581.320 ml 487.190 ml Intake Oral 170 ml 760 ml IV Total 411.320 ml 427.190 ml Output Urine Total 700 ml # Voids 1 7 Objective General Appearance: WD/WN HEENT: normocephalic, atraumatic Respiratory/Chest: chest wall non-tender, lungs clear Breasts: no masses Cardiovascular: normal peripheral pulses, normal rate, regular rhythm Abdomen: normal bowel sounds, soft, non tender, no organomegaly, non distended Genitourinary: normal external genitalia Skin: no rash, no lesions 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 Lymphatic: no neck adenopathy Musculoskeletal: normal muscle bulk Laboratory Tests 10/23/16 12:00: Activated Partial Thromboplast Time 111H 10/23/16 20:30: Activated Partial Thromboplast Time 81H 10/24/16 04:20: Activated Partial Thromboplast Time 108H, Prothrombin Time 17.2H, Prothromb Time International Ratio 1.7H Current Medications Medications (Trade) Dose Ordered Sig/Katia Route PRN Reason Start Time Stop Time Status Last Admin Dose Admin Acetaminophen (Tylenol) 650 mg Q4H PRN ORAL fever 10/22/16 16:30 11/21/16 16:29 Acetaminophen/ Hydrocodone Bitart ([place] 10/325) 1 ea Q4H PRN ORAL Moderate Pain (Pain Scale 4-6) 10/22/16 18:00 10/29/16 17:59 Acetaminophen/ Hydrocodone Bitart ([place] 10/325) 2 ea Q4H PRN ORAL Severe Pain (Pain Scale 7-10) 10/22/16 20:00 10/29/16 19:59 10/24/16 06:40 Al Hydroxide/Mg Hydroxide (Mylanta II) 30 ml Q6H PRN ORAL dyspepsia 10/22/16 16:30 11/21/16 16:29 Albuterol/ Ipratropium (DuoNeb 0.5-3(2.5)mg/3ml) 3 ml Q8H PRN HHN Shortness of Breath 10/22/16 16:30 10/27/16 16:29 Dextrose (Dextrose 50%) STAT PRN IV Hypoglycemia 10/23/16 10:30 11/22/16 10:29 Heparin Sodium/ Dextrose (Heparin) 500 ml @ 35.181 mls/ hr adjust per protocol IV 10/24/16 06:10 11/23/16 06:09 10/24/16 06:21 Nitroglycerin (Ntg) 0.4 mg Q5M X 3 DOSES PRN SL Prn Chest Pain 10/22/16 16:15 11/21/16 16:14 Ondansetron HCl (Zofran) 4 mg Q6H PRN IVP Nausea & Vomiting 10/22/16 16:30 11/21/16 16:29 Polyethylene Glycol (Miralax) 17 gm HSPRN PRN ORAL Constipation 10/23/16 10:30 11/22/16 10:29 Temazepam (Restoril) 15 mg HSPRN PRN ORAL Insomnia 10/22/16 16:30 10/29/16 16:29 Warfarin Sodium (Coumadin) 5 mg COUMADIN ORAL 10/24/16 17:00 10/24/16 17:01 Warfarin Sodium 1 ea 1 ea DAILY PRN MISC Per rx protocol 10/23/16 09:00 11/22/16 08:59 SATURNINO GALLEGOS Oct 24, 2016 11:41
[2016-10-24 12:00] VITALS: BP 120/83
[2016-10-24] MEDS ORDERED: Tubing IV Secondary IV ONE (14:10)
[2016-10-24] MEDS ORDERED: NS 275ml ONE (14:10)
[2016-10-24] MEDS ORDERED: D5 1/2NS 1000ml IV ONE (14:10)
--- NOTE | 2016-10-24 15:00 | Cardiology Progress Note ---
Assessment/Plan Problem List: (1) Pulmonary emboli (2) Lung mass Status: stable, progressing Status Narrative Mr. Lerma is hemodynamically stable. Bilat acute pulm emboli, now on iv heparin and warfarin He has lung mass - s/p bx , awating results. Assessment/Plan Continue iv heparin until inr therapeutic on warfarin. Lung mass - s/p bx , with results pending. Pt on TB /ariborne precautions until test results obtained. Subjective ROS Limited/Unobtainable: No Subjective No c/o chest pain, cough, sputum prodn Objective Last 24 Hour Vital Signs Date Time Temp Pulse Resp B/P Pulse Ox O2 Delivery O2 Flow Rate FiO2 10/24/16 12:00 97.9 117 17 120/83 95 Room Air 109 10/24/16 12:00 101 10/24/16 08:00 101 10/24/16 08:00 97.9 112 18 111/70 92 Room Air 112 10/24/16 04:00 94 10/24/16 04:00 98.6 94 20 106/70 95 Venturi Mask 10/24/16 00:00 126 10/23/16 20:02 Nasal Cannula 3.0 32 10/23/16 20:02 118 20 Nasal Cannula 3.0 32 10/23/16 20:02 96 Nasal Cannula 3.0 32 10/23/16 20:00 127 10/23/16 19:00 98.8 125 18 126/80 94 Simple Mask 3.0 125 10/23/16 16:00 98.4 123 20 123/82 73 10/23/16 16:00 110 General Appearance: WD/WN, no apparent distress, alert Neck: non-tender, supple, no JVD Cardiovascular: normal rate, regular rhythm Respiratory/Chest: lungs clear Abdomen: non tender, soft Extremities: no swelling Intake and Output 10/23/16 10/24/16 19:00 07:00 Intake Total 581.320 ml 1187.190 ml Output Total 700 ml Balance 581.320 ml 487.190 ml Intake Oral 170 ml 760 ml IV Total 411.320 ml 427.190 ml Output Urine Total 700 ml # Voids 1 7 Laboratory Tests Test 10/23/16 20:30 10/24/16 04:20 10/24/16 12:10 Activated Partial Thromboplast Time 81 SEC (23-33) H 108 SEC (23-33) H 78 SEC (23-33) H Prothrombin Time 17.2 SEC (9.30-11.50) H Prothromb Time International Ratio 1.7 (0.9-1.1) H JAZMIN ARTEAGA Oct 24, 2016 15:00
[2016-10-24 16:00] VITALS: BP 118/68
[2016-10-24] MEDS ORDERED: Warfarin Sodium 5mg ORAL SCH (17:00)
[2016-10-24 17:14] LABS: BLASTOMYCES AB - ID Negative (Neg:<1:1)
[2016-10-24 20:00] VITALS: BP 126/76
[2016-10-25] VITALS: BP 148/88
[2016-10-25 04:00] VITALS: BP 117/80
[2016-10-25] MEDS: Norco 10mg/325mg tab ORAL PRN (07:57)
[2016-10-25 08:00] VITALS: BP 113/72
[2016-10-25 10:41] LABS: INR 2.6 (0.9-1.1); PROTHROMBIN TIME 27.4 SEC (9.30-11.50)
--- NOTE | 2016-10-25 11:11 | Diagnostic Imaging Report ---
Clinical history: Concern for pneumothorax. Technique: Portable AP chest radiograph was obtained. Comparison: 10/24/16. Findings: There is no significant interval change in the interval, allowing for differences in technique and positioning. Impression: Persistent confluent right lung opacities suspicious for asymmetric pulmonary edema or pneumonia. Probable small right pleural effusion. Continued surveillance to ensure resolution is recommended. No definite pneumothorax identified.
[2016-10-25 12:00] VITALS: BP 119/72
[2016-10-25] MEDS: Heparin 25,000u/D5W 500ml 500 ML IV SCH (14:05)
--- NOTE | 2016-10-25 14:17 | Cardiology Progress Note ---
Assessment/Plan Problem List: (1) Pulmonary emboli (2) Lung mass Status: stable, progressing Status Narrative Mr. Lerma is hemodynamically stable. Bilat acute pulm emboli, now on iv heparin and warfarin INR is therapeutic , on warfarin Assessment/Plan Plan for dc home today noted. He will continue warfarin w/ outpt inr monitoring and will followup the results of his lung bx w/ primary MD Subjective ROS Limited/Unobtainable: No Subjective No c/o . Anxious for dc Objective Last 24 Hour Vital Signs Date Time Temp Pulse Resp B/P Pulse Ox O2 Delivery O2 Flow Rate FiO2 10/25/16 12:00 98.1 112 17 119/72 93 10/25/16 12:00 99 10/25/16 08:00 101 10/25/16 08:00 96.9 110 19 113/72 92 Nasal Cannula 3.0 10/25/16 07:45 95 Nasal Cannula 3.0 32 10/25/16 07:45 Nasal Cannula 3.0 32 10/25/16 07:45 100 18 Nasal Cannula 3.0 32 10/25/16 04:00 91 10/25/16 04:00 98.1 100 20 117/80 98 Venturi Mask 10/25/16 00:00 97.0 111 18 148/88 95 Venturi Mask 10/25/16 00:00 101 10/24/16 20:00 113 10/24/16 20:00 97.8 110 20 126/76 94 Venturi Mask 10/24/16 19:59 114 18 Nasal Cannula 3.0 32 10/24/16 19:59 Nasal Cannula 3.0 32 10/24/16 19:59 95 Nasal Cannula 3.0 32 10/24/16 16:00 98.2 109 22 118/68 94 Venturi Mask 10/24/16 16:00 103 General Appearance: WD/WN, no apparent distress, alert Rhythm: NSR Cardiovascular: normal rate, regular rhythm, no gallop/murmur Respiratory/Chest: lungs clear Abdomen: non tender, soft Intake and Output 10/24/16 10/25/16 19:00 07:00 Intake Total 1102.172 ml 682.172 ml Output Total 600 ml 300 ml Balance 502.172 ml 382.172 ml Intake Oral 680 ml 260 ml IV Total 422.172 ml 422.172 ml Output Urine Total 600 ml 300 ml # Voids 3 2 Laboratory Tests Test 10/25/16 04:20 10/25/16 10:00 Activated Partial Thromboplast Time 74 SEC (23-33) H Prothrombin Time 27.4 SEC (9.30-11.50) H Prothromb Time International Ratio 2.6 (0.9-1.1) H JAZMIN ARTEAGA Oct 25, 2016 14:17
[2016-10-25 16:00] VITALS: BP 134/79
--- NOTE | 2016-10-25 18:36 | Cardiology Report ---
APPROVED REPORT EKG Measurement Heart [id number] Sinus tachycardia Otherwise normal ECG
[2016-10-25 20:00] VITALS: BP 136/78
--- NOTE | 2016-10-25 22:27 | Pulmonology Progress Note ---
Assessment/Plan Problems: (1) Pulmonary emboli (2) Acute encephalopathy (3) Lung mass (4) History of asthma Assessment/Plan awaiting biopsy results on heparin and coumadin Subjective Allergies: Coded Allergies: SHELLFISH DERIVED (Verified Allergy, Severe, seafood:Pt reports he develops swelling and hives., 10/16/16) copied from uncoded section IBUPROFEN (Verified Allergy, Unknown, 10/13/16) Objective Last 24 Hour Vital Signs Date Time Temp Pulse Resp B/P Pulse Ox O2 Delivery O2 Flow Rate FiO2 10/25/16 20:00 98.2 111 20 136/78 95 10/25/16 19:20 Nasal Cannula 3.0 32 10/25/16 19:20 95 18 Nasal Cannula 3.0 32 10/25/16 19:20 95 Nasal Cannula 3.0 32 10/25/16 16:00 97.8 100 21 134/79 94 10/25/16 16:00 94 10/25/16 12:00 98.1 112 17 119/72 93 10/25/16 12:00 99 10/25/16 08:00 101 10/25/16 08:00 96.9 110 19 113/72 92 Nasal Cannula 3.0 10/25/16 07:45 95 Nasal Cannula 3.0 32 10/25/16 07:45 Nasal Cannula 3.0 32 10/25/16 07:45 100 18 Nasal Cannula 3.0 32 10/25/16 04:00 91 10/25/16 04:00 98.1 100 20 117/80 98 Venturi Mask 10/25/16 00:00 97.0 111 18 148/88 95 Venturi Mask 10/25/16 00:00 101 Intake and Output 10/24/16 10/25/16 19:00 07:00 Intake Total 1102.172 ml 682.172 ml Output Total 600 ml 300 ml Balance 502.172 ml 382.172 ml Intake Oral 680 ml 260 ml IV Total 422.172 ml 422.172 ml Output Urine Total 600 ml 300 ml # Voids 3 2 Objective General Appearance: WD/WN HEENT: normocephalic, atraumatic Respiratory/Chest: chest wall non-tender, lungs clear Breasts: no masses Cardiovascular: normal peripheral pulses, normal rate, regular rhythm Abdomen: normal bowel sounds, soft, non tender, no organomegaly, non distended Genitourinary: normal external genitalia Skin: no rash, no lesions 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 normal Lymphatic: no neck adenopathy Musculoskeletal: normal muscle bulk Laboratory Tests 10/25/16 04:20: Activated Partial Thromboplast Time 74H 10/25/16 10:00: Prothrombin Time 27.4H, Prothromb Time International Ratio 2.6H Current Medications Medications (Trade) Dose Ordered Sig/Katia Route PRN Reason Start Time Stop Time Status Last Admin Dose Admin Acetaminophen (Tylenol) 650 mg Q4H PRN ORAL fever 10/22/16 16:30 11/21/16 16:29 Acetaminophen/ Hydrocodone Bitart ([place] 10/325) 1 ea Q4H PRN ORAL Moderate Pain (Pain Scale 4-6) 10/22/16 18:00 10/29/16 17:59 Acetaminophen/ Hydrocodone Bitart ([place] 10/325) 2 ea Q4H PRN ORAL Severe Pain (Pain Scale 7-10) 10/22/16 20:00 10/29/16 19:59 10/25/16 07:57 Al Hydroxide/Mg Hydroxide (Mylanta II) 30 ml Q6H PRN ORAL dyspepsia 10/22/16 16:30 11/21/16 16:29 Albuterol/ Ipratropium (DuoNeb 0.5-3(2.5)mg/3ml) 3 ml Q8H PRN HHN Shortness of Breath 10/22/16 16:30 10/27/16 16:29 Dextrose (Dextrose 50%) STAT PRN IV Hypoglycemia 10/23/16 10:30 11/22/16 10:29 Heparin Sodium/ Dextrose (Heparin) 500 ml @ 35.181 mls/ hr adjust per protocol IV 10/24/16 06:10 11/23/16 06:09 10/25/16 14:05 Nitroglycerin (Ntg) 0.4 mg Q5M X 3 DOSES PRN SL Prn Chest Pain 10/22/16 16:15 11/21/16 16:14 Ondansetron HCl (Zofran) 4 mg Q6H PRN IVP Nausea & Vomiting 10/22/16 16:30 11/21/16 16:29 Polyethylene Glycol (Miralax) 17 gm HSPRN PRN ORAL Constipation 10/23/16 10:30 11/22/16 10:29 Temazepam (Restoril) 15 mg HSPRN PRN ORAL Insomnia 10/22/16 16:30 10/29/16 16:29 Warfarin Sodium 1 ea 1 ea DAILY PRN MISC Per rx protocol 10/23/16 09:00 11/22/16 08:59 SATURNINO GALLEGOS Oct 25, 2016 22:26
[2016-10-26 00:05] VITALS: BP 130/72
[2016-10-26 04:30] VITALS: BP 113/76
[2016-10-26 07:12] LABS: MEAN CORPUSCULAR HEMOGLOBIN 24.8 PG (27.0-31.0); MEAN CORPUSCULAR HGB CONC 32.2 G/DL (32.0-36.0); MEAN CORPUSCULAR VOLUME 77 FL (80-99); MEAN PLATELET VOLUME 9.6 FL (6.5-10.1); PLATELET COUNT 88 K/UL (150-450); RED BLOOD COUNT 3.56 M/UL (4.70-6.10); RED CELL DISTRIBUTION WIDTH 16.2 % (11.6-14.8); WHITE BLOOD COUNT 16.3 K/UL (4.8-10.8)
[2016-10-26 07:24] LABS: INR 2.2 (0.9-1.1); PROTHROMBIN TIME 22.7 SEC (9.30-11.50)
[2016-10-26 07:44] LABS: ALANINE AMINOTRANSFERASE 20 U/L (3-41); ALBUMIN/GLOBULIN RATIO 0.8 (1.0-2.7); ANION GAP 10 (5-15); ASPARTATE AMINO TRANSFERASE 22 U/L (5-40); CALCIUM 8.7 mg/dL (8.6-10.2); CARBON DIOXIDE 30 mEQ/L (20-30); CHLORIDE 93 mEQ/L (98-107); CREATININE 1.1 mg/dL (0.7-1.2); GLOMERULAR FILTRATION RATE > 60 mL/min (>60); HEMOLYSIS 2; PHOSPHORUS 3.3 mg/dL (2.5-4.8); POTASSIUM 4.5 mEQ/L (3.4-4.9); SODIUM 133 mEQ/L (135-145); TOTAL PROTEIN 6.4 g/dL (6.6-8.7)
[2016-10-26 07:58] LABS: T SPOT TB NEGATIVE
[2016-10-26 07:59] LABS: NIL (NEG) CONTROL SPOT COUNT 0 (0-9); PANEL A SPOT COUNT 0; PANEL B SPOT COUNT 1; POSITIVE CONTROL SPOT COUNT > 20
[2016-10-26 08:00] VITALS: BP 124/79
[2016-10-26 09:05] LABS: BAND NEUTROPHILS % (MANUAL) 0 % (0-8); BASOPHILS % (MANUAL) 1 % (0-2); EOSINOPHILS % (MANUAL) 2 % (0-3); LYMPHOCYTES % (MANUAL) 14 % (20-45); NEUTROPHILS % (MANUAL) 75 % (45-75); PLATELET ESTIMATE DECREASED; TOTAL CELLS COUNTED 100
[2016-10-26 09:06] LABS: ANISOCYTOSIS 1+; HYPOCHROMASIA 2+; MICROCYTES 1+; PLATELET MORPHOLOGY NORMAL; SPHEROCYTES 1+
[2016-10-26 12:00] VITALS: BP 122/71
--- NOTE | 2016-10-26 13:04 | Diagnostic Imaging Report ---
Indication: DYSPNEA Technique: One view of the chest Comparison: 10/25/2016 Findings: There is decreasing right midlung infiltrate. There is persistent right basilar atelectasis. There is persistent minimal left lateral basilar atelectasis. Heart size is normal Impression: Improving right lung, over one day Other stable findings as described
[2016-10-26] MEDS ORDERED: COUMADIN5 MG ORAL (13:57)
[2016-10-26] MEDS ORDERED: Warfarin Sodium 3mg ORAL ONE (17:00)
--- NOTE | 2016-10-26 23:01 | Pulmonology Progress Note ---
Assessment/Plan Problems: (1) Pulmonary emboli (2) Acute encephalopathy (3) Lung mass (4) History of asthma Assessment/Plan awaiting biopsy results on heparin and coumadin Subjective Allergies: Coded Allergies: SHELLFISH DERIVED (Verified Allergy, Severe, seafood:Pt reports he develops swelling and hives., 10/16/16) copied from uncoded section IBUPROFEN (Verified Allergy, Unknown, 10/13/16) Objective Last 24 Hour Vital Signs Date Time Temp Pulse Resp B/P Pulse Ox O2 Delivery O2 Flow Rate FiO2 10/26/16 12:00 98.1 103 122/71 Room Air 103 10/26/16 12:00 104 10/26/16 08:09 Nasal Cannula 3.0 32 10/26/16 08:07 96 Nasal Cannula 3.0 32 10/26/16 08:04 97 18 Nasal Cannula 3.0 32 10/26/16 08:00 98 10/26/16 08:00 97.0 98 18 124/79 96 Room Air 98 10/26/16 05:59 107 10/26/16 04:30 97.0 95 20 113/76 97 Simple Mask 10/26/16 04:00 99 10/26/16 00:05 98.0 111 20 130/72 96 Intake and Output 10/25/16 10/26/16 19:00 07:00 Intake Total 1031.810 ml 586.991 ml Output Total 300 ml Balance 1031.810 ml 286.991 ml Intake Oral 680 ml 200 ml IV Total 351.810 ml 386.991 ml Output Urine Total 300 ml # Voids 4 1 Objective General Appearance: WD/WN HEENT: normocephalic, atraumatic Respiratory/Chest: chest wall non-tender, lungs clear Breasts: no masses Cardiovascular: normal peripheral pulses, normal rate, regular rhythm Abdomen: normal bowel sounds, soft, non tender, no organomegaly, non distended Genitourinary: normal external genitalia Skin: no rash, no lesions 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 Lymphatic: no neck adenopathy Musculoskeletal: normal muscle bulk Microbiology Date/Time Source Procedure Growth Status 10/24/16 17:45 Sputum Gram Stain - Final Resulted 10/24/16 17:45 Sputum Sputum Culture - Preliminary NORMAL ZULMA PRESENT Resulted Laboratory Tests 10/26/16 05:00: White Blood Count 16.3H, Red Blood Count 3.56L, Hemoglobin 8.8L, Hematocrit 27.4L, Mean Corpuscular Volume 77L, Mean Corpuscular Hemoglobin 24.8L, Mean Corpuscular Hemoglobin Concent 32.2, Red Cell Distribution Width 16.2H, Platelet Count 88L, Mean Platelet Volume 9.6, Neutrophils (%) (Auto) , Lymphocytes (%) (Auto) , Monocytes (%) (Auto) , Eosinophils (%) (Auto) , Basophils (%) (Auto) , Differential Total Cells Counted 100, Neutrophils % ( Manual) 75, Lymphocytes % (Manual) 14L, Monocytes % (Manual) 8, Eosinophils % ( Manual) 2, Basophils % (Manual) 1, Band Neutrophils 0, Platelet Estimate DecreasedL, Platelet Morphology Normal, Hypochromasia 2+, Anisocytosis 1+, Microcytosis 1+, Spherocytes 1+, Prothrombin Time 22.7H, Prothromb Time International Ratio 2.2H, Activated Partial Thromboplast Time 81H, Sodium Level 133L, Potassium Level 4.5, Chloride Level 93L, Carbon Dioxide Level 30, Anion Gap 10, Blood Urea Nitrogen 9, Creatinine 1.1, Estimat Glomerular Filtration Rate > 60, Glucose Level 115H, Calcium Level 8.7, Phosphorus Level 3.3, Magnesium Level 2.0, Total Bilirubin 0.6, Aspartate Amino Transf (AST/SGOT) 22, Alanine Aminotransferase (ALT/SGPT) 20, Alkaline Phosphatase 124, Total Protein 6.4L, Albumin 3.0L, Globulin 3.4, Albumin/Globulin Ratio 0.8L SATURNINO GALLEGOS Oct 26, 2016 23:00
[2016-10-27 21:08] LABS: HISTO AB MYCELIAL Negative (Neg:<1:2); HISTOPLASMA MYCELIAL ID AB Negative (Negative)
--- NOTE | 2016-10-28 14:05 | Discharge Summary ---
Discharge Summary Hospital Course Date of Admission Oct 12, 2016 at 19:13 Date of Discharge Oct 26, 2016 at 14:49 Admitting Diagnosis ACUTE Pulmonary Emoblism HPI Valentin Lerma is a 51 year old male who was admitted on Oct 12, 2016 at 19:13 for Acute Pulmonary Embolism Hospital Course dc summary#[id number] Discharge Medications New Medications: Warfarin Sod* (Coumadin*) 5 Mg Tablet 5 MG ORAL DAILY for 30 Days, TAB Continued Medications: Albuterol Sulfate* (Albuterol Sulfate Mdi*) 8.5 Gm Hfa.aer.ad 2 PUFF INH Q4H, #1 INH 0 Refills Atorvastatin Calcium* (Lipitor*) 10 Mg Tablet 10 MG ORAL BEDTIME, TAB Discharge Condition Upon Discharge: stable Discharge Disposition Patient was discharged to Home (01) Discharge Diagnoses: Bashir ([place])Elaine NP Oct 28, 2016 14:05
--- NOTE | 2016-10-29 12:08 | Discharge Summary 2 SIG ---
DATE OF ADMISSION: 10/12/2016 DATE OF DISCHARGE: 10/26/2016 FOR ADMISSION: 51-year-old male presented to emergency room complaining of shortness of breath. He reported that he was out when he began to feel short of breath . He was thinking that he had an asthma attack. Next thing he knew, he was passed out on the ground and someone went to call paramedics. Upon presentation to the emergency department, the patient complained of shortness of breath and chest tightness. He denied any palpitation.Denied cough or congestion. No fever. No chills. Denied back or flank pain. Denied radiation of the pain. No nausea. No vomiting. Thepatient was hospitalized only one time in the past for asthma attack. Chest x-ray revealed mass in the right mid lung, measures approximately 2.3 cm. CTA of the chest/thorax was done and this test revealed findings consistent with acute submassive bilateral pulmonary embolic disease. Relative dilatation of the right ventricle was highly suggestive of right heart strain. A 3.2 cm pleural based right lung mass with satellite nodule worrisome for pulmonary malignancy. Evidence of the old granulomatous disease within left hilar lymph nodes. The patient had BUN of 13, creatinine 1.5, elevated LFT, AST 203, ALT 134, alkaline phosphatase 171. CK 188, pro BNP 406, troponin negative. No leukocytosis. Stable hemoglobin and hematocrit. Lactic acid -4.1. The patient was admitted for further management. ADMITTING DIAGNOSES: 1. Acute pulmonary emboli 2. Right upper lobe lung mass. 3. History of asthma. 4. Acute encephalopathy. HOSPITAL COURSE: The patient was started on a heparin drip and Coumadin to bridge to the therapeutic INR. Supplemental oxygen and pulmonary toilet provided as needed. The patient was on the IV fluids. Renal parameters were closely monitored. Nephrotoxics were avoided. Renal parameters improved. The patient was initially on empiric antibiotics. Sputum culture negative. Blood culture negative. The patient had undergone right upper lobe mass biopsy by Interventional Radiology. Culture was negative. Pathology for lung mass done by CT-guided biopsy revealed benign fibroadipose tissue, skeletal muscle and pleura, and no evidence of malignancy. Mental status back to normal. Surface Grinder Tender was called on the case. Troponin was negative. On telemetry, the patient showed no evidence of arrhythmia. Echocardiogram revealed ejection fraction of 60% to 65% and no evidence of left ventricular hypertrophy, right ventricular systolic pressure of 45 consistent with mild pulmonary hypertension. Venous duplex of bilateral lower extremities was negative. The patient had undergone CT of the chest, abdomen, and pelvis. CT of the chest demonstrated 3.1 x 1.8 cm mass-like lesion in the periphery of the right upper lobe. It appeared slightly smaller than on the prior study. Again demonstrated granulomatous lymph node calcification in the left hilar region. No mediastinal hilar mass or adenopathy. The esophagus was unremarkable. No effusion. Abdomen and pelvis CT revealed unremarkable liver, gallbladder, bile duct, pancreas, spleen, adrenals and kidney. No mesenteric or retroperitoneal mass or adenopathy. No pelvic mass or adenopathy. Apparent wall thickening of the distal sigmoid colon and rectum, probably artifact of non-distention. Colonic diverticulosis. No evidence of diverticulitis. No small bowel distention. Appendix was normal. No free air or fluid. Cardiothoracic surgeon was consulted for possible resection of the right upper lung mass. Subsequently, surgeon had seen and evaluated the patient and suggested right video-assisted thoracoscopic surgery and right upper lobe wedge resection. The procedure was explained in detail to the patient. The patient agreed. Heparin drip was stopped prior to surgery as per protocol. The patient had undergone on 10/20/2016 right video-assisted thoracoscopy, right upper lobe wedge resection ,repair of right upper lobeair leak, right middle lobe bullous resection with intercostal nerve block. The course of recovery was uneventful. Pain management was provided. The patient was followed up with daily chest x-ray. ABG on the day after surgery on 5 liters of oxygen revealed hypercapnia with CO2 of 56. Subsequently within the next few days, the patient was able to be weaned to room air and pulse oximetry was stable. Pulmonary toilet provided as needed. No evidence of asthma exacerbation. INR was therapeutic on 10/25/2016 -2.6. Heparin drip was stopped. The patient continued on Coumadin with dosing to keep INR in therapeutic range between 2 and 3. Surface Grinder Tender followed the patient. According to concession stand attendant, the patient was progressing and was hemodynamically stable for discharge. According to concession stand attendant, the etiology of pulmonary embolus may be related to possible neoplasm; however, the pathology of right upper lobe mass biopsy done on 10/20/2016 revealed no evidence of malignancy. Venous duplex was negative. Serial cardiac enzymes were negative. The patient continued to have intravenous hydration. The patient with evidence of right ventricular systolic pressure of 45 consistent with mild pulmonary hypertension. Sinus tachycardia, likely related to pulmonary embolism. Acute encephalopathy was probably likely due to the syncope. No arrhythmia noted on the telemetry. LFT down to normal. The patient was stable for discharge home . DISCHARGE DIAGNOSES: 1. Acute bilateral pulmonary emboli. 2. Acute toxic metabolic encephalopathy, resolved. 3. Right upper lobe lung mass. 4. Status post bronchoscopy. 5. Status post right video-assisted thoracoscopy, intrapleural pneumolysis, right upper lobe wedge resection, repair of right upper lobe air leak, right middle lobe bullous resection with intercostal nerve block. 6. Acute renal failure on chronic kidney disease, resolved. 7. Mild pulmonary hypertension. 8. Elevated transaminase, resolved. 9. History of asthma. DISCHARGE MEDICATIONS: see medications reconciliation list DISCHARGE INSTRUCTIONS: patient was discharged home. Follow up with the surgeon and primary doctor. Followup next week with primary doctor for dosing of Coumadin. Marcella Parker M.D. Elaine Augustinfabio N.PChristy DR: PATRICK JOB#: [id number] CC: JACKELYN
== END 2016-10-26 14:49 | disposition home or self-care (01) | DRG 120 ==
LOC: EDBD 17:12 → EMR 18:55 → ICU 19:13 → EDBEDREQSVC 20:02 → EDBEDREQ 20:02 → 2E 10-14 14:53 → 4E 10-16 07:16 → 3E 10-16 23:03 → ICU 10-20 14:21 → 2W 10-21 15:42 → 2E 10-22 16:17
PROC: 0BBC3ZX Excision of Right Upper Lung Lobe, Percutaneous Approach, Diagnostic (ICD-10-PCS; principal; 2016-10-14)
PROC: 0BQC4ZZ Repair Right Upper Lung Lobe, Percutaneous Endoscopic Approach (ICD-10-PCS; 2016-10-20)
PROC: 0BTD4ZZ Resection of Right Middle Lung Lobe, Percutaneous Endoscopic Approach (ICD-10-PCS; 2016-10-20)
PROC: 0BNN4ZZ Release Right Pleura, Percutaneous Endoscopic Approach (ICD-10-PCS; 2016-10-20)
PROC: 0BTC4ZZ Resection of Right Upper Lung Lobe, Percutaneous Endoscopic Approach (ICD-10-PCS; 2016-10-20)
PROC: 0BJ08ZZ Inspection of Tracheobronchial Tree, Via Natural or Artificial Opening Endoscopic (ICD-10-PCS; 2016-10-20)
DX: I26.99 Other pulmonary embolism without acute cor pulmonale (principal); G93.40 Encephalopathy, unspecified; N17.9 Acute kidney failure, unspecified; I27.2 Other secondary pulmonary hypertension; J45.909 Unspecified asthma, uncomplicated; R91.8 Other nonspecific abnormal finding of lung field; R00.0 Tachycardia, unspecified; N18.9 Chronic kidney disease, unspecified; J94.8 Other specified pleural conditions; E78.5 Hyperlipidemia, unspecified
CPT/HCPCS: 36415; 36600; 71010; 71260; 71275; 74177; 80048; 80053; 80300; 82330; 82378; 82550; 82553; 82803; 83605; 83615; 83690; 83735; 83880; 84100; 84484; 85007; 85025; 85379; 85610; 85651; 85730; 86171; 86580; 86612; 86850; 86900; 86901; 86920; 87040; 87070; 87075; 87081; 87205; 87449; 93005; 93306; 93970; 94003; 94150; 94640; 94664; 94760; J2250; J2405; J2710